=== PATIENT | female | born 1980 | race Caucasian/White ===

== ENCOUNTER 2020-10-28 10:37 | Outpatient (REF) | payer OTHER, SELFPAY ==
[2020-10-28 13:52] LABS: MANUAL DIFF FLAG NO
[2020-10-28 13:56] LABS: Basophils Percent Auto 0.3 % (0-2); Eosinophils Absolute Auto 0.3 X10*3/uL (0.0-0.4); Eosinophils Percent Auto 3.9 % (0-4); Hematocrit 39.6 % (37-47); Hemoglobin 13.2 g/dl (12.0-16.0); Imm Gran Abs Auto 0.02 X10*3/uL (0.00-0.03); Imm Gran Pct Auto 0.3 % (0.0-0.4); Lymphocytes Absolute Auto 1.8 X10*3/uL (1.2-4.9); Lymphocytes Percent Auto 26.5 % (20-40); Mean Corpuscular HGB Conc 33.3 g/dl (31.0-35.0); Mean Corpuscular Hemoglobin 28.6 pg (27.0-33.0); Mean Corpuscular Volume 85.9 fL (80-98); Mean Platelet Volume 9.9 fL (9.4-12.3); Monocytes Absolute Auto 0.6 X10*3/uL (0.1-1.2); Monocytes Percent Auto 8.5 % (2-11); Neutrophils Percent Auto 60.5 % (45-73); Platelet Count 370 X10*3/uL (160-400); Red Blood Count 4.61 X10*6/uL (4.20-5.50); Red Cell Distribution Width 12.8 % (11.0-16.0); White Blood Count 6.7 X10*3/uL (4.8-10.8)
[2020-10-28 14:09] LABS: Alanine Aminotransferase 28 U/L (0-31); Anion Gap 12 (12-20); Aspartate Amino Transferase 24 U/L (5-31); Blood Urea Nitrogen 11 mg/dL (9-16); Calcium 9.3 mg/dL (8.4-10.2); Carbon Dioxide 25 mmol/L (22-29); Chloride 107 mmol/L (96-108); Cholesterol 219 mg/dL; Estimated Glomerular Filt Rate > 60; Glucose Fasting 98 mg/dL (60-99); HDL Cholesterol 42 mg/dL; LDL Cholesterol Calculated 145 mg/dl; Potassium 4.2 mmol/L (3.3-5.1); Sodium 140 mmol/L (135-145); Triglycerides 162 mg/dL
[2020-10-28 14:47] LABS: Folate 13.3 ng/mL (> or = 4.0); Vitamin B12 339 pg/mL (200-900)
== END 2020-10-28 10:38 | disposition home or self-care (01) ==
LOC: HO.HMGCLDS 10:37
PROVIDERS: PCP Internal Medicine; Visit Provider Internal Medicine
DX: Z00.00 Encounter for general adult medical examination without abnormal findings (principal); E66.9 Obesity, unspecified; E55.9 Vitamin D deficiency, unspecified; E78.5 Hyperlipidemia, unspecified; I10 Essential (primary) hypertension
CPT/HCPCS: 36415; 80048; 80061; 82306; 82607; 82746; 84450; 84460; 85025

== ENCOUNTER 2020-12-14 10:00 | Outpatient (RCR) | payer OTHER, SELFPAY ==
--- NOTE | 2020-10-31 13:05 | MHC.PT.EP ---
[facility] [place] [facility] [place] [facility] [place] Office [address] Zara Bender [address] [phone] F: [phone] F: [phone] F: [phone] F: [phone] Physical Therapy Plan of Care Date of Evaluation: Date of Surgery: Diagnosis: LBP, B hip pain. Assessment: Pt is a 39/yo F referred to PT for eval/treat of LBP/ B hip bursitis; S/S are consistent with lumbopelvic dysfunction resulting in decreased tolerance and ability to perform ambulatory, standing and sitting tasks for duration as well as lifting objects of weight secondary to decreased hip abd/add/ext strength, abdominal strength, and hypermobility of lumbar spine as well as (+) lumbar instability test. Pt is deemed an appropriate candidate to receive skilled PT in order to address her physical limitations to improve her functional ability. Frequency and Duration: The patient will be seen 2 x / wk x 5 wks. Short Term Goals: initiate HEP w/ compliance angelique sitting for 30mins w/o pain angelique walking for at least 30 mins w/o pain Correction Goals: B hip strength to 4+/5 - abd/add/ext; initial 4-/5 angelique walking for more than an hour w/o pain pt will report I can lift heavey weight w/o increased pain; initial - mange if they are conveniently position (Abril) pt will report sitting does not cause me pain; initial pain prevents me from sitting for more than 1 hour - (Abril) Treatment Plan: Modalities to reduce pain, spasms and effusion. Manual therapy to restore motion and function. Therapeutic exercise to improve strength and flexibility. Neuromuscular re-education for posture and balance. Therapeutic activities to return to functional activities of daily living. Electronically signed by: Gallo Wlaker PT. Please sign and return to therapist. Thank you for your referral.
--- NOTE | 2020-12-14 16:49 | MHC.PT.DC ---
[facility] [place] Office [place] Office [place] Office [address] Zara Bender [address] [phone] F: [phone] F: [phone] F: [phone] F: [phone] Physical Therapy Discharge Report Diagnosis: LBP, B hip pain. Date of Surgery: Date of Evaluation: 10/31/20 Date of Discharge: 12/14/20 Treatments to Date: 8 Cancellations to Date: 0 No Shows to Date: 0 Discharge Status: Achieved Goals Improved Function Independent with HEP Discharge Summary: 12/14: pt spent the therapy session reviewing HEP made for her to follow at home. pt performed all ther/ex w/o pain and discomfort. pt required minimal cues. within 8 visits, pt was able to address all of her physical impairments and improve functional abilities. Pt was able to achieve all of her goals. at the day of DC, pt exhibits independence with her HEP. pt has been active participant in therapy and at home. PT feels confident discharging her today, pt is also in agreement. PT recommends to pt to continue performing her HEP at home and progressing accordingly. Electronically signed by: Gallo Walker PT Please sign and return to therapist. Thank you for your referral.
== END 2020-12-14 16:50 | disposition home or self-care (01) ==
LOC: HO.PTCHIC 10:00
PROVIDERS: PCP Internal Medicine; Visit Provider Internal Medicine
DX: M70.71 Other bursitis of hip, right hip (principal); M70.72 Other bursitis of hip, left hip; M54.5 Low back pain
CPT/HCPCS: 97110; 97112; 97140; 97161

== ENCOUNTER 2021-07-12 14:27 | Outpatient (REF) | payer OTHER, SELFPAY ==
--- NOTE | ~2021-07-12 | US_ITS ---
EXAMINATION: US VENOUS ULTRASOUND WITH DOPPLER LOWER EXTREMITY, RIGHT CLINICAL INFORMATION: Right lower extremity pain. Assess for occult DVT. COMPARISON: Radiographs right knee 09/21/2016 TECHNIQUE: Ultrasound of the deep veins is performed from the hip to the calf with compression sonography and color and pulse Doppler assessment. Spectral analysis with color-flow imaging is performed. FINDINGS: There is normal venous compression and respiratory variation and augmented flow. The visualized common femoral vein, superficial femoral vein, profunda femoral vein, popliteal vein, and the trifurcation region shows no evidence of deep venous thrombosis. No popliteal fossa cyst. No edema tracking in soft tissue planes. US/US venous duplex LE RT IMPRESSION: No DVT demonstrated in the right lower extremity.
== END 2021-07-12 14:28 | disposition home or self-care (01) ==
LOC: HO.US 14:27
PROVIDERS: Visit Provider Nurse Practitioner Family
DX: M79.604 Pain in right leg (principal)
CPT/HCPCS: 93971

== ENCOUNTER → 2021-07-31 13:51 | Outpatient (BNVA) | payer OTHER, SELFPAY | PROVIDERS: PCP Internal Medicine; Referring Provider Internal Medicine; Visit Provider Surgery | DX: L02.91 Cutaneous abscess, unspecified (principal) | CPT/HCPCS: 10061; 99202 ==

== ENCOUNTER 2021-08-09 13:00 | Outpatient (RCR) | payer OTHER, SELFPAY ==
--- NOTE | 2021-06-21 15:29 | MHC.PT.EP ---
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 Pt reports onset of pain began initially 3 years ago with worsening in February 2021 due to initially with insidious onset and most recently due to prolonged sitting. She presents today with impairments in pain, hip strength, core strength, muscle tightness, and posture. Pt's current occupation is working from home with a lot of sitting, with baseline physical activities including ADLs, gardening, bending, lifting, sitting. Pt expresses fpc goal of preventing this from continuing to happen, and is motivated to work towards this in PT. Clinical presentation today is most consistent with signs and sx associated with low back pain that is likely myofascial in nature and pt will benefit from skilled PT to address the following problems and impairments noted upon evaluation: pain, hip strength, core strength, muscle tightness, and posture. These problems limit the patient with the following functional activities: ADLs, gardening, bending, lifting, sitting. The prescribed treatment plan of care is medically necessary. Co-morbidities of none were identified and taken into considerations of plan of care. Pt was educated on HEP, role of PT, prognosis, POC. Frequency and Duration: The patient will be seen 2 x week x 4 weeks Short Term Goals: Pt will demonstrate negative prone quad test in 2 weeks for improved quad muscle length. Pt will demonstrate improved hip strength by 1/3 MMT for improved lumbopelvic stability in 2 weeks. Pt will demonstrate ability to perform PPT with good TA recruitment in 2 weeks for improved core strength. Fci Goals: Pt will demonstrate improved Abril score by 10% for improved overall functional mobility in 4 weeks. Pt will demonstrate ability to bend with min to no pain or stiffness in 4 weeks for improved ability to complete LE dressing. Pt will demonstrate ability to sit x 30 min with min to no stiffness or discomfort in 4 weeks for improved tolerance to work. Pt will demonstrate ability to transfer from floor with min to no difficulty in 4 weeks for improved ability to garden as this is her family's primary means of food in the summer. Treatment Plan: Modalities to reduce pain, spasms and effusion. Manual therapy to restore motion and function. Therapeutic exercise to improve strength and flexibility. Neuromuscular re-education for posture and balance. Therapeutic activities to return to functional activities of daily living. Electronically signed by: Armida Lucas, PT, DPT, ATC Please sign and return to therapist. Thank you for your referral.
--- NOTE | 2021-08-09 14:17 | MHC.PT.DC ---
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 She is unfortunately still experiencing numbness and tingling in her foot that has not changed since start of care. She has made progress towards her goals but does still have some limitations with this numbness and tingling. She is scheduled for an EMG in September and I encouraged her to attend this appointment. If this does not show any findings she may benefit from further imaging of her back and understands to attend follow ups if this is the case. Pt encouraged to continue with her HEP to maintain all benefits made thus far. At this time max benefits of PT have been provided and skilled PT is no longer indicated at this time. Pt is in agreement with d/c today. Electronically signed by: Armida Lucas, PT, DPT, ATC Please sign and return to therapist. Thank you for your referral.
== END 2021-08-09 14:18 | disposition home or self-care (01) ==
LOC: HO.PTCHIC 13:00
PROVIDERS: PCP Internal Medicine; Visit Provider Internal Medicine
DX: G57.03 Lesion of sciatic nerve, bilateral lower limbs (principal)
CPT/HCPCS: 97110; 97140; 97161

== ENCOUNTER 2021-10-03 13:02 | Outpatient (REF) | payer OTHER, SELFPAY ==
--- NOTE | ~2021-10-03 | MR_ITS ---
EXAMINATION: MR LUMBAR SPINE WITHOUT CONTRAST CLINICAL INFORMATION: Lumbar radiculopathy. Patient reports low back pain, bilateral hip and knee pain. COMPARISON: None. TECHNIQUE: MRI of the lumbar spine was obtained using routine sequences without contrast. FINDINGS: VERTEBRAL BODIES AND PARASPINAL STRUCTURES: There is mild retrolisthesis of L4 and L5. The vertebral body alignment is otherwise anatomic. There is mild disc height loss and disc desiccation at L5-S1. There is disc desiccation at L2-L3, L4-L5. Vertebral body heights are maintained. No evidence of acute fracture. No suspicious marrow signal changes are seen. The visualized retroperitoneal structures appear unremarkable. Psoas and paraspinal musculature appear unremarkable. CONUS MEDULLARIS AND CAUDA EQUINA: There is normal signal in the distal cord and conus. Conus terminates at L1. Cauda equina roots appear unremarkable. SPINAL LEVELS: T12-L1: No significant disc bulge, central or foraminal stenosis. L1-L2: No significant disc bulge, central or foraminal stenosis. L2-L3: Disc desiccation. Mild diffuse disc bulge, including mild broad-based posterior disc bulge. There is central annular fissure. No significant central or foraminal stenosis. L3-L4: No significant disc bulge, central or foraminal stenosis. Mild left greater than right facet arthropathy. L4-L5: There is a diffuse disc bulge, including a broad-based posterior disc bulge. There is a superimposed small central disc protrusion with a suspected annular tear. This appears to abut the traversing right L4 nerve. Bilateral facet arthropathy. No significant central canal or foramen stenosis. L5-S1: Mild disc degeneration, with disc height loss, disc desiccation. Bilateral facet arthropathy. Mild broadbase posterior disc bulge. Mild central canal narrowing. No significant foraminal stenosis. MR/MR lumbar spine wo con IMPRESSION: 1. Mild retrolisthesis of L4 and L5. There is a diffuse disc bulge, with a superimposed central disc protrusion with suspected annular tear. This appears to abut the traversing right L4 nerve. 2. Broad-based disc bulge at L5-S1. Mild central canal narrowing.
== END 2021-10-03 13:03 | disposition home or self-care (01) ==
LOC: HO.MRI 13:02
PROVIDERS: Visit Provider Psychiatry & Neurology Neurology
DX: M54.16 Radiculopathy, lumbar region (principal)
CPT/HCPCS: 72148

== ENCOUNTER 2022-01-30 12:34 | Outpatient (REF) | payer OTHER, SELFPAY ==
--- NOTE | ~2022-01-30 | MM_ITS ---
EXAMINATION: MM SCREENING DIGITAL BREAST TOMOSYNTHESIS, BILATERAL CLINICAL INFORMATION: Screening. Asymptomatic. COMPARISON: Mammography: July 19, 2014 TECHNIQUE: Digital breast tomosynthesis is performed in both the craniocaudal and mediolateral oblique views along with computer-aided detection (CAD). Synthesized 2D images are generated from the tomosynthesis. FINDINGS: There are scattered areas of fibroglandular density (ACR BI-RADS breast composition Category b). There are no significant masses, abnormal calcifications, or other abnormalities. MM/MM tomosynthesis screening BI IMPRESSION: No significant changes ASSESSMENT: BI-RADS 1: Negative RECOMMENDATION: Routine annual mammography screening. This patient's information was entered into a reminder system with a target due date for their next mammogram.
== END 2022-01-30 12:35 | disposition home or self-care (01) ==
LOC: HO.MAMMO 12:34
PROVIDERS: Visit Provider Internal Medicine
DX: Z12.31 Encounter for screening mammogram for malignant neoplasm of breast (principal)
CPT/HCPCS: 77063; 77067

== ENCOUNTER 2022-09-22 22:50 | Emergency (ER) | payer OTHER, SELFPAY ==
[2022-09-22 22:52] VITALS: BP 153/89; PULSE 119; RESP 18; TEMP 36.8; O2SAT 96; BMI 40.2
[2022-09-22 23:49] VITALS: BP 146/72; PULSE 97; RESP 14; TEMP 37.1; O2SAT 98
[2022-09-23 01:01] LABS: MANUAL DIFF FLAG NO
[2022-09-23 01:02] LABS: Basophils Percent Auto 0.3 % (0-2); Eosinophils Absolute Auto 0.1 X10*3/uL (0.0-0.4); Eosinophils Percent Auto 0.5 % (0-4); Hematocrit 38.9 % (37.0-47.0); Hemoglobin 13.3 g/dl (12.0-16.0); Imm Gran Abs Auto 0.06 X10*3/uL (0.00-0.03); Imm Gran Pct Auto 0.4 % (0.0-0.4); Lymphocytes Absolute Auto 1.9 X10*3/uL (1.2-4.9); Lymphocytes Percent Auto 12.1 % (20-40); Mean Corpuscular HGB Conc 34.2 g/dl (31.0-35.0); Mean Corpuscular Volume 84.7 fL (80.0-98.0); Mean Platelet Volume 9.8 fL (9.4-12.3); Monocytes Absolute Auto 1.2 X10*3/uL (0.1-1.2); Monocytes Percent Auto 7.3 % (2-11); Neutrophils Absolute Auto 12.6 x10*3/uL (2.0-8.3); Neutrophils Percent Auto 79.4 % (45-73); Platelet Count 333 X10*3/uL (160-400); Red Blood Count 4.59 X10*6/uL (4.20-5.50); Red Cell Distribution Width 13.2 % (11.0-16.0); White Blood Count 15.9 X10*3/uL (4.8-10.8)
--- NOTE | 2022-09-23 01:02 | ED.ABDPAIN ---
HPI - Abdominal Pain General Chief Complaint: Abdominal Pain Stated Complaint: Abd pain/Fever Time Seen by Provider: 09/23/22 00:08 Source: patient Mode of arrival: ambulatory Limitations: no limitations History of Present Illness HPI narrative: 41-year-old female with no major medical problems presents with lower abdominal pain. The pain localizes to left lower quadrant. The pain is a 3/10 at rest and a 7/10 with movement or palpation. The pain occasionally radiates to the suprapubic area. She describes the pain as sharp in nature. Patient initially thought she was having constipation, took stool softeners but no change. Patient denies any diarrhea. She has had some change in stool habit. There has been no blood in her stool. She denies any nausea vomiting. She had a temperature of 99.9? at home. She has never had pain like this before. Patient normally takes Celebrex for various aches and pains however she has not taken it since Saturday. Her symptoms started on approximately 2-3 days ago. MD elicited complaint: abdominal pain Pertinent past history: constipation Onset (ago): day(s) (3) Pain Consistency: constant Location: LLQ Severity: moderate Quality: stabbing and sharp Radiation: suprapubic Migration to: no migration Exacerbating factors: movement Relieving factors: rest Associated symptoms: constipation Related Data Home Medications Medication Instructions Recorded Confirmed levonorgestrel 21 mcg/24 hours (8 intrauterine 10/28/20 07/31/21 yrs) 52 mg intrauterine device (Mirena) acetaminophen 500 mg tablet 500 mg PO Q6H PRN 06/09/21 07/31/21 (Tylenol Extra Strength) cetirizine 10 mg tablet 10 mg PO DAILY PRN 12/05/21 12/05/21 Previous Rx's Medication Instructions Recorded naproxen 500 mg tablet 500 mg PO BID PRN pain #20 tabs 07/12/21 amoxicillin 875 mg-potassium 1 tab PO Q8H 10 days #30 tabs 09/23/22 clavulanate 125 mg tablet Allergies Allergy/AdvReac Type Severity Reaction Status Date / Time latex Allergy Unknown Rash, Verified 04/27/22 10:54 redness diphenhydramine AdvReac Unknown Hypertensio Verified 04/27/22 10:54 [From Benadryl] n eggs white AdvReac Unknown stomach Uncoded 02/26/22 04:00 upset Flu shot AdvReac Unknown GI upset Uncoded 02/26/22 04:00 quinoa AdvReac Unknown severe Uncoded 02/26/22 04:00 vomiting and diarrhea Review of Systems Review of Systems CONSTITUTIONAL: Denies weight loss, fever and chills. HEENT: Denies changes in vision and hearing. RESPIRATORY: Denies SOB and cough. CV: Denies palpitations no CP. GI: + abdominal pain, - nausea, vomiting and diarrhea. : Denies dysuria and urinary frequency. MSK: Denies myalgia and joint pain. SKIN: Denies rash and pruritus. NEUROLOGICAL: Denies headache and syncope. PSYCHIATRIC: Denies recent changes in mood. Denies anxiety and depression. All other ROS are negative unless in HPI PMFSH Past Medical History Medical History ADD (attention deficit disorder) Bursitis of both hips Dyslipidemia Hearing loss of both ears Inattention Lumbago Obesity Piriformis syndrome of both sides Vitamin D deficiency Family History Family History Mother Substance use disorder Mental health disorder Breast cancer, Onset Age: 45 Father HTN (hypertension) Dyslipidemia Substance use disorder Maternal Grandfather Lung cancer Social History Social History Housing: House Patient Tobacco Use Status: Never used Tobacco e-Cigarette/Vaping Use: Never Used Second Hand Smoke Exposure: No Advance Directives: No Advance Directives Information Provided: No Current occupational status: unemployed Current occupation: [employer] at home Cognitive needs: No Hearing needs: No Vision needs: Yes Physical Exam ED Vital Signs: Vital Signs - 24 hr 09/22/22 22:52 09/22/22 23:49 09/23/22 03:30 Temperature 98.2 F 98.8 F 99.2 F Pulse Rate 119 H 97 97 Respiratory Rate 18 14 16 Blood Pressure 153/89 H 146/72 H 139/71 Pulse Oximetry 96 98 95 Oxygen Delivery Method Room Air Room Air Room Air BMI result Body Mass Index 40.2 GEN: Well developed, no acute distress, alert, oriented HEENT: Normocephalic, atraumatic, normal external ears, nose appears normal, no oropharyngeal edema or exudates Eyes: Normal to appearance Neck: Supple, no lymphadenopathy Respiratory: Talks in complete sentences, no respiratory distress, clear to auscultation bilaterally Cardiovascular: Regular rate and rhythm, no murmurs rubs or gallops Abdomen: Soft, left lower quadrant tenderness, nondistended, positive guarding, no rebound, negative McBurney's point tenderness, negative Martin sign, no CVA tenderness Back: No CVA tenderness Extremities: No clubbing cyanosis or edema Neurologic: No focal neurologic deficits, cranial nerves 2-12 intact, strength is 5/5 bilaterally Skin: No rash Course Reevaluation(s) Reevaluation #1: It is 3:47 a.m.. The workup is complete. Patient's CT scan is consistent with acute diverticulitis. She was given Augmentin in the emergency department. She will continue taking this for 10 days 3 times daily. She is aware to return any worsening or concerning symptoms. 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 Time: 03:48 Medical Decision Making Medical Decision Making [facility] Narrative: 41-year-old female presents with lower abdominal pain. Examination revealed left lower quadrant tenderness with guarding no rebound. Differential diagnosis includes diverticulitis, colitis, epiploic appendagitis, mesenteric ischemia, appendicitis, UTI, pyelonephritis, ovarian cyst. Workup will include laboratory analysis, CT scan abdomen pelvis to assist in a definitive diagnosis and/or rule out other diagnoses. I have offered the patient analgesia but she does for his at this time. Differential Diagnosis Differential Diagnoses: The differential diagnosis associated with the presentation includes (See above) Admission/Observation Consideration of admission/observation: Escalation of care including admission/observation considered Lab Data [facility] Lab Attestation statement: I reviewed the patient's lab results. 09/23/22 00:57 09/23/22 00:57 Labs: Lab Results 09/23/22 09/23/22 09/23/22 Range/Units 00:57 00:57 00:57 WBC 15.9 H (4.8-10.8) X10*3/uL RBC 4.59 (4.20-5.50) X10*6/uL Hgb 13.3 (12.0-16.0) g/dl Hct 38.9 (37.0-47.0) % MCV 84.7 (80.0-98.0) fL MCH 29.0 (27.0-33.0) pg MCHC 34.2 (31.0-35.0) g/dl RDW 13.2 (11.0-16.0) % Plt Count 333 (160-400) X10*3/uL MPV 9.8 (9.4-12.3) fL Immature Gran % (Auto) 0.4 (0.0-0.4) % Neut % (Auto) 79.4 H (45-73) % Lymph % (Auto) 12.1 L (20-40) % [place] % (Auto) 7.3 (2-11) % Eos % (Auto) 0.5 (0-4) % Baso % (Auto) 0.3 (0-2) % Lymph # (Auto) 1.9 (1.2-4.9) X10*3/uL [place] # (Auto) 1.2 (0.1-1.2) X10*3/uL Eos # (Auto) 0.1 (0.0-0.4) X10*3/uL Baso # (Auto) 0.0 (0.0-0.2) X10*3/uL Abs Immat Gran (auto) 0.06 H (0.00-0.03) X10*3/uL Absolute Neuts (auto) 12.6 H (2.0-8.3) x10*3/uL Absolute Nucleated RBC 0.000 (0.0-0.012) X10*3/uL Nucleated RBC % (auto) 0.0 (0.0-0.2) /100WBC Sodium (135-145) mmol/L Potassium (3.3-5.1) mmol/L Chloride (96-108) mmol/L Carbon Dioxide (22-29) mmol/L Anion Gap (12-20) BUN (9-16) mg/dL Creatinine (0.5-1.4) mg/dL Estim Creat Clear Calc Estimated GFR Random Glucose (60-115) mg/dL Calcium (8.4-10.2) mg/dL Total Bilirubin (0.0-1.0) mg/dL Direct Bilirubin (0.0-0.5) mg/dL AST (5-31) U/L ALT (0-31) U/L Alkaline Phosphatase (39-117) U/L Total Protein (6.5-8.0) g/dL Albumin (3.5-5.0) g/dL Lipase (8-78) U/L Urine Color Yellow Urine Appearance Clear Urine pH 8.5 (5.0-9.0) Ur Specific [place] 1.010 (1.005-1.025) Urine Protein Negative (Neg-Trace) mg/dL Urine Glucose (UA) Negative (Negative) mg/dL Urine Ketones Negative (Negative) mg/dL Urine Blood Small (1+) H (Negative) Urine Nitrite Negative (Negative) Ur Leukocyte Esterase Negative (Negative) Urine RBC 6-10 H (0-2) /HPF Urine WBC 0-5 (0-5) /HPF Ur Squamous Epith Cells 0-2 (0-2) /HPF Urine Bacteria None Seen (None Seen) Hyaline Casts 0-2 (0-2) /LPF Urine Test NEGATIVE (NEGATIVE) 09/23/22 Range/Units 01:16 WBC (4.8-10.8) X10*3/uL RBC (4.20-5.50) X10*6/uL Hgb (12.0-16.0) g/dl Hct (37.0-47.0) % MCV (80.0-98.0) fL MCH (27.0-33.0) pg MCHC (31.0-35.0) g/dl RDW (11.0-16.0) % Plt Count (160-400) X10*3/uL MPV (9.4-12.3) fL Immature Gran % (Auto) (0.0-0.4) % Neut % (Auto) (45-73) % Lymph % (Auto) (20-40) % [place] % (Auto) (2-11) % Eos % (Auto) (0-4) % Baso % (Auto) (0-2) % Lymph # (Auto) (1.2-4.9) X10*3/uL [place] # (Auto) (0.1-1.2) X10*3/uL Eos # (Auto) (0.0-0.4) X10*3/uL Baso # (Auto) (0.0-0.2) X10*3/uL Abs Immat Gran (auto) (0.00-0.03) X10*3/uL Absolute Neuts (auto) (2.0-8.3) x10*3/uL Absolute Nucleated RBC (0.0-0.012) X10*3/uL Nucleated RBC % (auto) (0.0-0.2) /100WBC Sodium 140 (135-145) mmol/L Potassium 3.7 (3.3-5.1) mmol/L Chloride 106 (96-108) mmol/L Carbon Dioxide 24 (22-29) mmol/L Anion Gap 14 (12-20) BUN 10 (9-16) mg/dL Creatinine 0.87 (0.5-1.4) mg/dL Estim Creat Clear Calc 93.9 Estimated GFR > 60 Random Glucose 103 (60-115) mg/dL Calcium 9.6 (8.4-10.2) mg/dL Total Bilirubin 0.5 (0.0-1.0) mg/dL Direct Bilirubin 0.1 (0.0-0.5) mg/dL AST 22 (5-31) U/L ALT 25 (0-31) U/L Alkaline Phosphatase 95 (39-117) U/L Total Protein 6.9 (6.5-8.0) g/dL Albumin 4.2 (3.5-5.0) g/dL Lipase 12 (8-78) U/L Urine Color Urine Appearance Urine pH (5.0-9.0) Ur Specific [place] (1.005-1.025) Urine Protein (Neg-Trace) mg/dL Urine Glucose (UA) (Negative) mg/dL Urine Ketones (Negative) mg/dL Urine Blood (Negative) Urine Nitrite (Negative) Ur Leukocyte Esterase (Negative) Urine RBC (0-2) /HPF Urine WBC (0-5) /HPF Ur Squamous Epith Cells (0-2) /HPF Urine Bacteria (None Seen) Hyaline Casts (0-2) /LPF Urine Test (NEGATIVE) Independent Interpretation I performed an independent interpretation of an: CT Scan (S: Inflammatory change the sigmoid colon with the presence of diverticulosis, suggestive of acute diverticulitis of the sigmoid colon) Radiology Impression Discussion of test interpretation with radiology: I have reviewed the radiologist's reading. Independent Historian Clinical information obtained from an independent historian. History obtained from or confirmed by: Spouse Tests considered The following testing was considered but not selected: Will treat Zocor wound CT scan appears more appropriate to rule out gastrointestinal inflammation and infection Prescription Management I considered prescription management with: Pain Medication and Antibiotic Medications Administered Discontinued Medications Generic Name Dose Route Start Last Admin Trade Name Freq PRN Reason Stop Dose Admin Iohexol 85 ml 09/23/22 01:52 09/23/22 01:53 Iohexol 350 Mg/Ml 100 Ml Infus..Btl IV 09/23/22 01:53 85 ml ONCE ONE Administration Discharge Plan Discharge Clinical Impression: Abdominal pain, Diverticulitis of sigmoid colon Patient Disposition: Home, Self-Care Instructions: Diverticulitis (ED), Diverticulitis Diet (ED) Prescriptions: New amoxicillin-pot clavulanate 875-125 mg tablet 1 tab PO Q8H 10 Days Qty: 30 0RF No Action Mirena 20 mcg/24 hours (6 yrs) 52 mg intrauterine device intrauterine naproxen 500 mg tablet 500 mg PO BID PRN (Reason: pain) Qty: 20 0RF acetaminophen [Tylenol Extra Strength] 500 mg tablet 500 mg PO Q6H PRN cetirizine 10 mg tablet 10 mg PO DAILY PRN Referrals: Alicja Tavares MD [Primary Care Provider] - 3 days
[2022-09-23 01:07] LABS: Appearance Urine Clear; Color Urine Yellow; Glucose Urine UA Negative (Negative); Leukocyte Esterase Urine Negative (Negative); Nitrite Urine Negative (Negative); PH 8.5 (5.0-9.0); UMIC TRIGGER UACC YES; Urine Blood Small (1+) (Negative); Urine Ketones Negative (Negative); Urine Protein Negative (Neg-Trace)
[2022-09-23 01:09] LABS: UPreg QC Valid YES; Urine Pregnancy NEGATIVE (NEGATIVE)
[2022-09-23 01:12] LABS: Bacteria Urine None Seen (None Seen); Hyaline Casts Urine 0-2 /LPF (0-2); Squamous Epithelial Cell Urine 0-2 /HPF (0-2); WBC Urine 0-5 /HPF (0-5)
[2022-09-23 01:35] LABS: Alanine Aminotransferase 25 U/L (0-31); Albumin Level 4.2 g/dL (3.5-5.0); Alkaline Phosphatase 95 U/L (39-117); Anion Gap 14 (12-20); Aspartate Amino Transferase 22 U/L (5-31); Bilirubin Direct 0.1 mg/dL (0.0-0.5); Bilirubin Total 0.5 mg/dL (0.0-1.0); Blood Urea Nitrogen 10 mg/dL (9-16); Calcium 9.6 mg/dL (8.4-10.2); Carbon Dioxide 24 mmol/L (22-29); Chloride 106 mmol/L (96-108); Creatinine Clr Calc Pharmacy 93.9; Estimated Glomerular Filt Rate > 60; Glucose Random 103 mg/dL (60-115); Lipase 12 U/L (8-78); Potassium 3.7 mmol/L (3.3-5.1); Sodium 140 mmol/L (135-145); Total Protein 6.9 g/dL (6.5-8.0)
[2022-09-23 03:30] VITALS: BP 139/71; PULSE 97; RESP 16; TEMP 37.3; O2SAT 95
--- NOTE | 2022-09-23 04:39 | PC.NURSE ---
iv line removed at discharge. pt medicated according to mar. pt at bedside. pt reports continued pain though does not want pain medication due to family history with addiction this rn educated pt there are different options for pain medication pt declined offer made by this rn for pain management. pt ambulatory at discharge . pt provided with discharge packet. pt verbalized understanding of discharge plan
== END 2022-09-23 04:00 | disposition home or self-care (01) ==
PROVIDERS: Emergency Provider Emergency Medicine; PCP Internal Medicine
DX: K57.32 Diverticulitis of large intestine without perforation or abscess without bleeding (principal); R10.32 Left lower quadrant pain; E78.5 Hyperlipidemia, unspecified; E66.9 Obesity, unspecified; Z68.41 Body mass index [BMI] 40.0-44.9, adult; Z79.899 Other long term (current) drug therapy
CPT/HCPCS: 36415; 74177; 80053; 81001; 81025; 82248; 83690; 85025; 99284; Q9967

== ENCOUNTER 2023-03-07 13:41 | Outpatient (AMB) | payer OTHER, SELFPAY ==
[2023-03-07 13:43] VITALS: BP 130/80; PULSE 82; TEMP 36.2; O2SAT 98; BMI 42.6
--- NOTE | 2023-03-07 13:43 | MHC.OFFWIV ---
Intake Vital Signs 03/07/23 13:43 Height 5 ft 2 in Weight 233 lb BMI 42.6 BP 130/80 Blood Pressure Location Lt brachial Position Sitting Pulse 82 Pulse Source Pulse Oximeter Temp 97.1 F Pulse Oximetry (%) 98 Oxygen Delivery Method Room Air Intake Visit Reasons: EP, low back pain Intake Note: pt is here for c.o low back pain Pain is minimal difficult to move started Saturday night Patient Tobacco Use Status: Never used Tobacco Allergies latex Allergy (Unknown, Verified 03/07/23 13:48) Rash, redness diphenhydramine [From Benadryl] Adverse Reaction (Unknown, Verified 03/07/23 13:48) Hypertension eggs white Adverse Reaction (Unknown, Uncoded 02/26/22 04:00) stomach upset Flu shot Adverse Reaction (Unknown, Uncoded 02/26/22 04:00) GI upset quinoa Adverse Reaction (Unknown, Uncoded 02/26/22 04:00) severe vomiting and diarrhea Do you need a note to return to daycare/school/sports/work: No HPI EP, low back pain HPI Details This is a 42-year-old female patient who presents today for lower back pain. She states that she has a several year history of lower back pain. She had a MRI done 09/23 2021, which revealed diffuse disc bulge at L4/5 with annular tear and abutment of right L4 nerve. Additionally there was a road-based disc bulge at L5-S1 and mild central canal narrowing. She has occasional right lateral leg radiation and tingling. Denies any saddle anesthesia or bowel/bladder dysfunction. m This past weekend she was bending forward to make her bed and had the sensation of her lower back locking up, and had spasms of lower back and legs. She has tried doing some gentle stretching and exercises learned in PT. She has also been taking some Advil. 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 Cognitive needs: No Hearing needs: No Vision needs: Yes Review of Systems Const All systems reviewed & are unremarkable except as noted in HPI and below Physical Exam Vital Signs: Last Vital Signs Temp 97.1 F 03/07/23 13:43 Pulse 82 03/07/23 13:43 Pulse Ox 98 03/07/23 13:43 Oxygen Delivery Method Room Air 03/07/23 13:43 BMI result Body Mass Index 42.6 Const General: cooperative Nutritional Appearance: obese Resp Effort & Inspection: normal respiratory effort Back/Spine/Pelvis Thoracic/Lumbar Spine: thoracic and lumbar spine normal to inspection, thoraco-lumbar spasm on the right greater than left and straight leg raise positive (positive at 90 degrees on right. Negative on left.) Skin General skin exam: no rashes or lesions noted Neuro Other: Reported intermittent paresthesias right lateral leg General: gait normal and deep tendon reflexes 2+ bilaterally Extrem General: Yes capillary refill normal and Yes no clubbing, cyanosis or edema Psych Appearance: grossly normal Mental Status: mental status grossly normal Speech and movement: Normal speech and movement present Assessment & Plan Assessment & Plan (1) Right lumbar radiculopathy: Code(s): M54.16 - Radiculopathy, lumbar region Plan: Acute on chronic lower back injury with lumbar spasms and recurrence of right L4/5 radiculopathy. MRI has some concerning findings. Patient has never seen any instructional technology specialist however would like to. She has done PT with some minor benefit. I would like to refer her to Dr. Jacobs at the spine center for evaluation. I will conult with PCP Dr. Tavares regarding referral. In the interim, I will start patient on a short course of muscle relaxers and meloxicam. We reviewed indications, use, possible side effects of these medications. We discussed importance of ongoing gentle stretching, healthy lifestyle. (2) Lumbar paraspinal muscle spasm: Code(s): M62.830 - Muscle spasm of back Plan: Plan as above. Medications: New meloxicam Take once a day with food. Do not take Naproxen while taking this medication. m 15 mg PO DAILY 7 tabs 0RF 7 days M54.16 - Radiculopathy, lumbar region, M62.830 - Muscle spasm of back cyclobenzaprine 10 mg PO BID PRN 14 tabs 0RF muscle spasm 7 days M54.16 - Radiculopathy, lumbar region, M62.830 - Muscle spasm of back Coding Level of Care Code Est Pt Level 3 (97352) Diagnoses Right lumbar radiculopathy M54.16 Lumbar paraspinal muscle spasm M62.830
== END 2023-03-07 14:38 | disposition home or self-care (01) ==
PROVIDERS: PCP Internal Medicine; Visit Provider Nurse Practitioner Family
DX: M54.16 Radiculopathy, lumbar region (principal); M62.830 Muscle spasm of back
CPT/HCPCS: 99213

== ENCOUNTER 2023-04-05 13:41 | Outpatient (AMB) | payer OTHER, SELFPAY ==
--- NOTE | 2023-04-05 14:20 | A.SPINEOV_ITS ---
Intake Intake Visit Reasons: low back pain Intake Note: Mrs. Dawson is here today c/o low back pain. MRI done @ [facility] [place]. 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: No Allergies latex Allergy (Unknown, Verified 03/07/23 13:48) Rash, redness diphenhydramine [From Benadryl] Adverse Reaction (Unknown, Verified 03/07/23 13:48) Hypertension eggs white Adverse Reaction (Unknown, Uncoded 02/26/22 04:00) stomach upset Flu shot Adverse Reaction (Unknown, Uncoded 02/26/22 04:00) GI upset quinoa Adverse Reaction (Unknown, Uncoded 02/26/22 04:00) severe vomiting and diarrhea Assessment & Plan Assessment & Plan (1) Lumbar disc disease with radiculopathy: Code(s): M51.16 - Intervertebral disc disorders with radiculopathy, lumbar region Plan Dear Dr Tavares, Thank you for referring Mrs Dawson to our office today. She is a very nice 42-year-old female presents to the office today for evaluation of an intermittent but persistently worsening low back pain going down her right leg into her lateral thigh, lateral calf and the outer part of her foot. She has had this issue going back as far as 2009. Typically it will happen when she is bending forward she will get an intense pain in her back and this pain will shoot down her leg. Often leaves her incapacitated for days on end. It can be unpredictable, but when it does happen it is horrific pain. Through the years she is gone through numerous rounds of conservative treatment including physical therapy, medication trials like Motrin, Tylenol etc.. The symptoms are becoming more frequent. She recently had a flare-up in February after bending forward just to fix a sheet on her bed and she was down for at least a week. She has no symptoms on the left side. She has not yet had any cortisone injections or chiropractic treatments. PMH: No significant past medical history outside of remote history of diverticulitis Social hx: She has not smoke, no drugs or alcohol Medications: She only takes ftrc-mcr-cwcupoc medications as needed Allergies: Flu VAX and latex Physical exam: Awake alert oriented no acute distress, strength in bilateral upper and lower extremities are normal. no Yanick sign, no clonus, slightly brisk reflexes in the patella Imaging review: Lumbar MRI done last year shows retrolisthesis of L4 and L5. There is some mild facet arthritis. At L5-S1 there is a small central disc herniation. 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 It almost appears as though it is a developmental anomaly with some features that seemed to resemble a facet joint. It does not appear to be fused to the sacrum. Impression: 42-year-old female presents with history of chronic low back pain with what sounds like an L5 or an S1 radiculopathy, typically happens when she is doing light activity or just bending forward doing something simple but it will incapacitating for days on end. The flare-ups are becoming more frequent. She is done numerous rounds of physical therapy and medication trials and they never seemed to really do much as the symptoms continued to come back month after month. She is neurologically intact. She is frustrated because she does not understand why these things keep happening. Her MRI shows abnormalities in the sense that she has a retrolisthesis at L4 and L5 suggestive there is some kind of defect in the disc at this level. There was also then disc herniation at L5-S1 on her MRI 2021. As well as there is a pseudoarticulation of the transverse process of L5 onto the sacrum, it does not appear to be fused to the sacrum. I am not sure what to make of this but I am wondering if that has not involved with lack of mobility on that side may be causing some stress reaction at the disc level or the L4-[address], this looks like something I need a new MRI to assess whether or not it would benefit from surgery. I will also get flexion-extension x-rays to evaluate the integrity of the L4-5 disc in dynamic motion. Once the MRI and the x-ray complete I will see her back and reassess. Thank you for allowing us to care for your patient. The total time spent with this visit with this patient was 45 minutes reviewing history, physical exam, lumbar imaging review, and implementation of treatment plan or further diagnostic testing Steve Jacobs MD,PhD [facility] Orders: Orders XR lumbar spine 4V min Today M51.16 - Intervertebral disc disorders with radiculopathy, lumbar region MR lumbar spine wo con Today M51.16 - Intervertebral disc disorders with radiculopathy, lumbar region Coding Level of Care Code New Pt Level 4 (13450) Diagnoses Lumbar disc disease with radiculopathy M51.16
== END 2023-04-05 15:20 | disposition home or self-care (01) ==
PROVIDERS: PCP Internal Medicine; Referring Provider Internal Medicine; Visit Provider Physician Assistant
DX: M51.16 Intervertebral disc disorders with radiculopathy, lumbar region (principal)
CPT/HCPCS: 99204; 99214

== ENCOUNTER 2023-04-05 13:41 | Outpatient (REF) | payer OTHER, SELFPAY | END 2023-04-05 13:42 | disposition home or self-care (01) | LOC: HO.HOSX 13:41 | PROVIDERS: PCP Internal Medicine; Referring Provider Internal Medicine; Visit Provider Physician Assistant | DX: M51.16 Intervertebral disc disorders with radiculopathy, lumbar region (principal) | CPT/HCPCS: 99202 ==

== ENCOUNTER 2023-04-23 17:33 | Outpatient (REF) | payer OTHER, SELFPAY ==
--- NOTE | ~2023-04-23 | MR_ITS ---
EXAMINATION: MR LUMBAR SPINE WITHOUT CONTRAST CLINICAL INFORMATION: Intervertebral disc abnormality. Radiculopathy of the lumbar region. COMPARISON: CT abdomen and pelvis from 09/23/2022. Lumbar spine MRI from 10/03/2021. TECHNIQUE: MRI of the lumbar spine was obtained using routine sequences without contrast. Limited evaluation. The patient was only able to tolerate sagittal T2-weighted imaging. Evaluation was aborted after this sequence secondary to patient claustrophobia. FINDINGS: Transitional vertebral anatomy. There is left hemisacralization of L5 with pseudoarticulation of the left transverse process of L5 with the sacral all. Minimal left convex curvature of the lower lumbar spine. Mild degenerative retrolisthesis of L4 on L5. Moderate degenerative disc disease at L4-L5. Mild degenerative disc disease at L2-L3 and L5-S1. Associated mild mixed Modic type discogenic and plate changes. On limited sagittal evaluation, a central/right subarticular disc extrusion with inferior migration is again demonstrated at L4-L5 (this appears slightly progressed compared to 2021). There appears to be mild diffuse disc bulge at L5-S1. Prominence of the epidural lipomatous tissue below the level of L5. Normal appearance of the caudal spinal cord. The conus medullaris terminates at the level of L1. Mild subcutaneous edema within the posterior soft tissues of the back. MR/MR lumbar spine wo con IMPRESSION: Limited evaluation. Only sagittal T2-weighted imaging was obtained secondary to patient claustrophobia. 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 On limited evaluation, a central/right subarticular disc extrusion with inferior migration is at L4-L5 appears similar to slightly progressed compared to 2021.
== END 2023-04-23 17:34 | disposition home or self-care (01) ==
LOC: HO.MRI 17:33
PROVIDERS: PCP Internal Medicine; Visit Provider Physician Assistant
DX: M51.16 Intervertebral disc disorders with radiculopathy, lumbar region (principal)
CPT/HCPCS: 72148

== ENCOUNTER 2023-04-24 10:03 | Outpatient (AMB) | payer OTHER, SELFPAY ==
[2023-04-24 10:04] VITALS: BP 130/80; PULSE 91; O2SAT 97; BMI 42.2
--- NOTE | 2023-04-24 10:04 | MHC.PC.OV ---
Vital Signs 04/24/23 10:04 Height 5 ft 2 in Weight 231 lb BMI 42.2 BP 130/80 Blood Pressure Location Lt brachial Position Sitting Pulse 91 Pulse Source Pulse Oximeter Pulse Oximetry (%) 97 Intake Visit Reasons: Est Care/Requesting Annual PE/Overdue/Per Haim Intake Note: pt is here for annual exam. patient states she has a concern about a cyst on her left shoulder that has been ongoing, she also states she is claustrophobic and needs an open MRI order placed, patient needs a mammogram referral and referral for OBGYN, and patient is also concerned about rapid weight gain for about 4 years 50 lbs Attendance Clerk Required: No Accompanied by: Self / Same As Patient Is last menstrual period known: Yes (20 years ) Post menopausal: No Patient : No Allergies latex Allergy (Unknown, Verified 04/24/23 10:28) Rash, redness diphenhydramine [From Benadryl] Adverse Reaction (Unknown, Verified 04/24/23 10:28) Hypertension eggs white Adverse Reaction (Unknown, Uncoded 04/24/23 10:28) stomach upset Flu shot Adverse Reaction (Unknown, Uncoded 04/24/23 10:28) GI upset quinoa Adverse Reaction (Unknown, Uncoded 04/24/23 10:28) severe vomiting and diarrhea Medication List - Last Reconciled 04/24/23 by BERNARD Dixon levonorgestrel (Mirena) intrauterine Tobacco use date assessed: 04/24/23 Dental Screening Dental Screen Date: 04/24/23 Did you have a dental visit in the last 12 months?: Yes Did you have a dental problem in the last 6 months where you did not have access to dental care?: No Was dental information given to patient?: Patient has dentist HPI HPI Comments History of Present Illness Details Patient is a 42-year-old female here to establish care and have her physical exam. She has a past medical history significant for lower back pain, and dyslipidemia. She is currently seeing the [facility] here at [facility]. She is due for Pap smear and mammogram, will refer. The patient declined influenza booster. Patient has a chief complaint of recurring cysts on her left shoulder. She last had a the incision and drainage of a cyst on her left shoulder 1 year ago, the patient states that there is a pinprick that never closed on her shoulder that has purulent discharge during the week. Denies pain, denies redness or edema. Patient does state that the site often has an unpleasant odor. Denies trauma to the area or recent fevers. [facility] Medical History Lumbar disc disease with radiculopathy ADD (attention deficit disorder) Piriformis syndrome of both sides Inattention Hearing loss of both ears Bursitis of both hips Lumbago Obesity Dyslipidemia Vitamin D deficiency Surgical History (Updated 04/24/23 @ 10:19 by Chino Persaud, [facility]) No pertinent past surgical history Family History (Updated 04/24/23 @ 10:36 by BERNARD Dixon) Mother Substance use disorder Mental health disorder Breast cancer, Onset Age: 45 Father HTN (hypertension) Dyslipidemia Substance use disorder Amyloidosis Maternal Grandfather Lung cancer Social History Housing: House Patient Tobacco Use Status: Never used Tobacco e-Cigarette/Vaping Use: Never Used Second Hand Smoke Exposure: No Current occupational status: unemployed Current occupation: [employer] at home Cognitive needs: No Hearing needs: No Vision needs: Yes Female Reproductive History Menstrual control method: progestin IUCD Date of Mammogram: 01/23/22 History of abnormal mammogram: No Questionnaire PHQ-9 Over the last 2 weeks, how often have you been bothered by any of the following problems? 1. Little interest or pleasure in doing things: several days 2. Feeling down, depressed, or hopeless: several days 3. Trouble falling or staying asleep, or sleeping too much: several days 4. Feeling tired or having little energy: more than half the days 5. Poor appetite or overeating: more than half the days 6. Feeling bad about yourself - or that you are a failure or have let yourself or your family down: several days 7. Trouble concentrating on things, such as reading the newspaper or watching television: several days 8. Moving or speaking so slowly that other people could have noticed. Or the opposite - being so fidgety or restless that you have been moving around a lot more than usual: not at all 9. Thoughts that you would be better off or of hurting yourself in some way: not at all Total score: 9 Depression Screening Interpretation: Negative Depression Screening Done: Yes 26675 - PHQ-9 Billing: Yes Source: Developed by Drs. Jann Camargo, Rachel Kumar, Varun Madrid and colleagues, with an educational aron from [employer]. Thrive Questionnaire Date Thrive assessed: 04/24/23 I am a: Patient What is your living situation today?: I have a steady place to live Within the past 12 months, did the food you bought not last and you didn't have the money to get more?: Never true Within the past 12 months, did you worry whether your food would run out before you got money to buy more?: Never true Do you have trouble paying for medicines?: No Do you have trouble getting transportation to medical appointments?: No Do you have trouble paying your heating and electricity bill?: No Do you have trouble taking care of your child, family member or friend?: No Do you have trouble with day-to-day activities such as bathing, preparing meals, shopping, managing finances, etc.?: No Are you currently unemployed and looking for a job?: No Are you interested in more education?: No Please select the resources that you would like help with: None Currently or been in a relationship where the following occur: no concerns reported THRIVE Score: 0 AUDIT C Alcohol Use Questionnaire (AUDIT-C) 1. How often do you have a drink containing alcohol?: Monthly or less 2. How many drinks containing alcohol do you have on a typical day when you are drinking?: 1 or 2 3. How often do you have six or more drinks on one occasion?: Never Total Score: 1 Score Reviewed/Action Taken: Yes CHRISTIAN-7 AMB Questionnaire CHRISTIAN-7 Date CHRISTIAN - 7 assessed: 04/24/23 Feeling nervous, anxious, or on edge: 1 = Several days Not being able to stop or control worryin = Several days Worrying too much about different things: 1 = Several days Trouble relaxin = More than half the days Being so restless that it is hard to sit still: 2 = More than half the days Becoming easily annoyed or irritable: 1 = Several days Feeling afraid as if something awful might happen: 1 = Several days Total CHRISTIAN-7 score (0-4 normal; 5-9 mild; 10-14 moderate; 15-21 severe): 9 Source: Developed by Drs. Jann Camargo, Rachel Kumar, Varun Madrid and colleagues, with an educational aron from [employer]. CHRISTIAN-7 Assessment Billing CHRISTIAN-7 Assessment Tool: CHRISTIAN-7 Assessment 24835 Review of Systems Const Details: Constitutional : No Weight loss, No Fever, No Chills, No Fatigue, No Malaise ENT/Mouth : No sore throat, No Rhinorrhea, No ear fullness. Eyes: No Eye Pain, No Swelling, No Redness Cardiovascular : No Chest Pain, No SOB, No Dyspnea on Exertion, No Orthopnea, No Edema, No Palpitations Respiratory : No Cough, No Sputum, No Wheezing Gastrointestinal : No Nausea, No Vomiting, No Diarrhea, No Constipation, No abdominal Pain, No Hematochezia, No Melena Genitourinary : No Dysuria, No Urinary Frequency, No Hematuria, Musculoskeletal : No joint pain, No Myalgias, No Joint Swelling Skin : Admits small pinprick at old I and D site that occasional still has pus. Neuro : No Weakness, No Numbness, No Dizziness, No Headache Psych : No Anxiety/Panic, No Depression Heme/Lymph: No Bruising, No Bleeding,No Lymphadenopathy Endocrine : No Polyuria, No Polydipsia All other systems reviewed and are negative Physical exam (Primary Care) Vital Signs: Last Vital Signs Pulse 91 04/24/23 10:04 BP 130/80 04/24/23 10:04 Pulse Ox 97 04/24/23 10:04 Care Plan Goal for BP management: Vital signs reviewed and stable. BMI result Body Mass Index 42.2 Tobacco/Smoking Status: Tobacco use Status Tobacco use date assessed 04/24/23 04/24/23 10:11 Patient Tobacco Use Status Never used Tobacco 04/24/23 10:06 e-Cigarette/Vaping Use Never Used 04/24/23 10:06 Depression Screening Interpretation: Negative Thrive Assessment: Date of Thrive Assessment Date Thrive assessed 10/28/20 04/24/23 10:06 Currently or been in a relationship where the following occur: no concerns reported Const General: cooperative and no acute distress Orientation/consciousness: patient oriented x3 Limitations: no limitations HENMT Head: Yes normal to inspection, Yes normocephalic and Yes atraumatic Ears: TM normal on the right and TM abnormal (Impacted cerumen of right ear pain) obstructed by cerumen General nose exam: Normal external nose present Face and sinus: Yes normal facial exam Mouth: Normal oral and palatal mucosa present Eyes General: appearance normal, both eyes and all related structures Pupils: Equal, round and reactive pupils present EOM: EOMs intact bilaterally Direct Ophthalmoscopy: normal light reflex, no photophobia and no papilledema Neck Neck: Yes normal visual inspection, Yes full ROM and Yes no lymphadenopathy Chest Chest palpation & inspection: normal inspection of the chest Resp Auscultation: clear to auscultation bilaterally Cardio Rate: regular rate Rhythm: regular rhythm Heart sounds: S1 normal heart sound present and S2 normal heart sound present Peripheral pulses: Peripheral pulses 2+ throughout GI Inspection: Yes normal to inspection Palpation (GI): Soft to palpation and nontender Auscultation: normal bowel sounds Rectal Exam - Female: deferred General: Yes no CVA tenderness Back/Spine/Pelvis Back: no CVA tenderness Thoracic/Lumbar Spine: lumbar spinal tenderness and straight leg raise positive right Skin Other: Small pinprick hole on left shoulder. No erythema or edema. No drainage. Scarring noted. General skin exam: other Neuro General: patient oriented x3 Cranial nerves: Yes CN's II-XII intact bilaterally, Yes Equal, round and reactive pupils present and Yes Bilaterally intact EOM present Cognition (Neuro): normal cognition Motor exam (neuro): 5/5 motor strength present throughout Deep tendon reflexes (DTR's): Right patellar reflex intensity grade: 2+ and Left patellar reflex intensity grade: 2+ Romberg Test: Negative Extrem General: Yes normal to inspection and Yes full ROM Psych Thought content: Normal thought content present Insight: Good insight present (Psych) Judgement: Good judgement present (Psych) Assessment and Plan Assessment & Plan (1) Encounter for routine adult physical exam with abnormal findings: Comment: Will draw fasting labs. Will refer to OBGYN for Pap smear, and for mammogram. Code(s): Z00.01 - Encounter for general adult medical examination with abnormal findings (2) Epidermoid cyst of skin of shoulder: Comment: Patient has small pinprick: Site of old incision and drainage of left shoulder cyst. The site has occasional purulent drainage, over the past year. Will refer to general surgery. Code(s): L72.0 - Epidermal cyst (3) Lumbar disc disease with radiculopathy: Comment: Patient is scheduled to have MRI. Seeing [facility] at [facility] [place] [facility]. Code(s): M51.16 - Intervertebral disc disorders with radiculopathy, lumbar region Plan: Take your medications as prescribed. If you were prescribed antibiotics today, it is important that you take your medication to their entirety, do not skip any doses, do not finish them early. Follow-up with your primary care provider this week. Return to the emergency department with new or worsening symptoms. Such as fevers, chills, chest pain, shortness of breath, nausea, vomiting, dizziness, headache, vision changes, lethargy In case of emergency call 911 ([phone]) Seasonal allergies: Comment: Patient occasionally takes [id number] Zyrtec during spring and summer seasons when she gardens. She states sometimes she gets wheezy, will prescribe albuterol inhaler. Code(s): J30.2 - Other seasonal allergic rhinitis Plan Will follow-up with lab results. Orders: Orders Complete Blood Count Auto Diff Today Z13.0 - Encounter for screening for diseases of the blood and blood-forming organs and certain disorders involving the immune mechanism Comprehensive [place]. Panel Fast Today I10 - Essential (primary) hypertension Vitamin B6 Today Z13.21 - Encounter for screening for nutritional disorder Vitamin B12 Today Z13.21 - Encounter for screening for nutritional disorder TSH reflex Free T4 Today Z13.29 - Encounter for screening for other suspected endocrine disorder Lipid Panel Today Z13.220 - Encounter for screening for lipoid disorders UA CC w/rflx Micro + Cult Today E86.0 - Dehydration Vitamin D 25-OH (D2 and D3) Today Z13.21 - Encounter for screening for nutritional disorder MM tomosynthesis screening BI Today Z12.31 - Encounter for screening mammogram for malignant neoplasm of breast Referrals SUPPLY CH[employer] PROJECT MANAGER Referral Z12.4 - Encounter for screening for malignant neoplasm of cervix General Surgery Referral L72.0 - Epidermal cyst Medications: New albuterol sulfate 90 mcg/actuation 2 puffs inhalation Q6H PRN 8.5 grams 0RF shortness of breath or wheezing Review Flu Vaccine not done: patient reason Coding Level of Care Code Est Pt Level 3 (28659) Diagnoses Encounter for routine adult physical exam with abnormal findings Z00.01 Epidermoid cyst of skin of shoulder L72.0 Lumbar disc disease with radiculopathy M51.16 Seasonal allergies J30.2 Additional Codes CHRISTIAN-7 Assessment Billing - CHRISTIAN-7 Assessment Tool: CHRISTIAN-7 Assessment 30521 ([id number]) Time Spent (min) 35
== END 2023-04-24 11:00 | disposition home or self-care (01) ==
PROVIDERS: PCP Internal Medicine; Visit Provider Nurse Practitioner Primary Care
DX: Z00.00 Encounter for general adult medical examination without abnormal findings (principal); L72.0 Epidermal cyst; M51.16 Intervertebral disc disorders with radiculopathy, lumbar region; J30.2 Other seasonal allergic rhinitis
CPT/HCPCS: 99396

== ENCOUNTER → 2023-05-06 11:00 | Outpatient (BNV) | payer OTHER, SELFPAY | PROVIDERS: PCP Internal Medicine; Visit Provider Radiology Diagnostic Radiology | DX: Z12.31 Encounter for screening mammogram for malignant neoplasm of breast (principal) | CPT/HCPCS: 77063; 77067 ==

== ENCOUNTER 2023-05-06 11:02 | Outpatient (REF) | payer OTHER, SELFPAY ==
--- NOTE | ~2023-05-06 | MM_ITS ---
EXAMINATION: MM SCREENING DIGITAL BREAST TOMOSYNTHESIS, BILATERAL CLINICAL INFORMATION: Screening. Asymptomatic. COMPARISON: Mammography: This study is compared with prior exams dating back to 2015. TECHNIQUE: Digital breast tomosynthesis is performed in both the craniocaudal and mediolateral oblique views along with computer-aided detection (CAD). Synthesized 2D images are generated from the tomosynthesis. FINDINGS: There are scattered areas of fibroglandular density (ACR BI-RADS breast composition Category b). There are no significant masses, abnormal calcifications, or other abnormalities. MM/MM tomosynthesis screening BI IMPRESSION: No mammographic evidence of malignancy. ASSESSMENT: BI-RADS BI-RADS 1 - Negative RECOMMENDATION: Routine annual mammography screening. 1 year F/U This examination should not preclude the clinical evaluation of a suspicious palpable abnormality. This patient's information was entered into a reminder system with a target due date for their next mammogram.
== END 2023-05-06 11:03 | disposition home or self-care (01) ==
LOC: HO.MAMMO 11:02
PROVIDERS: PCP Internal Medicine; Visit Provider Nurse Practitioner Primary Care
DX: Z12.31 Encounter for screening mammogram for malignant neoplasm of breast (principal)
CPT/HCPCS: 77063; 77067

== ENCOUNTER 2023-05-08 11:30 | Outpatient (AMB) | payer OTHER, SELFPAY ==
--- NOTE | 2023-05-08 11:31 | A.OFFVIS_ITS ---
Intake Vital Signs 05/08/23 11:33 Height 5 ft 2 in Weight 238 lb BMI 43.5 BP 130/80 Blood Pressure Location Lt brachial Position Sitting Pulse 88 Intake Visit Reasons: EIC~ Lt shoulder Intake Note: Patient referred by pcp Dr. Vang for cyst on Lt shoulder. Reports cyst was drained 1yr ago. Patient c/o: oozing unpleasant odor, prickly sensation at times. Denies pain. Athletic Coordinator Required: No Accompanied by: Spouse Allergies latex Allergy (Unknown, Verified 05/08/23 11:34) Rash, redness diphenhydramine [From Benadryl] Adverse Reaction (Unknown, Verified 05/08/23 11:34) Hypertension eggs white Adverse Reaction (Unknown, Uncoded 05/08/23 11:34) stomach upset Flu shot Adverse Reaction (Unknown, Uncoded 05/08/23 11:34) GI upset quinoa Adverse Reaction (Unknown, Uncoded 05/08/23 11:34) severe vomiting and diarrhea HPI HPI Comments History of Present Illness Details Patient presents with her significant other for evaluation of recurrent left shoulder sebaceous cyst. Approximately year and a half ago she had incision and drainage of this secondary to infection. She has had persistent symptoms and wishes to have the cyst excised. Chart was reviewed and patient evaluated. [facility] Medical History Lumbar disc disease with radiculopathy ADD (attention deficit disorder) Piriformis syndrome of both sides Inattention Hearing loss of both ears Bursitis of both hips Lumbago Obesity Dyslipidemia Vitamin D deficiency Surgical History No pertinent past surgical history Family History Mother Substance use disorder Mental health disorder Breast cancer, Onset Age: 45 Father HTN (hypertension) Dyslipidemia Substance use disorder Amyloidosis Maternal Grandfather Lung cancer Social History Housing: House Patient Tobacco Use Status: Never used Tobacco e-Cigarette/Vaping Use: Never Used Second Hand Smoke Exposure: No Current occupational status: unemployed 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 Assessment & Plan Assessment & Plan (1) Epidermoid cyst of skin of shoulder: Comment: Patient has small pinprick: Site of old incision and drainage of left shoulder cyst. The site has occasional purulent drainage, over the past year. Will refer to general surgery. Code(s): L72.0 - Epidermal cyst Plan Risks, benefits, alternatives of wide local excision of recurrent left shoulder sebaceous cyst were reviewed with the patient and included but not limited to bleeding, infection, recurrence, numbness, pain, scarring, seroma formation, wound dehiscence and the patient wishes to proceed. All questions answered. Arrangements made for this. Coding Level of Care Code New Pt Level 5 (14851) Diagnoses Epidermoid cyst of skin of shoulder L72.0
[2023-05-08 11:33] VITALS: BP 130/80; PULSE 88; BMI 43.5
== END 2023-05-08 11:56 | disposition home or self-care (01) ==
PROVIDERS: PCP Nurse Practitioner Primary Care; Referring Provider Nurse Practitioner Primary Care; Visit Provider Surgery
DX: L72.0 Epidermal cyst (principal)
CPT/HCPCS: 99204; 99214

== ENCOUNTER → 2023-05-08 11:30 | Outpatient (BNVA) | payer OTHER, SELFPAY | PROVIDERS: PCP Nurse Practitioner Primary Care; Referring Provider Nurse Practitioner Primary Care; Visit Provider Surgery | DX: L72.0 Epidermal cyst (principal) | CPT/HCPCS: 99202 ==

== ENCOUNTER 2023-05-17 13:05 | Outpatient (REF) | payer OTHER, SELFPAY ==
--- NOTE | ~2023-05-17 | XR_ITS ---
EXAMINATION: XR LUMBOSACRAL SPINE WITH OBLIQUES CLINICAL INFORMATION: Intervertebral disc disorders with a radiculopathy lumbar region. COMPARISON: MRI lumbar spine 04/23/2023. TECHNIQUE: 5 views of the lumbar spine including AP, lateral, flexion, extension and spot L5-S1 views. FINDINGS: Redemonstration of transitional anatomy. Visualization limited due to body habitus. 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 Degenerative changes in the imaged lower thoracic spine and bilateral sacroiliac joints. Radiodense device projecting over the pelvis partially imaged, possibly the IUD identified on CT abdomen and pelvis of 09/23/2022. Redemonstration of mild retrolisthesis of L4 on L5. Multilevel lumbar spondylosis with moderate loss of disc space height demonstrated at L4-L5. Facet arthritis in the lower lumbar spine. XR/XR lumbar spine 4V min IMPRESSION: 1. Redemonstration of transitional anatomy. 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 2. Multilevel lumbar spondylosis with moderate loss of disc space height demonstrated at L4-L5. 3. Facet arthritis in the lower lumbar spine.
== END 2023-05-17 13:06 | disposition home or self-care (01) ==
LOC: HO.XRAY 13:05
PROVIDERS: PCP Internal Medicine; Visit Provider Physician Assistant
DX: M51.16 Intervertebral disc disorders with radiculopathy, lumbar region (principal)
CPT/HCPCS: 72110

== ENCOUNTER 2023-06-13 08:31 | Day surgery (SDC) | payer OTHER, SELFPAY ==
[2023-06-11 09:08] VITALS: BMI 43.5
--- NOTE | 2023-06-12 10:18 | P.CONAN_ITS ---
Documented by User: Barbara Grier NP 06/12/23 10:18 HPI - Anesthesia Eval Consult details Narrative: 42yo F for Left Wide Local Excision Shoulder Recurrent Sebaceous Cyst PMFSH Active Problems Active Problems: All Active Problems (Updated 04/24/23 @ 11:25 by BERNARD Dixon) Seasonal allergies (Acute) Encounter for routine adult physical exam with abnormal findings (Acute) Epidermoid cyst of skin of shoulder (Acute) Hypertension (Acute) Lumbar disc disease with radiculopathy (Acute) ADD (attention deficit disorder) (Acute) Annual visit for general adult medical examination with abnormal findings (Acute) Hearing loss of both ears (Acute) Obesity (Acute) Dyslipidemia (Acute) Vitamin D deficiency (Acute) Past Medical History Medical History Lumbar disc disease with radiculopathy ADD (attention deficit disorder) Piriformis syndrome of both sides Inattention Hearing loss of both ears Bursitis of both hips Lumbago Obesity Dyslipidemia Vitamin D deficiency Family History Family History Mother Substance use disorder Mental health disorder Breast cancer, Onset Age: 45 Father HTN (hypertension) Dyslipidemia Substance use disorder Amyloidosis Maternal Grandfather Lung cancer Surgical History Surgical History History of surgery History of eye surgery [place] teeth removed No pertinent past surgical history Social History Social History Housing: House Patient Tobacco Use Status: Never used Tobacco e-Cigarette/Vaping Use: Never Used Second Hand Smoke Exposure: No Use of substances other than those prescribed or required for medical reasons: No Are you DNR?: No Advance Directives: No Advance Directives Information Provided: Yes Current occupational status: unemployed 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 Cognitive needs: No Hearing needs: No Vision needs: Yes Meds Allergies Allergy/AdvReac Type Severity Reaction Status Date / Time latex Allergy Unknown Rash, Verified 05/08/23 11:34 redness diphenhydramine AdvReac Unknown Hypertensio Verified 05/08/23 11:34 [From Benadryl] n eggs white AdvReac Unknown stomach Uncoded 05/08/23 11:34 upset Flu shot AdvReac Unknown GI upset Uncoded 05/08/23 11:34 quinoa AdvReac Unknown severe Uncoded 05/08/23 11:34 vomiting and diarrhea Home Medications Medication Instructions Recorded Confirmed Last Taken Type levonorgestrel 21 mcg/24 hours (8 intrauterine 10/28/20 04/24/23 Unknown History yrs) 52 mg intrauterine device (Mirena) Exam Height,Weight and Vital Signs: Height 5 ft 2 in Weight 107.955 kg Assessment and Plan Assessment Anesthesia Assessment: Chart Reviewed Documented by User: Magdalena Maya MD 06/13/23 09:55 PMFSH Past Medical History Medical History Lumbar disc disease with radiculopathy ADD (attention deficit disorder) Piriformis syndrome of both sides Inattention Hearing loss of both ears Bursitis of both hips Lumbago Obesity Dyslipidemia Vitamin D deficiency Family History Family History Mother Substance use disorder Mental health disorder Breast cancer, Onset Age: 45 Father HTN (hypertension) Dyslipidemia Substance use disorder Amyloidosis Maternal Grandfather Lung cancer Family history of problems with anesthesia: No Surgical History Surgical History History of surgery History of eye surgery [place] teeth removed No pertinent past surgical history History of Problems with Anesthesia: No Social History Social History Housing: House Patient Tobacco Use Status: Never used Tobacco e-Cigarette/Vaping Use: Never Used Second Hand Smoke Exposure: No Use of substances other than those prescribed or required for medical reasons: No Are you DNR?: No Advance Directives: No Advance Directives Information Provided: Yes Current occupational status: unemployed Current occupation: [employer] at home Cognitive needs: No Hearing needs: No Vision needs: Yes Meds Allergies Allergy/AdvReac Type Severity Reaction Status Date / Time latex Allergy Unknown Rash, Verified 05/08/23 11:34 redness diphenhydramine AdvReac Unknown Hypertensio Verified 05/08/23 11:34 [From Benadryl] n eggs white AdvReac Unknown stomach Uncoded 05/08/23 11:34 upset Flu shot AdvReac Unknown GI upset Uncoded 05/08/23 11:34 quinoa AdvReac Unknown severe Uncoded 05/08/23 11:34 vomiting and diarrhea Home Medications Medication Instructions Recorded Confirmed Last Taken Type levonorgestrel 21 mcg/24 hours (8 intrauterine 10/28/20 04/24/23 Unknown History yrs) 52 mg intrauterine device (Mirena) Exam Airway Mallampati Class: II TM Dist: >3cm Neck ROM: Full Heart: rrr Lungs: cta Assessment and Plan Assessment Anesthesia Assessment: Anesthesia Plan Discussed Final Anesthetic Review Family History of Problems with Anesthesia: No History of Problems with Anesthesia: No NPO: Yes ASA Class: III (htn, add, obesity) Final Preanesthetic Review: No Changes in Pt Med Stat, Meds/Allgs Chart Reviewed, Consent Obtained/Reviewed and Anes Risks/Benef Reviewed Patient Risk: Intermediate Procedure Risk: Low Anesthetic Plan Anesthetic Plan: MAC: Disposition: Standard PACU
--- NOTE | 2023-06-12 13:40 | MHC.SHP ---
Pre-Procedural Eval Section A - 24 Hr Update-Section A only Date of Service: 06/12/23 The patient is an INPATIENT: No Changes since office visit: No Cold of Flu in the past 2 weeks, No New Medical Problems, No Changes in Medication and No Patient answered all questions Section B - Complete if H&P > 30 days Chief Complaint: Epidermal cyst Allergies: Allergies Allergy/AdvReac Type Severity Reaction Status Date / Time latex Allergy Unknown Rash, Verified 05/08/23 11:34 redness diphenhydramine AdvReac Unknown Hypertensio Verified 05/08/23 11:34 [From Benadryl] n eggs white AdvReac Unknown stomach Uncoded 05/08/23 11:34 upset Flu shot AdvReac Unknown GI upset Uncoded 05/08/23 11:34 quinoa AdvReac Unknown severe Uncoded 05/08/23 11:34 vomiting and diarrhea Plan I have reviewed the history and physical and performed a pertinent physical examination on my patient. No changes have occurred unless specified. Time Spent With Patient Time: Total time managing care of this patient today ____ minutes.
[2023-06-13 08:57] VITALS: BMI 44.6
[2023-06-13 09:03] LABS: UPreg QC Valid YES; Urine Pregnancy NEGATIVE (NEGATIVE)
[2023-06-13 09:05] VITALS: BP 152/90; PULSE 90; RESP 16; TEMP 36.6; O2SAT 95
[2023-06-13] MEDS: Lactated Ringers 1,000 ML 100 ML IVCONT (09:21)
[2023-06-13 11:44] VITALS: BP 136/85; PULSE 90; RESP 14; TEMP 36.2; O2SAT 95
--- NOTE | 2023-06-13 11:46 | W.PM.OPN ---
Operative Note Operative Note Date of Service: 06/13/23 Narrative: Preoperative diagnosis: [] Recurrent left shoulder sebaceous cyst Postop diagnosis: [] The same Procedure [] wide local excision recurrent left shoulder sebaceous cyst Surgeon: [] [employer] Corporate Legal Intern: [] Bruna Type of Anesthesia: [] MAC Indication for surgery: [] Final specimen measured approximately 5 x 3 cm left shoulder recurrent sebaceous cyst Findings: [] Patient brought to the operating room, placed on operative table supine position, after adequate level of MAC anesthesia was induced, patient was placed in the right lateral decubitus position. Left shoulder was prepped and draped in usual sterile fashion. Using a transverse incision over the mass in question encompassing the prior scar from previous excision attempts, this carried down through skin, subcutaneous tissue, and undermined using Bovie. Specimen sent to pathology. Wounds was irrigated, secured hemostasis, and closed using interrupted inverted dermal 3-0 Vicryl sutures followed by Steri-Strips and sterile dressings. Sponge, needle, and instrument counts were reported correct. Patient tolerated procedure well and emerged from anesthesia stable condition. EBL minimal
[2023-06-13 12:08] VITALS: BP 141/78; PULSE 69; RESP 17; TEMP 36.1; O2SAT 95
== END 2023-06-13 12:44 | disposition home or self-care (01) ==
PROVIDERS: Nurse Practitioner; PCP Internal Medicine; Visit Provider Surgery
PROC: (CPT 11406; principal; 2023-06-13 09:50)
DX: L72.0 Epidermal cyst (principal); G57.03 Lesion of sciatic nerve, bilateral lower limbs; H91.93 Unspecified hearing loss, bilateral; F98.8 Other specified behavioral and emotional disorders with onset usually occurring in childhood and adolescence; E78.5 Hyperlipidemia, unspecified; E55.9 Vitamin D deficiency, unspecified; E66.9 Obesity, unspecified; Z68.41 Body mass index [BMI] 40.0-44.9, adult; Z88.8 Allergy status to other drugs, medicaments and biological substances; Z88.7 Allergy status to serum and vaccine; Z91.012 Allergy to eggs; Z91.040 Latex allergy status
CPT/HCPCS: 11406; 81025; 88304; J0131; J0690; J2250; J2704; J2795; J3010

== ENCOUNTER → 2023-06-13 08:31 | Outpatient (BNV) | payer OTHER, SELFPAY | PROVIDERS: PCP Internal Medicine; Visit Provider Surgery | DX: L72.0 Epidermal cyst (principal) | CPT/HCPCS: 11406 ==

== ENCOUNTER 2023-06-25 11:20 | Outpatient (AMB) | payer OTHER, SELFPAY ==
--- NOTE | 2023-06-25 11:24 | A.OFFVIS_ITS ---
Intake Vital Signs 06/25/23 11:25 Weight 239 lb BP 141/71 H Blood Pressure Location Rt brachial Position Sitting Pulse 97 Intake Visit Reasons: S/P WLE Lt shoulder sebaceous cyst Intake Note: Patient here s/p WLE Lt shoulder. Reports incision healing well. Patient c/o: dressing felt uncomfortable. Did not take rx pain meds. SX: 06-13-23. Manufacturing Baker Required: No Accompanied by: Self / Same As Patient Allergies latex Allergy (Unknown, Verified 06/25/23 11:) Rash, redness diphenhydramine [From Benadryl] Adverse Reaction (Unknown, Verified 06/25/23 11:26) Hypertension eggs white Adverse Reaction (Unknown, Uncoded 06/25/23 11:26) stomach upset Flu shot Adverse Reaction (Unknown, Uncoded 06/25/23 11:) GI upset quinoa Adverse Reaction (Unknown, Uncoded 06/25/23 11:) severe vomiting and diarrhea HPI HPI Comments History of Present Illness Details Patient presents for follow-up. She has no wound issues or complaints. Pathology is benign [facility] Medical History Lumbar disc disease with radiculopathy ADD (attention deficit disorder) Piriformis syndrome of both sides Inattention Hearing loss of both ears Bursitis of both hips Lumbago Obesity Dyslipidemia Vitamin D deficiency Surgical History Hx of surgical procedure (06/13/23) History of surgery History of eye surgery [place] teeth removed Family History Mother Substance use disorder Mental health disorder Breast cancer, Onset Age: 45 Father HTN (hypertension) Dyslipidemia Substance use disorder Amyloidosis Maternal Grandfather Lung cancer Social History Housing: House Comment: COUNTS CORRECT Patient Tobacco Use Status: Never used Tobacco e-Cigarette/Vaping Use: Never Used Second Hand Smoke Exposure: No Current occupational status: unemployed Current occupation: [employer] at home Cognitive needs: No Hearing needs: No Vision needs: Yes Physical Exam Vital Signs: Last Vital Signs Pulse 97 06/25/23 11:25 BP 141/71 H 06/25/23 11:25 Chest Other: Left shoulder wound is clean dry and intact healing very well Assessment & Plan Assessment & Plan (1) Postop check: Code(s): Z09 - Encounter for follow-up examination after completed treatment for conditions other than malignant neoplasm Plan Patient has been given local instructions including avoiding strenuous activities for next 2 weeks time, and will otherwise follow-up p.r.n.. All questions answered Coding Level of Care Code Global (78284) Diagnoses Postop check Z09
[2023-06-25 11:25] VITALS: BP 141/71; PULSE 97
== END 2023-06-25 11:27 | disposition home or self-care (01) ==
PROVIDERS: PCP Internal Medicine; Visit Provider Surgery
DX: Z09 Encounter for follow-up examination after completed treatment for conditions other than malignant neoplasm (principal)
CPT/HCPCS: 99024

== ENCOUNTER → 2023-06-25 11:20 | Outpatient (BNVA) | payer OTHER, SELFPAY | PROVIDERS: PCP Internal Medicine; Visit Provider Surgery | DX: Z09 Encounter for follow-up examination after completed treatment for conditions other than malignant neoplasm (principal); Z98.890 Other specified postprocedural states | CPT/HCPCS: 99212 ==

== ENCOUNTER 2023-07-10 09:27 | Outpatient (REF) | payer OTHER, SELFPAY ==
[2023-07-11 14:57] LABS: CT PCR NOT DETECTED (Not Detect.); NG PCR NOT DETECTED (Not Detect.)
[2023-07-12 12:17] LABS: BV Int Neg Control Negative (Negative); BV Int Pos Control Positive (Positive)
[2023-07-18 09:03] LABS: HPV mRNA E6/E7 rflx Not Detected (Not Detected)
== END 2023-07-10 09:28 | disposition home or self-care (01) ==
LOC: HO.LNP 09:27
PROVIDERS: PCP Internal Medicine; Visit Provider Advanced Practice Midwife
DX: Z01.419 Encounter for gynecological examination (general) (routine) without abnormal findings (principal); Z11.51 Encounter for screening for human papillomavirus (HPV); Z20.2 Contact with and (suspected) exposure to infections with a predominantly sexual mode of transmission
CPT/HCPCS: 0353U; 87480; 87510; 87624; 87660; 88142

== ENCOUNTER 2023-07-10 09:27 | Outpatient (AMB) | payer OTHER, SELFPAY ==
--- NOTE | 2023-07-10 09:29 | A.OFFVIS_ITS ---
Intake Vital Signs 07/10/23 09:30 Height 5 ft 2 in Weight 239 lb BMI 43.7 BP 126/82 Intake Visit Reasons: New patient Annual Intake Note: Needs to exchange her Mirena. Food Service Substitute Required: No Information Interpreted: non-clinical & clinical Beauty Culturist Apprentice: Beauty Culturist Apprentice Present (Aidyn) Allergies latex Allergy (Unknown, Verified 07/10/23 09:32) Rash, redness diphenhydramine [From Benadryl] Adverse Reaction (Unknown, Verified 07/10/23 09:32) Hypertension eggs white Adverse Reaction (Unknown, Uncoded 07/10/23 09:32) stomach upset Flu shot Adverse Reaction (Unknown, Uncoded 07/10/23 09:32) GI upset quinoa Adverse Reaction (Unknown, Uncoded 07/10/23 09:32) severe vomiting and diarrhea Medication List - Last Reconciled 07/10/23 by Eula De Paz CNM albuterol sulfate 90 mcg/actuation 2 puffs inhalation Q6H PRN ibuprofen 800 mg PO Q8H PRN levonorgestrel (Mirena) intrauterine Is last menstrual period known: No (no menses Mirena) Post menopausal: No HPI New patient Annual 2 HPI Details Here case worker visit. She came to the midwifery group in previous years she delivered her child at [facility] via a [place] practice with the product manager financial services and then she saw the midwives to the [facility] she had Mirena is since the of her child around 20 years ago and really likes it because of lack of menses and also for control her last 1 was replaced in 2017 and she would like this to be replaced when she can. She has a nurse practitioner through the [facility] in [place] and she is working on weight loss by adding salads to dinner and avoiding sweets and increasing her activity and she will be doing gardening because they grow their own vegetables and she is working on weight loss on her own she is not quite up to the point of seeking an intervention to help her with weight loss she still wants to try to do it on her she does notice that sometimes she does well for a while likes for bit so it is challenging she was diagnosed with ADHD a few years ago and says the diagnosis helps her in that she does not try to do things the way other people do them she tries to figure out how what she needs to do the help herself remember things etc.. She has back and hip and knee problems so she wants to lose weight for those reasons as well. She believes she is up-to-date on all of her annual visits and fasting blood work and she has had 3 mammograms in theyve all been normal. She does not get menses and also does not get regular symptoms that go along with menses and never has she had a history of irregular periods before the Mirena was placed. [facility] Medical History Lumbar disc disease with radiculopathy ADD (attention deficit disorder) Piriformis syndrome of both sides Inattention Hearing loss of both ears Bursitis of both hips Lumbago Obesity Dyslipidemia Vitamin D deficiency Surgical History Hx of surgical procedure (06/13/23) History of surgery History of eye surgery [place] teeth removed Family History Mother Substance use disorder Mental health disorder Breast cancer, Onset Age: 45 Father HTN (hypertension) Dyslipidemia Substance use disorder Amyloidosis Maternal Grandfather Lung cancer Social History Housing: House Comment: COUNTS CORRECT Patient Tobacco Use Status: Never used Tobacco e-Cigarette/Vaping Use: Never Used Second Hand Smoke Exposure: No Current occupational status: unemployed Current occupation: [employer] at home Cognitive needs: No Hearing needs: No Vision needs: Yes Female Reproductive History Menstrual Age of Menarche: 16 Duration of menses: other control method: progestin IUCD Total pregnancies: 1 Full term: 1 Number of Living Children: 1 Date of last pap smear: 09/17/16 (negative) History of abnormal pap smear: Yes (2012 2011 ASCUS) Date of Mammogram: 05/06/23 Physical Exam Vital Signs: Last Vital Signs BP 126/82 07/10/23 09:30 BMI result Body Mass Index 43.7 Const General: healthy appearing, comfortable, no acute distress, well developed and alert Nutritional Appearance: average body habitus Orientation/consciousness: patient oriented x3 Limitations: no limitations HEENT Head: Yes normocephalic Neck Neck: Yes normal visual inspection Chest Chest palpation & inspection: normal inspection of the chest Breast/axilla inspection: normal inspection of the breasts and normal inspection of the axillae Breast/axilla palpation: normal palpation of the breasts and normal palpation of the axillae Resp Effort & Inspection: normal respiratory effort GI Inspection: Yes normal to inspection, No Abdominal wall edema and No distended Palpation (GI): Soft to palpation and nontender Other: Normal case worker exam vagina pink normal scant mucus cervix multiparous Mirena string not visible it was able to be teased out of the os with Cytobrush after the Pap and cultures were done just to an eyelash length it does re-treat again. For replacement Ailyn forceps would be needed as well. Uterus small anteverted mobile nontender good tone with Kegel. General: Yes bladder normal to palpation External Female Exam: normal external appearance and normal appearance of the urethra Speculum Exam - Vagina: normal appearance of the vagina, normal palpation and normal vaginal discharge Speculum Exam - Cervix: normal appearance of the cervix, normal palpation and nontender Bimanual exam- vagina & uterus: normal bimanual exam, normal palpation, uterine size normal, bladder normal to palpation, consistency normal, normal palpation, uterine mobility normal, uterine shape normal, No Cervical tenderness present, non-tender and no cervical motion tenderness Bimanual Exam- Adnexa, other: normal adnexae, no masses, normal and No adnexal tenderness Neuro General: patient oriented x3 Assessment & Plan Assessment & Plan (1) Obesity: Code(s): E66.9 - Obesity, unspecified (2) Well woman exam with routine gynecological exam: Code(s): Z01.419 - Encounter for gynecological examination (general) (routine) without abnormal findings (3) Presence of 52 mg levonorgestrel-releasing intrauterine device (IUD): Code(s): Z97.5 - Presence of (intrauterine) contraceptive device (4) Cervical cancer screening: Code(s): Z12.4 - Encounter for screening for malignant neoplasm of cervix Plan -----Discussed in this visit the following: healthy balanced diet, regular and consistent exercise, getting recommended health screens, doing the best she can for her particular health concerns, kegel exercises, pap smear screening and followup recommendations, mammography screening and SBE, normal changes in cycles in her life stage--- .----I reviewed available options for Control Methods and their associated side effect profiles. In particular, we discussed the method most of interest to her. ---Discussed normal changes that happen premenapausally, perimenapausally, and postmenopausally, and ways to handle them. Discussed the normal variation, and the range of experiences that women experience. Discussed nutrition, health, n eed for exercise, both weight-bearing and aerobic. Also discussed the normal changes that happen with vaginal mucosal thinning and sensitivity, and simple more natural ways of handling these challenges. Discussed all of these issues in great detail would plan for Mirena replacement it may be challenging if this string is difficult to reach as it is today but we will do our best Ailyn forceps will probably be needed. Discussed backup control until it is were placed she is very clear she wants it replaced discussed her efforts at weight loss and the challenges involved in that and wished her all the best with that. Coding Level of Care Code New Pt Prev Care 40-64y(55119) Diagnoses Obesity E66.9 Well woman exam with routine gynecological exam Z01.419 Presence of 52 mg levonorgestrel-releasing intrauterine device (IUD) Z97.5 Cervical cancer screening Z12.4
[2023-07-10 09:30] VITALS: BP 126/82; BMI 43.7
== END 2023-07-10 10:45 | disposition home or self-care (01) ==
PROVIDERS: PCP Internal Medicine; Visit Provider Advanced Practice Midwife
DX: Z01.419 Encounter for gynecological examination (general) (routine) without abnormal findings (principal); E66.9 Obesity, unspecified; Z97.5 Presence of (intrauterine) contraceptive device; Z12.4 Encounter for screening for malignant neoplasm of cervix
CPT/HCPCS: 99386

== ENCOUNTER 2023-07-12 11:01 | Outpatient (AMB) | payer OTHER, SELFPAY ==
--- NOTE | 2023-07-12 11:23 | MHC.OFFVIS ---
Vital Signs 07/12/23 11:31 Height 5 ft 2 in Weight 239 lb BMI 43.7 BP 120/80 Intake Visit Reasons: Mirena Replacement Other Sales Support Worker Required: No Information Interpreted: non-clinical & clinical Quality Control Systems Manager: Quality Control Systems Manager Present (Philipp) Allergies latex Allergy (Unknown, Verified 07/12/23 11:31) Rash, redness diphenhydramine [From Benadryl] Adverse Reaction (Unknown, Verified 07/12/23 11:31) Hypertension eggs white Adverse Reaction (Unknown, Uncoded 07/12/23 11:31) stomach upset Flu shot Adverse Reaction (Unknown, Uncoded 07/12/23 11:31) GI upset quinoa Adverse Reaction (Unknown, Uncoded 07/12/23 11:31) severe vomiting and diarrhea Medication List - Last Reconciled 07/12/23 by Eula De Paz CNM albuterol sulfate 90 mcg/actuation 2 puffs inhalation Q6H PRN ibuprofen 800 mg PO Q8H PRN levonorgestrel (Mirena) intrauterine Is last menstrual period known: No Post menopausal: No Patient : No HPI HPI Mirena Replacement: Details: Is here for Mirena replacement was seen this week for an annual exam believes she has had this Mirena since 2017 remembers that it was switched out after previous 1 had been uncomfortable for her but she is used the Mirena 4 years since the of her youngest child. She is monogamous has no concerns about infections. She has no questions about the Mirena she likes it very much likes not having periods she does not get regular periods so we can not schedule it with her menses. At the previous visit this week the Mirena string was not easily visible but it was gently teased out to the length of an eyelash with the Cytobrush but it does retreat. [facility] Medical History Lumbar disc disease with radiculopathy ADD (attention deficit disorder) Piriformis syndrome of both sides Inattention Hearing loss of both ears Bursitis of both hips Lumbago Obesity Dyslipidemia Vitamin D deficiency Surgical History Hx of surgical procedure (06/13/23) History of surgery History of eye surgery [place] teeth removed Family History Mother Substance use disorder Mental health disorder Breast cancer, Onset Age: 45 Father HTN (hypertension) Dyslipidemia Substance use disorder Amyloidosis Maternal Grandfather Lung cancer Social History Housing: House Comment: COUNTS CORRECT Patient Tobacco Use Status: Never used Tobacco e-Cigarette/Vaping Use: Never Used Second Hand Smoke Exposure: No Current occupational status: unemployed Current occupation: [employer] at home Cognitive needs: No Hearing needs: No Vision needs: Yes Female Reproductive History Menstrual Age of Menarche: 16 control method: progestin IUCD Physical Exam Vital Signs: Last Vital Signs BP 120/80 07/12/23 11:31 BMI result Body Mass Index 43.7 Other: Normal multiparous cervix. Bimanual deferred as it was done earlier this week by this provider uterus was anteverted at the visit. The Mirena string was not visible but it was teased out of the cervix with use of a Cytobrush and then grasped with a long Ailyn forceps and removed please see the procedure section. External Female Exam: normal external appearance and normal appearance of the urethra Speculum Exam - Vagina: normal appearance of the vagina and normal vaginal discharge Speculum Exam - Cervix: normal appearance of the cervix and Cervical os closed Office Procedures IUD Insert/Removal Details Details: ---Patient is here for her IUD removal and insertion. Bimanual exam was done earlier this weeka at her annual exam by this provider. Her uterus is firm, nontender, and appropriate sized, and is anteverted . The strings are not immediately visible as was noted earlier in the week but were teased gently out of the os with a Cytobrush and then the edge of the strings were grasped in gradually length and with a Ailyn forceps. When 1 1.5 cm was visible a good grasp of strings with Kellys was obtained and and as patient coughed the IUD was removed easily with 1 tug. ---The cervix was cleaned with Betadine. Tenaculum was placed on the cervix slowly to minimize cramping. The uterus was sounded slowly and gently she show a measurement of 8 cm. The IUD was removed from its package, after checking identifying information and lot dates and expiration dates and and gently inserted into the os, as per the IUD insertion procedure. The strings were then trimmed to 3-4 centimetres. The tenaculum was removed and gentle pressure applied with a swab, until any bleeding subsided from the tenaculum sites. The speculum was gently removed. The patient sat up. I Reviewed what to expect, and what indications would necessitate a call. Pt to call for fever, untoward pain or cramping. I reviewed any appropriate backup method. Pt to return for recheck as scheduled. [id number] Insertion [id number] Removal Procedure code (CPT) selection complete Office Meds Mirena 21 mcg/24 hours (8 yrs) 52 mg intrauterine device Performing Provider: Eula De Paz CNM [facility] Administered by: YANETH Nation on 07/12/23 11:54 Dose Route Admin Location Dispensed Lot Number Expiration Date [facility] Promotions Specialist 1 device intrauterine [facility] device [id number] 07/12/23 50121-096-56 LYDIA,PHARM DIV Results AMB Test Urine AMB Test Urine Negative Last Edit by YANETH Nation on 07/12/23 11:57 Assessment & Plan Assessment & Plan (1) Presence of 52 mg levonorgestrel-releasing intrauterine device (IUD): Comment: old Mirena, reportedly inserted 2016, removed 07/12/23 and new 1 replaced, into 8 cm uterus and strings trimmed to 3 to 3.5 cm. Code(s): Z97.5 - Presence of (intrauterine) contraceptive device Category: Social Hx (2) Encounter for removal and reinsertion of intrauterine contraceptive device (IUD): Code(s): Z30.433 - Encounter for removal and reinsertion of intrauterine contraceptive device Category: Medical Plan See the procedure section reviewed all of the issues with the Mirena the patient is well-versed as this is her 3rd or 4th 1. Patient to call if she is having any difficulty whatsoever I gave her the strings so she can share with her partner with they feel like I trimmed them to 3 [address] I reviewed way do not trim them too short because they will shorten over time anyway, usually they curl around the cervix. The removal and insertion went very smoothly as noted. RTC 6 weeks. Orders: Orders AMB HCG Urine Test Today Z32.02 - Encounter for test, result negative AMB IUD Insertion/Removal - Practice Supplied Today Z30.430 - Encounter for insertion of intrauterine contraceptive device
[2023-07-12 11:31] VITALS: BP 120/80; BMI 43.7
== END 2023-07-12 11:57 | disposition home or self-care (01) ==
LOC: HO.HWSM 11:01
PROVIDERS: PCP Internal Medicine; Visit Provider Advanced Practice Midwife
DX: Z30.433 Encounter for removal and reinsertion of intrauterine contraceptive device (principal)
CPT/HCPCS: 58300; 58301

== ENCOUNTER → 2023-07-12 11:01 | Outpatient (BNVA) | payer OTHER, SELFPAY | PROVIDERS: PCP Internal Medicine; Visit Provider Advanced Practice Midwife | DX: Z30.433 Encounter for removal and reinsertion of intrauterine contraceptive device (principal); Z32.02 Encounter for pregnancy test, result negative | CPT/HCPCS: 58300; 58301; J7298 ==

== ENCOUNTER 2023-08-21 12:56 | Outpatient (AMB) | payer OTHER, SELFPAY ==
--- NOTE | 2023-08-21 12:59 | MHC.PC.OV ---
Vital Signs 08/21/23 13:01 Height 5 ft 2 in Weight 239 lb BMI 43.7 BP 144/100 H Blood Pressure Location Lt brachial Position Sitting Pulse 93 Pulse Source Pulse Oximeter Pulse Oximetry (%) 96 Oxygen Delivery Method Room Air Intake Visit Reasons: Swelling in knees, calves, and ankles Intake Note: Pt is here today c/o bilateral knees, calves and ankles swollen Allergies latex Allergy (Unknown, Verified 08/21/23 13:23) Rash, redness diphenhydramine [From Benadryl] Adverse Reaction (Unknown, Verified 08/21/23 13:23) Hypertension eggs white Adverse Reaction (Unknown, Uncoded 08/21/23 13:23) stomach upset Flu shot Adverse Reaction (Unknown, Uncoded 08/21/23 13:23) GI upset quinoa Adverse Reaction (Unknown, Uncoded 08/21/23 13:23) severe vomiting and diarrhea Medication List - Last Reconciled 08/21/23 by BERNARD Dixon albuterol sulfate 90 mcg/actuation 2 puffs inhalation Q6H PRN ibuprofen 800 mg PO Q8H PRN levonorgestrel (Mirena) intrauterine Tobacco use date assessed: 08/21/23 Dental Screening Dental Screen Date: 08/21/23 Did you have a dental visit in the last 12 months?: Yes Did you have a dental problem in the last 6 months where you did not have access to dental care?: No Was dental information given to patient?: Patient has dentist HPI HPI Comments History of Present Illness Details Patient is a 42-year-old female in today for sick visit. Patient reports swelling in the bilateral knees ankles and legs x 2 months. Patient does not have swelling at the appointment today however she did take a picture that revealed scant bilateral ankle edema. Patient reports this happens after an active day either gardening or walking. Patient denies pain. Denies starting any recent new medications. Denies erythema or discharge. Patient reports gaining about 50lbs over the past 5 years and thinks that her weight is a significant contributor to this. She would like referral to dietitian/learning center coordinator. She reports she was also recently diagnosed to [facility] [place] [facility] with ADHD. Patient would like to see therapy for this and believes that ADHD is getting the weight of her being able to set a routine for healthy eating. Will refer for therapist. [facility] Medical History Lumbar disc disease with radiculopathy ADD (attention deficit disorder) Piriformis syndrome of both sides Inattention Hearing loss of both ears Bursitis of both hips Lumbago Obesity Dyslipidemia Vitamin D deficiency Surgical History Hx of surgical procedure (06/13/23) History of surgery History of eye surgery [place] teeth removed Family History Mother Substance use disorder Mental health disorder Breast cancer, Onset Age: 45 Father HTN (hypertension) Dyslipidemia Substance use disorder Amyloidosis Maternal Grandfather Lung cancer Social History Housing: House Comment: COUNTS CORRECT Patient Tobacco Use Status: Never used Tobacco e-Cigarette/Vaping Use: Never Used Second Hand Smoke Exposure: No Current occupational status: unemployed Current occupation: [employer] at home Cognitive needs: No Hearing needs: No Vision needs: Yes Female Reproductive History Menstrual Age of Menarche: 16 Questionnaire Thrive Questionnaire Date Thrive assessed: 04/24/23 CHRISTIAN-7 AMB Questionnaire CHRISTIAN-7 Date CHRISTIAN - 7 assessed: 04/24/23 Source: Developed by Drs. Jann Camargo, Rachel Kumar, Varun Madrid and colleagues, with an educational aron from [employer] Review of Systems Const All systems reviewed & are unremarkable except as noted in HPI and below Physical exam (Primary Care) Vital Signs: Last Vital Signs Pulse 93 08/21/23 13:01 BP 144/100 H 08/21/23 13:01 Pulse Ox 96 08/21/23 13:01 Oxygen Delivery Method Room Air 08/21/23 13:01 Care Plan Goal for BP management: Patient will take blood pressure measurements at home. Next steps: Patient will follow-up in 2 weeks for blood pressure check in office BMI result Body Mass Index 43.7 Tobacco/Smoking Status: Tobacco use Status Tobacco use date assessed 08/21/23 08/21/23 13:04 Patient Tobacco Use Status Never used Tobacco 08/21/23 13:01 e-Cigarette/Vaping Use Never Used 08/21/23 13:01 Thrive Assessment: Date of Thrive Assessment Date Thrive assessed 04/24/23 08/21/23 13:01 Const Other: Appearance: Alert.? Oriented X3.? No acute distress.? Head: Normocephalic. ?Neck: Normal inspection.? Neck supple.? CVS: Normal heart rate and rhythm.? Pulses normal.? Respiratory: No respiratory distress.? Breath sounds normal.? Abdomen: Soft and nontender.? Skin: Skin warm and dry.? Normal skin color.? Normal skin turgor.? Extremities: No lower extremity edema.? No calf ttp. 5/5 strength to bilateral upper and lower extremities Neuro: Oriented X 3.? No motor deficit.? No sensory deficit. CN 2-12 intact Assessment and Plan Assessment & Plan (1) Localized swelling of both lower legs: Comment: Patient does not have edema of the lower extremities in office today. Patient does have picture showing that after an active day she does have scan swelling in the bilateral ankles. There is no erythema or redness. No pain. Will draw labs. Patient does not want vascular referral at this time BMI is likely contributing factor to ankle swelling. Patient will get referral for dietary/nutrition. Code(s): R22.43 - Localized swelling, mass and lump, lower limb, bilateral (2) Hypertension: Comment: Patient will return to office in 2 weeks to have blood pressure remeasured. Patient will also take measurements at home. Denies headaches or dizziness. Code(s): I10 - Essential (primary) hypertension Qualifiers: Hypertension type: unspecified Qualified Code(s): I10 - Essential (primary) hypertension (3) ADD (attention deficit disorder): Comment: Meeting with community relations specialist to find therapist for ADD diagnosis Code(s): F98.8 - Other specified behavioral and emotional disorders with onset usually occurring in childhood and adolescence Qualifiers: Hyperactivity presence: unspecified Qualified Code(s): F98.8 - Other specified behavioral and emotional disorders with onset usually occurring in childhood and adolescence Plan: Draw labs Plan Follow up after BP check. Orders: Orders B Type Natriuretic Peptide Today M79.89 - Other specified soft tissue disorders Referrals Ballistics Teacher Nutrition Referral E66.9 - Obesity, unspecified Coding Level of Care Code Est Pt Level 4 (02726) Diagnoses Localized swelling of both lower legs R22.43 Hypertension, unspecified type I10 Hypertension type: unspecified Attention deficit disorder, unspecified hyperactivity presence F98.8 Hyperactivity presence: unspecified Time Spent (min) 30
[2023-08-21 13:01] VITALS: BP 144/100; PULSE 93; O2SAT 96; BMI 43.7
== END 2023-08-21 13:57 | disposition home or self-care (01) ==
PROVIDERS: PCP Internal Medicine; Visit Provider Nurse Practitioner Primary Care
DX: R22.43 Localized swelling, mass and lump, lower limb, bilateral (principal); I10 Essential (primary) hypertension; F98.8 Other specified behavioral and emotional disorders with onset usually occurring in childhood and adolescence
CPT/HCPCS: 99214

== ENCOUNTER 2023-08-21 13:58 | Outpatient (REF) | payer OTHER, SELFPAY ==
[2023-08-21 16:26] LABS: MANUAL DIFF FLAG NO
[2023-08-21 16:53] LABS: Basophils Percent Auto 0.3 % (0-2); Eosinophils Absolute Auto 0.2 X10*3/uL (0.0-0.4); Eosinophils Percent Auto 1.4 % (0-4); Hematocrit 42.1 % (37.0-47.0); Hemoglobin 14.2 g/dl (12.0-16.0); Imm Gran Abs Auto 0.04 X10*3/uL (0.00-0.03); Imm Gran Pct Auto 0.4 % (0.0-0.4); Lymphocytes Absolute Auto 2.4 X10*3/uL (1.2-4.9); Lymphocytes Percent Auto 22.5 % (20-40); Mean Corpuscular HGB Conc 33.7 g/dl (31.0-35.0); Mean Corpuscular Hemoglobin 29.2 pg (27.0-33.0); Mean Corpuscular Volume 86.4 fL (80.0-98.0); Mean Platelet Volume 9.7 fL (9.4-12.3); Monocytes Absolute Auto 0.7 X10*3/uL (0.1-1.2); Neutrophils Absolute Auto 7.2 x10*3/uL (2.0-8.3); Neutrophils Percent Auto 68.4 % (45-73); Platelet Count 407 X10*3/uL (160-400); Red Blood Count 4.87 X10*6/uL (4.20-5.50); Red Cell Distribution Width 13.4 % (11.0-16.0); White Blood Count 10.5 X10*3/uL (4.8-10.8)
[2023-08-21 17:05] LABS: Appearance Urine Cloudy; Color Urine Yellow; Glucose Urine UA Negative (Negative); Leukocyte Esterase Urine Small (1+) (Negative); Nitrite Urine Negative (Negative); UMIC TRIGGER UACC YES; Urine Blood Small (1+) (Negative); Urine Ketones Negative (Negative); Urine Protein Negative (Neg-Trace)
[2023-08-21 17:14] LABS: Alanine Aminotransferase 25 U/L (0-31); Albumin Level 4.4 g/dL (3.5-5.0); Alkaline Phosphatase 91 U/L (39-117); Anion Gap 12 (12-20); Aspartate Amino Transferase 22 U/L (5-31); Bilirubin Total 0.3 mg/dL (0.0-1.0); Blood Urea Nitrogen 14 mg/dL (9-16); Calcium 9.4 mg/dL (8.4-10.2); Carbon Dioxide 24 mmol/L (22-29); Chloride 108 mmol/L (96-108); Estimated Glomerular Filt Rate > 60; Glucose Fasting 87 mg/dL (60-99); Potassium 3.9 mmol/L (3.3-5.1); Sodium 140 mmol/L (135-145); Total Protein 7.2 g/dL (6.5-8.0)
[2023-08-21 17:20] LABS: Bacteria Urine Trace (None Seen); Hyaline Casts Urine 0-2 /LPF (0-2); RBC Urine 0-2 /HPF (0-2); UACC Culture Trigger YES; WBC Urine 0-5 /HPF (0-5)
[2023-08-21 17:29] LABS: B Type Natriuretic Peptide < 10 pg/mL (<100); Vitamin B12 357 pg/mL (200-900)
[2023-08-21 17:30] LABS: TSH reflex Free T4 1.33 uIU/mL (0.32-4.0)
[2023-08-26 14:53] LABS: Vitamin D 25-OH, D2 <4 ng/mL; Vitamin D 25-OH, D3 26 ng/mL; Vitamin D 25-OH, Total 26 ng/mL (30-100)
[2023-08-29 15:42] LABS: Vitamin B6 7.5 ng/mL (2.1-21.7)
== END 2023-08-21 13:59 | disposition home or self-care (01) ==
LOC: HO.HMGCLDS 13:58
PROVIDERS: PCP Nurse Practitioner Primary Care; Visit Provider Nurse Practitioner Primary Care
DX: Z13.0 Encounter for screening for diseases of the blood and blood-forming organs and certain disorders involving the immune mechanism (principal); Z13.29 Encounter for screening for other suspected endocrine disorder; M79.89 Other specified soft tissue disorders; Z13.21 Encounter for screening for nutritional disorder; I10 Essential (primary) hypertension; R82.90 Unspecified abnormal findings in urine
CPT/HCPCS: 36415; 80053; 81001; 81003; 82306; 82607; 83880; 84207; 84443; 85025; 87086

== ENCOUNTER 2023-08-23 15:02 | Outpatient (AMB) | payer OTHER, SELFPAY ==
[2023-08-23 15:11] VITALS: BP 150/90; BMI 43.7
--- NOTE | 2023-08-23 15:11 | A.OFFVIS_ITS ---
Vital Signs 08/23/23 15:11 Height 5 ft 2 in Weight 239 lb BMI 43.7 BP 150/90 H Intake Visit Reasons: 6 week follow up Blocker Automatic Required: No Information Interpreted: non-clinical & clinical Case Supervisor: Case Supervisor Present (Philipp) Allergies latex Allergy (Unknown, Verified 08/23/23 15:16) Rash, redness diphenhydramine [From Benadryl] Adverse Reaction (Unknown, Verified 08/23/23 15:16) Hypertension eggs white Adverse Reaction (Unknown, Uncoded 08/23/23 15:16) stomach upset Flu shot Adverse Reaction (Unknown, Uncoded 08/23/23 15:16) GI upset quinoa Adverse Reaction (Unknown, Uncoded 08/23/23 15:16) severe vomiting and diarrhea Medication List - Last Reconciled 08/23/23 by Eula De Paz CNM albuterol sulfate 90 mcg/actuation 2 puffs inhalation Q6H PRN ibuprofen 800 mg PO Q8H PRN levonorgestrel (Mirena) intrauterine Is last menstrual period known: No Post menopausal: No HPI HPI 6 week follow up: Details: Patient is here to check on her new IUD she loves it she has not having any problems with it whatsoever. This is her 4th Mirena she does not get periods with them. [facility] Medical History Lumbar disc disease with radiculopathy ADD (attention deficit disorder) Piriformis syndrome of both sides Inattention Hearing loss of both ears Bursitis of both hips Lumbago Obesity Dyslipidemia Vitamin D deficiency Surgical History Hx of surgical procedure (06/13/23) History of surgery History of eye surgery [place] teeth removed Family History Mother Substance use disorder Mental health disorder Breast cancer, Onset Age: 45 Father HTN (hypertension) Dyslipidemia Substance use disorder Amyloidosis Maternal Grandfather Lung cancer Social History Housing: House Comment: COUNTS CORRECT Patient Tobacco Use Status: Never used Tobacco e-Cigarette/Vaping Use: Never Used Second Hand Smoke Exposure: No Current occupational status: unemployed Current occupation: [employer] at home Cognitive needs: No Hearing needs: No Vision needs: Yes Female Reproductive History Menstrual Age of Menarche: 16 control method: progestin IUCD Date of last pap smear: 07/12/23 (negative) Physical Exam Vital Signs: Last Vital Signs BP 150/90 H 08/23/23 15:11 BMI result Body Mass Index 43.7 Other: Normal vagina cervix multiparous with Mirena strings visible clear healthy appearing mucus. External Female Exam: normal external appearance and normal appearance of the urethra Speculum Exam - Vagina: normal appearance of the vagina and normal vaginal discharge Speculum Exam - Cervix: normal appearance of the cervix and Cervical os closed Assessment & Plan Assessment & Plan (1) Presence of 52 mg levonorgestrel-releasing intrauterine device (IUD): Comment: old Mirena, reportedly inserted 2016, removed 07/12/23 and new 1 replaced, into 8 cm uterus and strings trimmed to 3 to 3.5 cm. Code(s): Z97.5 - Presence of (intrauterine) contraceptive device Category: Social Hx Plan Reviewed patient's happiness with the new Mirena IUD.. She also questioned about yeast often showing up for her testing but she has no vaginal itching or abnormal discharge was other symptoms. Reviewed that yeast can be part of normal vaginal ryne and she does not to treated unless it is causing symptoms which it is not it is part of her normal biome. Coding Level of Care Code Est Pt Level 3 (69867) Diagnoses Presence of 52 mg levonorgestrel-releasing intrauterine device (IUD) Z97.5
== END 2023-08-23 15:40 | disposition home or self-care (01) ==
LOC: HO.HWSM 15:02
PROVIDERS: PCP Nurse Practitioner Primary Care; Visit Provider Advanced Practice Midwife
DX: Z97.5 Presence of (intrauterine) contraceptive device (principal)
CPT/HCPCS: 99213

== ENCOUNTER → 2023-08-23 15:02 | Outpatient (BNVA) | payer OTHER, SELFPAY | PROVIDERS: PCP Nurse Practitioner Primary Care; Visit Provider Advanced Practice Midwife | DX: Z97.5 Presence of (intrauterine) contraceptive device (principal) | CPT/HCPCS: 99212 ==

== ENCOUNTER 2023-09-05 10:57 | Outpatient (AMB) | payer OTHER, SELFPAY ==
--- NOTE | 2023-09-05 10:59 | A.OFFVIS_ITS ---
VS Expanded 09/05/23 11:02 09/05/23 11:15 Height 5 ft 2 in 5 ft 2 in Weight 238 lb 8.642 oz 238 lb BMI 43.6 43.5 Intake Visit Reasons: Obesity/CONFIRMED Allergies latex Allergy (Unknown, Verified 08/23/23 15:16) Rash, redness diphenhydramine [From Benadryl] Adverse Reaction (Unknown, Verified 08/23/23 15:16) Hypertension eggs white Adverse Reaction (Unknown, Uncoded 08/23/23 15:16) stomach upset Flu shot Adverse Reaction (Unknown, Uncoded 08/23/23 15:16) GI upset quinoa Adverse Reaction (Unknown, Uncoded 08/23/23 15:16) severe vomiting and diarrhea Nutrition Presentation Details: Pt presents for MNT for obesity. The Pt was referred by PCP, Haim Vang Pt reports gradual wt gain of > 50 lbs over 5 yr period, contributes it to lack of meal planning + eating out typical : coffee with 12 oz , cream/sugar 3pm: veg/grain/meat water , diet soda food frequency fruits: 1 /day vegetables: 2+daily dairy: 3 x/wk fish: not including (likes scallops) eating : 2 x/wk (varies: , Danish, Span ETOH: holiday smoking: none physical activity: started walking 30 min 3 times/wk BS Monitoring Most Recent Diabetes Results: Creatinine 0.93 mg/dL (0.5-1.4) 08/21/23 Blood Urea Nitrogen 14 mg/dL (9-16) 08/21/23 Sodium 140 mmol/L (135-145) 08/21/23 Potassium 3.9 mmol/L (3.3-5.1) 08/21/23 Chloride 108 mmol/L (96-108) 08/21/23 Carbon Dioxide 24 mmol/L (22-29) 08/21/23 Calcium 9.4 mg/dL (8.4-10.2) 08/21/23 AST 22 U/L (5-31) 08/21/23 ALT 25 U/L (0-31) 08/21/23 Total Protein 7.2 g/dL (6.5-8.0) 08/21/23 Albumin 4.4 g/dL (3.5-5.0) 08/21/23 SZO-Ikvsyfl-MqEmilia Equation Height: 5 ft 2 in Weight: 238 lb Resting Metabolic Rate: 1695.08 Calculated Activity Level: Sedentary Calories Needed to Maintain Weight: 2033. Diagnosis Nutrition problem #1: food nutri know defi As related to (etiology) #1: diagnosis As evidenced by (sign/symptom) #1: high BMI (43.6 (08/2023)) Monitoring/Goals Nutrition problem monitoring: level of knowledge/skill, total PRO intake, total CHO intake, weight and oral fluids Nutrition goal/outcome: wt loss 5lbs in 2 months Outcome progress: verbalized understanding Learning/Education Readiness to learn: good PFSH Medical History Lumbar disc disease with radiculopathy ADD (attention deficit disorder) Piriformis syndrome of both sides Inattention Hearing loss of both ears Bursitis of both hips Lumbago Obesity Dyslipidemia Vitamin D deficiency Surgical History Hx of surgical procedure (06/13/23) History of surgery History of eye surgery [place] teeth removed Family History Mother Substance use disorder Mental health disorder Breast cancer, Onset Age: 45 Father HTN (hypertension) Dyslipidemia Substance use disorder Amyloidosis Maternal Grandfather Lung cancer Social History Housing: House Comment: COUNTS CORRECT Patient Tobacco Use Status: Never used Tobacco e-Cigarette/Vaping Use: Never Used Second Hand Smoke Exposure: No Current occupational status: unemployed Current occupation: [employer] at home Cognitive needs: No Hearing needs: No Vision needs: Yes Female Reproductive History Menstrual Age of Menarche: 16 Assessment & Plan Assessment & Plan (1) Obesity: Code(s): E66.9 - Obesity, unspecified Category: Medical Plan: Wt: 108 Kg ( 09/15 ) Est kcal needs as per MSJ: 2000 (40% carb, 30% protein/fat) Est fluid needs as per 25-30 ml/d: 3200 Est prot per day as per 1 g/kg bw: 108 G Recommend fiber intake : 8-10 g per day and gradually increase to 25-28 g per day for women and 35-38 g for men or as tolerated Recommend sodium intake per day : less than 2000 mg Educated patient on: ( R = reviewed V = verbalizes understanding N/R = needs review N/A = not applicable * Food sources of carbohydrate, adequate serving sizes and its role in various health conditions: R * Differences between complex carbohydrates a simple carbohydrates, role of fiber in diet: R V N/R * Lean protein sources of foods: R * Differences between types of fats and role in diet (mono on saturated fat fatty acids, saturated fatty acids, trans fats): R V N/R * Food sources of sodium in salt and healthy modifications for heart health in kidney health: R V R/V * Vitamins and minerals: R V N/R * Healthy plate method concept: R * Physical activity: Benefits a precaution: R V N/R * Eating out: R * Patient Instructions: Reduce on total carbs to less than 60 g at meal following healthy plate method , work n having 3 meals/day keep reducing on sugar from beverages/pastries, added sugars keep a food log Coding Level of Care Code Nutr Indiv Intake (02656) Diagnoses Obesity E66.9 Time Spent (min) 30
[2023-09-05 11:02] VITALS: BMI 43.6
[2023-09-05 11:15] VITALS: BMI 43.5
== END 2023-09-05 11:42 | disposition home or self-care (01) ==
PROVIDERS: PCP Nurse Practitioner Primary Care; Visit Provider Dietitian, Registered
DX: E66.9 Obesity, unspecified (principal)

== ENCOUNTER → 2023-09-05 10:57 | Outpatient (BNVA) | payer OTHER, SELFPAY | PROVIDERS: PCP Nurse Practitioner Primary Care; Visit Provider Dietitian, Registered | DX: E66.9 Obesity, unspecified (principal); Z68.41 Body mass index [BMI] 40.0-44.9, adult | CPT/HCPCS: 97802 ==

== ENCOUNTER 2023-10-01 14:00 | Outpatient (RCR) | payer OTHER, SELFPAY ==
--- NOTE | 2023-08-09 11:11 | MHC.PT.EP ---
[facility] [place] Office [place] Office [place] Office [address] Zara Bender [address] [phone] F: [phone] F: [phone] F: [phone] F: [phone] Physical Therapy Plan of Care Date of Evaluation: 08/09/23 Date of Surgery: Diagnosis: This is a 42 yo female presenting to skilled PT with a script for episodic chronic low back pain. Assessment: This is a 42 yo female presenting to skilled PT with a script for episodic chronic low back pain. This patient is being referred from [facility]. Per Dr. Weldon's note from 04/05/23: intermittent but persistently worsening low back pain going down her right leg into her lateral thigh, lateral calf and the outer part of her foot. She has had this issue going back as far as 2009. Typically it will happen when she is bending forward she will get an intense pain in her back and this pain will shoot down her leg. Often leaves her incapacitated for days on end. It can be unpredictable, but when it does happen it is horrific pain. Through the years she is gone through numerous rounds of conservative treatment including physical therapy, medication trials like Motrin, Tylenol etc.. The symptoms are becoming more frequent. She recently had a flare-up in February after bending forward just to fix a sheet on her bed and she was down for at least a week. She has no symptoms on the left side. She has not yet had any cortisone injections or chiropractic treatments...I need a new MRI to assess whether or not it would benefit from surgery. I will also get flexion-extension x-rays to evaluate the integrity of the L4-5 disc in dynamic motion. Once the MRI and the x-ray complete I will see her back and reassess. Patient has had multiple sessions of PT for this in the past. She was last here for PT for low back pain in July 2021. DC note states: Pt demonstrates improved pain since beginning skilled PT. She is unfortunately still experiencing numbness and tingling in her foot that has not changed since start of care. She has made progress towards her goals but does still have some limitations with this numbness and tingling. She is scheduled for an EMG in September and I encouraged her to attend this appointment. If this does not show any findings she may benefit from further imaging of her back and understands to attend follow ups if this is the case. Pt encouraged to continue with her HEP to maintain all benefits made thus far. At this time max benefits of PT have been provided and skilled PT is no longer indicated at this time. Pt is in agreement with d/c today. Today at [facility] patient reporting this is her 5th time in PT now. Patient reports that she could be doing something very light (for instance bending over to reach her pillow) and gets excruciating pain (is laid up for weeks). Patient reports she has mild symptoms (R side low back, achy). She also reports some tightness throughout the buttocks and low back. She wants to be able to do her household activities and work out without pain or improve posture with these tasks. She has only followed up with the collection specialist on the phone and she is not a candidate for surgery. She states that she has minimal to no carryover with HEP after as she tends to hurt herself once again. She also reports that she has been trying to walk 30 mins a day. She has not tried any other conservative or medication tx's. She now only gets leg symptoms when her back is bad (numbness and tingling down the R LE). Assessment reveals pain that ranges from up to a 10/10 at the worst. Patient demos decreased lumbar, thoracic and BLE ROM, strength of back, core and gluts, TTP throughout lumbar and sacral soft tissues, some + pain patterns with SIJ involvement noted above and impaired posture with forward head, elevated R hip and rounded shoulders. Based on functional limitations, impaired QOL and pain tolerance patient is a good candidate for skilled PT 2x/wk for 4wks. Frequency and Duration: The patient will be seen 2x/wk for 4wks Short Term Goals: Pt will demonstrate centralization of sx in 2 weeks. Pt will continue to reinforce precautions, sitting, standing and ADL modifications with proper body mechanics in 2 wks. Pt will demonstrate ability to perform supine PPT with good TA recruitment in 2 weeks for improved core strength. Pt will demonstrate improved postural awareness and understanding of core engagement with progression into standing tasks without cues throughout session to improve overall back safety in 2 weeks. Custodial Goals: Pt will demonstrate improved outcome measure by 5 points in 4 weeks for improved functional mobility. Pt will demonstrate ability to bend and lift WNL min to no pain for household tasks in 4 wks. Pt will be I in HEP and compliant in 4wks Pt will improve hip and core strength by at least 1 MMT in 4 wks Treatment Plan: Modalities to reduce pain, spasms and effusion. Manual therapy to restore motion and function. Therapeutic exercise to improve strength and flexibility. Neuromuscular re-education for posture and balance. Therapeutic activities to return to functional activities of daily living. Electronically signed by: Idalmis Gongora, PT Please sign and return to therapist. Thank you for your referral.
--- NOTE | 2023-10-01 15:17 | MHC.PT.DC ---
[facility] [place] Office [place] Office [place] Office [address] Zara Bender [address] [phone] F: [phone] F: [phone] F: [phone] F: [phone] Physical Therapy Discharge Report Diagnosis: This is a 42 yo female presenting to skilled PT with a script for episodic chronic low back pain. Date of Surgery: Date of Evaluation: 08/09/23 Date of Discharge: 10/01/23 Treatments to Date: 12 Cancellations to Date: 0 No Shows to Date: 0 Discharge Status: Achieved Goals Improved Function Independent with HEP Insurance Declined Tx Discharge Summary: 09/30: Patient has come to 12 visits of PT through which the insurance approved. She has a sufficient HEP to continue on her own moving forward and understands the importance of core stab, safe and functional movement and how to manage her pain. She demos WFL lumbar strength and hip MMT. DC to HEP at this time due to insurance limitations. Electronically signed by: Idalmis Gongora, PT Please sign and return to therapist. Thank you for your referral.
== END 2023-10-01 15:17 | disposition home or self-care (01) ==
LOC: HO.PTCHIC 14:00
PROVIDERS: PCP Nurse Practitioner Primary Care; Visit Provider Physician Assistant
DX: M51.16 Intervertebral disc disorders with radiculopathy, lumbar region (principal)
CPT/HCPCS: 97110; 97162

== ENCOUNTER 2023-10-17 11:06 | Outpatient (AMB) | payer OTHER, SELFPAY ==
[2023-10-17 11:10] VITALS: BMI 43.1
--- NOTE | 2023-10-17 11:10 | A.OFFVIS_ITS ---
VS Expanded 10/17/23 11:10 Height 5 ft 2 in Weight 235 lb 7.259 oz BMI 43.1 Intake Visit Reasons: OBESITY/CONFIRMED Allergies latex Allergy (Unknown, Verified 08/23/23 15:16) Rash, redness diphenhydramine [From Benadryl] Adverse Reaction (Unknown, Verified 08/23/23 15:16) Hypertension eggs white Adverse Reaction (Unknown, Uncoded 08/23/23 15:16) stomach upset Flu shot Adverse Reaction (Unknown, Uncoded 08/23/23 15:16) GI upset quinoa Adverse Reaction (Unknown, Uncoded 08/23/23 15:16) severe vomiting and diarrhea Nutrition Presentation Details: Pt presents for MNT f/u for obesity Pt reports gradually making dietary modifications. Working on having 3 meals/day following healthy plate method water: 24- 40 oz/d fruits: 2-3 /d veg as snack BS Monitoring Most Recent Diabetes Results: Creatinine 0.93 mg/dL (0.5-1.4) 08/21/23 Blood Urea Nitrogen 14 mg/dL (9-16) 08/21/23 Sodium 140 mmol/L (135-145) 08/21/23 Potassium 3.9 mmol/L (3.3-5.1) 08/21/23 Chloride 108 mmol/L (96-108) 08/21/23 Carbon Dioxide 24 mmol/L (22-29) 08/21/23 Calcium 9.4 mg/dL (8.4-10.2) 08/21/23 AST 22 U/L (5-31) 08/21/23 ALT 25 U/L (0-31) 08/21/23 Total Protein 7.2 g/dL (6.5-8.0) 08/21/23 Albumin 4.4 g/dL (3.5-5.0) 08/21/23 [facility] Medical History (Updated 10/11/23 @ 14:41 by Alicja Tavares MD) Anxiety and depression PTSD (post-traumatic stress disorder) Lumbar disc disease with radiculopathy ADD (attention deficit disorder) Piriformis syndrome of both sides Inattention Hearing loss of both ears Bursitis of both hips Lumbago Obesity Dyslipidemia Vitamin D deficiency Surgical History Hx of surgical procedure (06/13/23) History of surgery History of eye surgery [place] teeth removed Family History Mother Substance use disorder Mental health disorder Breast cancer, Onset Age: 45 Father HTN (hypertension) Dyslipidemia Substance use disorder Amyloidosis Maternal Grandfather Lung cancer Social History Housing: House Comment: COUNTS CORRECT Patient Tobacco Use Status: Never used Tobacco e-Cigarette/Vaping Use: Never Used Second Hand Smoke Exposure: No Current occupational status: unemployed 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 Cognitive needs: No Hearing needs: No Vision needs: Yes Female Reproductive History Menstrual Age of Menarche: 16 Assessment & Plan Assessment & Plan (1) Obesity: Code(s): E66.9 - Obesity, unspecified Category: Medical Plan: Wt: 108 Kg ( 09/15 ), 107 kg (10/15) Est kcal needs as per MSJ: 2000 (40% carb, 30% protein/fat) Est fluid needs as per 25-30 ml/d: 3200 Est prot per day as per 1 g/kg bw: 108 G Recommend fiber intake : 8-10 g per day and gradually increase to 25-28 g per day for women and 35-38 g for men or as tolerated Recommend sodium intake per day : less than 2000 mg Educated patient on: ( R = reviewed V = verbalizes understanding N/R = needs review N/A = not applicable * Food sources of carbohydrate, adequate serving sizes and its role in various health conditions: R * Differences between complex carbohydrates a simple carbohydrates, role of fiber in diet: R V N/R * Lean protein sources of foods: R * Differences between types of fats and role in diet (mono on saturated fat fatty acids, saturated fatty acids, trans fats): R basic * Food sources of sodium in salt and healthy modifications for heart health in kidney health: R * Vitamins and minerals: R V N/R * Healthy plate method concept: R * Physical activity: Benefits a precaution: R V N/R * Eating out: R * Patient Instructions: Continue working on having 3 meals per day , have a meal replacement vs skipping a meal Include food sources of calcium in your diet (seeds, greens, dairy ) Coding Level of Care Code Nutr Indiv Subseq (65243) Diagnoses Obesity E66.9 Time Spent (min) 20
== END 2023-10-17 11:45 | disposition home or self-care (01) ==
PROVIDERS: PCP Nurse Practitioner Primary Care; Visit Provider Dietitian, Registered
DX: E66.9 Obesity, unspecified (principal)

== ENCOUNTER → 2023-10-17 11:06 | Outpatient (BNVA) | payer OTHER, SELFPAY | PROVIDERS: PCP Nurse Practitioner Primary Care; Visit Provider Dietitian, Registered | DX: E66.9 Obesity, unspecified (principal); E55.9 Vitamin D deficiency, unspecified; Z68.41 Body mass index [BMI] 40.0-44.9, adult; Z71.3 Dietary counseling and surveillance | CPT/HCPCS: 97803 ==

== ENCOUNTER 2023-11-28 11:30 | Outpatient (AMB) | payer OTHER, SELFPAY ==
[2023-11-28 11:33] VITALS: BMI 43.2
--- NOTE | 2023-11-28 11:33 | A.OFFVIS_ITS ---
VS Expanded 11/28/23 11:33 Height 5 ft 2 in Weight 236 lb 5.369 oz BMI 43.2 Intake Visit Reasons: Obesity/CONFIRMED Allergies latex Allergy (Unknown, Verified 08/23/23 15:16) Rash, redness diphenhydramine [From Benadryl] Adverse Reaction (Unknown, Verified 08/23/23 15:16) Hypertension eggs white Adverse Reaction (Unknown, Uncoded 08/23/23 15:16) stomach upset Flu shot Adverse Reaction (Unknown, Uncoded 08/23/23 15:16) GI upset quinoa Adverse Reaction (Unknown, Uncoded 08/23/23 15:16) severe vomiting and diarrhea Nutrition Presentation Details: Pt presents for MNT f/u for obesity Pt reports working on choosing nutrient dense foods challenges: working on scheduled meals and challenges with choosing foods when eating out BS Monitoring Most Recent Diabetes Results: Creatinine 0.93 mg/dL (0.5-1.4) 08/21/23 Blood Urea Nitrogen 14 mg/dL (9-16) 08/21/23 Sodium 140 mmol/L (135-145) 08/21/23 Potassium 3.9 mmol/L (3.3-5.1) 08/21/23 Chloride 108 mmol/L (96-108) 08/21/23 Carbon Dioxide 24 mmol/L (22-29) 08/21/23 Calcium 9.4 mg/dL (8.4-10.2) 08/21/23 AST 22 U/L (5-31) 08/21/23 ALT 25 U/L (0-31) 08/21/23 Total Protein 7.2 g/dL (6.5-8.0) 08/21/23 Albumin 4.4 g/dL (3.5-5.0) 08/21/23 [facility] Medical History (Updated 10/11/23 @ 14:41 by Alicja Tavares MD) Anxiety and depression PTSD (post-traumatic stress disorder) Lumbar disc disease with radiculopathy ADD (attention deficit disorder) Piriformis syndrome of both sides Inattention Hearing loss of both ears Bursitis of both hips Lumbago Obesity Dyslipidemia Vitamin D deficiency Surgical History Hx of surgical procedure (06/13/23) History of surgery History of eye surgery [place] teeth removed Family History Mother Substance use disorder Mental health disorder Breast cancer, Onset Age: 45 Father HTN (hypertension) Dyslipidemia Substance use disorder Amyloidosis Maternal Grandfather Lung cancer Social History Housing: House Comment: COUNTS CORRECT Patient Tobacco Use Status: Never used Tobacco e-Cigarette/Vaping Use: Never Used Second Hand Smoke Exposure: No Current occupational status: unemployed 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 Cognitive needs: No Hearing needs: No Vision needs: Yes Female Reproductive History Menstrual Age of Menarche: 16 Assessment & Plan Assessment & Plan (1) Obesity: Code(s): E66.9 - Obesity, unspecified Category: Medical Plan: Wt: 108 Kg ( 09/15 ), 107 kg (10/15), 12/16 Est kcal needs as per MSJ: 2000 (40% carb, 30% protein/fat) Est fluid needs as per 25-30 ml/d: 3200 Est prot per day as per 1 g/kg bw: 108 G Recommend fiber intake : 8-10 g per day and gradually increase to 25-28 g per day for women and 35-38 g for men or as tolerated Recommend sodium intake per day : less than 2000 mg Educated patient on: ( R = reviewed V = verbalizes understanding N/R = needs review N/A = not applicable * Food sources of carbohydrate, adequate serving sizes and its role in various health conditions: R * Differences between complex carbohydrates a simple carbohydrates, role of fiber in diet: R V N/R * Lean protein sources of foods: R * Differences between types of fats and role in diet (mono on saturated fat fatty acids, saturated fatty acids, trans fats): R basic * Food sources of sodium in salt and healthy modifications for heart health in kidney health: R * Vitamins and minerals: R V N/R * Healthy plate method concept: R * Physical activity: Benefits a precaution: R V N/R * Eating out: R * Patient Instructions: Work on meal prepa/ packing meals /snacks following healthy plate method Caution with high salt foods , sauces Coding Level of Care Code Nutr Indiv Subseq (25394) Diagnoses Obesity E66.9 Time Spent (min) 22
== END 2023-11-28 12:01 | disposition home or self-care (01) ==
PROVIDERS: PCP Nurse Practitioner Primary Care; Visit Provider Dietitian, Registered
DX: E66.9 Obesity, unspecified (principal)

== ENCOUNTER → 2023-11-28 11:30 | Outpatient (BNVA) | payer OTHER, SELFPAY | PROVIDERS: PCP Nurse Practitioner Primary Care; Visit Provider Dietitian, Registered | DX: E66.9 Obesity, unspecified (principal); Z71.3 Dietary counseling and surveillance; Z68.41 Body mass index [BMI] 40.0-44.9, adult | CPT/HCPCS: 97803 ==

== ENCOUNTER 2023-12-13 14:32 | Outpatient (AMB) | payer OTHER, SELFPAY ==
[2023-12-13 14:41] VITALS: BP 130/76; PULSE 80; O2SAT 98; BMI 43.5
--- NOTE | 2023-12-13 14:41 | MHC.PC.OV ---
Vital Signs 12/13/23 14:41 Height 5 ft 2 in Weight 238 lb BMI 43.5 BP 130/76 Blood Pressure Location Rt brachial Position Sitting Pulse 80 Pulse Source Pulse Oximeter Pulse Oximetry (%) 98 Oxygen Delivery Method Room Air Intake Visit Reasons: Dark spots~ Allergies latex Allergy (Unknown, Verified 12/13/23 14:42) Rash, redness diphenhydramine [From Benadryl] Adverse Reaction (Unknown, Verified 12/13/23 14:42) Hypertension eggs white Adverse Reaction (Unknown, Uncoded 08/23/23 15:16) stomach upset Flu shot Adverse Reaction (Unknown, Uncoded 08/23/23 15:16) GI upset quinoa Adverse Reaction (Unknown, Uncoded 08/23/23 15:16) severe vomiting and diarrhea Medication List - Last Reconciled 12/13/23 by Darrion Kendall MD albuterol sulfate 90 mcg/actuation 2 puffs inhalation Q6H PRN ibuprofen 800 mg PO Q8H PRN levonorgestrel (Mirena) intrauterine losartan 25 mg PO DAILY Tobacco use date assessed: 08/21/23 Dental Screening Dental Screen Date: 08/21/23 HPI Dark spots~ HPI Details Patient is a 43-year-old female came in today for establish care visit Patient has developed mole on her left cheek just under the eye 1 year ago And has noticed that it is getting bigger in changing in color and shape She is requesting a referral to Dermatology She also have history of hypertension, blood pressure is stable Patient is taking losartan 25 mg once a day, tolerating medications no side effects Labs were done July of this year, reviewed and new set of lab order placed to be done fasting BMI is elevated at 43.5 patient is morbidly obese need to lose weight we will talk about that at her upcoming visit in April [facility] Medical History Anxiety and depression PTSD (post-traumatic stress disorder) Lumbar disc disease with radiculopathy ADD (attention deficit disorder) Piriformis syndrome of both sides Inattention Hearing loss of both ears Bursitis of both hips Lumbago Obesity Dyslipidemia Vitamin D deficiency Surgical History Hx of surgical procedure (06/13/23) History of surgery History of eye surgery [place] teeth removed Family History Mother Substance use disorder Mental health disorder Breast cancer, Onset Age: 45 Father HTN (hypertension) Dyslipidemia Substance use disorder Amyloidosis Maternal Grandfather Lung cancer Social History Housing: House Comment: COUNTS CORRECT Patient Tobacco Use Status: Never used Tobacco e-Cigarette/Vaping Use: Never Used Second Hand Smoke Exposure: No Current occupational status: unemployed Current occupation: [employer] at home Cognitive needs: No Hearing needs: No Vision needs: Yes Female Reproductive History Menstrual Age of Menarche: 16 Questionnaire PHQ-9 Over the last 2 weeks, how often have you been bothered by any of the following problems? 1. Little interest or pleasure in doing things: more than half the days 2. Feeling down, depressed, or hopeless: several days 3. Trouble falling or staying asleep, or sleeping too much: nearly every day 4. Feeling tired or having little energy: nearly every day 5. Poor appetite or overeating: nearly every day 6. Feeling bad about yourself - or that you are a failure or have let yourself or your family down: not at all 7. Trouble concentrating on things, such as reading the newspaper or watching television: nearly every day 8. Moving or speaking so slowly that other people could have noticed. Or the opposite - being so fidgety or restless that you have been moving around a lot more than usual: not at all 9. Thoughts that you would be better off or of hurting yourself in some way: not at all Total score: 15 Depression Screening Interpretation: Positive Depression Screening Follow-up: Existing condition and Follow-up Visit Requested Depression Screening Done: Yes 53604 - PHQ-9 Billing: Yes Source: Developed by Drs. Jann Camargo, Rachel Kumar, Varun Madrid and colleagues, with an educational aron from [employer]. Thrive Questionnaire Date Thrive assessed: 12/13/23 I am a: Patient What is your living situation today?: I have a steady place to live Within the past 12 months, did the food you bought not last and you didn't have the money to get more?: Never true Within the past 12 months, did you worry whether your food would run out before you got money to buy more?: Never true Do you have trouble paying for medicines?: No Do you have trouble getting transportation to medical appointments?: No Do you have trouble paying your heating and electricity bill?: No Do you have trouble taking care of your child, family member or friend?: No Do you have trouble with day-to-day activities such as bathing, preparing meals, shopping, managing finances, etc.?: Yes Are you interested in more education?: No Please select the resources that you would like help with: None Currently or been in a relationship where the following occur: No concerns reported THRIVE Score: 0 AUDIT C Alcohol Use Questionnaire (AUDIT-C) 1. How often do you have a drink containing alcohol?: Monthly or less 2. How many drinks containing alcohol do you have on a typical day when you are drinking?: 1 or 2 3. How often do you have six or more drinks on one occasion?: Never Total Score: 1 Score Reviewed/Action Taken: Yes CHRISTIAN-7 AMB Questionnaire CHRISTIAN-7 Date CHRISTIAN - 7 assessed: 12/13/23 Feeling nervous, anxious, or on edge: 1 = Several days Not being able to stop or control worryin = More than half the days Worrying too much about different things: 1 = Several days Trouble relaxin = Nearly every day Being so restless that it is hard to sit still: 1 = Several days Becoming easily annoyed or irritable: 0 = Not at all Feeling afraid as if something awful might happen: 0 = Not at all Total CHRISTIAN-7 score (0-4 normal; 5-9 mild; 10-14 moderate; 15-21 severe): 8 Source: Developed by Drs. Jann Camargo, Rachel Kumar, Varun Madrid and colleagues, with an educational aron from [employer]. CHRISTIAN-7 Assessment Billing CHRISTIAN-7 Assessment Tool: CHRISTIAN-7 Assessment 56661 Review of Systems Const Denies chills and Denies fever(s) ENT Denies epistaxis and Denies nasal discharge Card Denies chest pain Resp Denies chest congestion, Denies cough and Denies hemoptysis GI Denies diarrhea and Denies nausea Skin/Breast Denies rash Neuro Reports no additional complaints Psych Reports no additional complaints Endo Reports no additional complaints Physical exam (Primary Care) Vital Signs: Last Vital Signs Pulse 80 12/13/23 14:41 BP 130/76 12/13/23 14:41 Pulse Ox 98 12/13/23 14:41 Oxygen Delivery Method Room Air 12/13/23 14:41 BMI result Body Mass Index 43.5 Tobacco/Smoking Status: Tobacco use Status Tobacco use date assessed 08/21/23 12/13/23 14:43 Patient Tobacco Use Status Never used Tobacco 12/13/23 14:43 e-Cigarette/Vaping Use Never Used 12/13/23 14:43 PHQ-9: PHQ-9 Score PHQ-9: Total score 15 12/13/23 14:43 Depression Screening Interpretation: Positive Depression Screening Follow-up: Existing condition and Follow-up Visit Requested Thrive Assessment: Date of Thrive Assessment Date Thrive assessed 12/13/23 12/13/23 14:43 Currently or been in a relationship where the following occur: No concerns reported Const General: cooperative, comfortable and no acute distress Orientation/consciousness: patient oriented x3 HENMT Head: Yes normocephalic Eyes General: appearance normal, both eyes and all related structures Neck Neck: Yes supple Resp Effort & Inspection: normal respiratory effort, no cough and no stridor Cardio Rhythm: regular rhythm Heart sounds: S1 normal heart sound present and S2 normal heart sound present Skin General skin exam: turgor normal Neuro General: patient oriented x3, tone normal and moves all extremities Extrem Right lower extremity: no edema Left lower extremity: no edema Assessment and Plan Assessment & Plan (1) Establishing care with new doctor, encounter for: Code(s): Z76.89 - Persons encountering health services in other specified circumstances (2) Change in facial mole: Code(s): D22.30 - Melanocytic nevi of unspecified part of face (3) Hypertension: Comment: Patient will return to office in 2 weeks to have blood pressure remeasured. Patient will also take measurements at home. Denies headaches or dizziness. Code(s): I10 - Essential (primary) hypertension Qualifiers: Hypertension type: unspecified Qualified Code(s): I10 - Essential (primary) hypertension (4) Dyslipidemia: Code(s): E78.5 - Hyperlipidemia, unspecified (5) Morbid obesity due to excess calories: Code(s): E66.01 - Morbid (severe) obesity due to excess calories Plan Patient is a 43-year-old female came in today for establish care visit Patient has developed mole on her left cheek just under the eye 1 year ago And has noticed that it is getting bigger in changing in color and shape She is requesting a referral to Dermatology She also have history of hypertension, blood pressure is stable Patient is taking losartan 25 mg once a day, tolerating medications no side effects Labs were done July of this year, reviewed and new set of lab order placed to be done fasting BMI is elevated at 43.5 patient is morbidly obese need to lose weight we will talk about that at her upcoming visit in April Orders: Orders Complete Blood Count Auto Diff Today D22.30 - Melanocytic nevi of unspecified part of face, E66.9 - Obesity, unspecified, E78.5 - Hyperlipidemia, unspecified, I10 - Essential (primary) hypertension, Z76.89 - Persons encountering health services in other specified circumstances Comprehensive [place]. Panel Fast Today D22.30 - Melanocytic nevi of unspecified part of face, E66.9 - Obesity, unspecified, E78.5 - Hyperlipidemia, unspecified, I10 - Essential (primary) hypertension, Z76.89 - Persons encountering health services in other specified circumstances TSH reflex Free T4 Today D22.30 - Melanocytic nevi of unspecified part of face, E66.9 - Obesity, unspecified, E78.5 - Hyperlipidemia, unspecified, I10 - Essential (primary) hypertension, Z76.89 - Persons encountering health services in other specified circumstances Lipid Panel Today D22.30 - Melanocytic nevi of unspecified part of face, E66.9 - Obesity, unspecified, E78.5 - Hyperlipidemia, unspecified, I10 - Essential (primary) hypertension, Z76.89 - Persons encountering health services in other specified circumstances Referrals Dermatology Referral D22.30 - Melanocytic nevi of unspecified part of face Coding Level of Care Code New Pt Level 3 (93144) Diagnoses Establishing care with new doctor, encounter for Z76.89 Change in facial mole D22.30 Hypertension, unspecified type I10 Hypertension type: unspecified Dyslipidemia E78.5 Morbid obesity due to excess calories E66.01 Additional Codes CHRISTIAN-7 Assessment Billing - CHRISTIAN-7 Assessment Tool: CHRISTIAN-7 Assessment [id number] ([id number])
== END 2023-12-13 15:30 | disposition home or self-care (01) ==
PROVIDERS: PCP Nurse Practitioner Primary Care; Visit Provider Internal Medicine
DX: I10 Essential (primary) hypertension (principal); E66.01 Morbid (severe) obesity due to excess calories; Z68.41 Body mass index [BMI] 40.0-44.9, adult; Z76.89 Persons encountering health services in other specified circumstances; D22.30 Melanocytic nevi of unspecified part of face; E78.5 Hyperlipidemia, unspecified

== ENCOUNTER → 2023-12-13 14:32 | Outpatient (BNVA) | payer OTHER, SELFPAY | PROVIDERS: PCP Nurse Practitioner Primary Care; Visit Provider Internal Medicine | DX: D22.30 Melanocytic nevi of unspecified part of face (principal); E78.5 Hyperlipidemia, unspecified; I10 Essential (primary) hypertension; E66.01 Morbid (severe) obesity due to excess calories; Z76.89 Persons encountering health services in other specified circumstances | CPT/HCPCS: 96127; 99202 ==

== ENCOUNTER 2024-01-01 09:13 | Outpatient (AMB) | payer OTHER, SELFPAY ==
--- NOTE | 2024-01-01 09:21 | A.OFFPC_ITS ---
Vital Signs 3 01/01/24 09:22 Height 5 ft 2 in Weight 240 lb 4 oz BMI 43.9 BP 132/80 Blood Pressure Location Rt brachial Position Sitting Pulse 101 H Pulse Source Pulse Oximeter Pulse Oximetry (%) 97 Oxygen Delivery Method Room Air Intake Visit Reasons: Back/Hip Flare Up Allergies latex Allergy (Unknown, Verified 01/01/24 09:24) Rash, redness diphenhydramine [From Benadryl] Adverse Reaction (Unknown, Verified 01/01/24 09:24) Hypertension eggs white Adverse Reaction (Unknown, Uncoded 08/23/23 15:16) stomach upset Flu shot Adverse Reaction (Unknown, Uncoded 08/23/23 15:16) GI upset quinoa Adverse Reaction (Unknown, Uncoded 08/23/23 15:16) severe vomiting and diarrhea Medication List - Last Reconciled 01/01/24 by Darrion Kendall MD albuterol sulfate 90 mcg/actuation 2 puffs inhalation Q6H PRN ibuprofen 800 mg PO Q8H PRN levonorgestrel (Mirena) intrauterine losartan 25 mg PO DAILY Tobacco use date assessed: 01/01/24 Dental Screening Dental Screen Date: 01/01/24 Did you have a dental visit in the last 12 months?: Yes Did you have a dental problem in the last 6 months where you did not have access to dental care?: No Was dental information given to patient?: Patient has dentist HPI Back/Hip Flare Up 2 HPI0 Details Patient is a 43-year-old female who travel to [place] this past weekend in car When she returned back she started having soreness in her lower back Patient says that pain is located lower back and both hip area She had leftover cyclobenzaprine and Celebrex she took that for a day And in the morning she felt slightly better She repeated the cyclobenzaprine again next day and then she stopped taking it She continued to have the stiffness and the soreness when she stands up from sitting position I see that she has had back x-ray 04/27/2023 which showed 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 Multilevel lumbar spondylosis with moderate loss of disc space height demonstrated at L4-L5. Facet arthritis in the lower lumbar spine. 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 [facility] Medical History Anxiety and depression PTSD (post-traumatic stress disorder) Lumbar disc disease with radiculopathy ADD (attention deficit disorder) Piriformis syndrome of both sides Inattention Hearing loss of both ears Bursitis of both hips Lumbago Obesity Dyslipidemia Vitamin D deficiency Surgical History Hx of surgical procedure (06/13/23) History of surgery History of eye surgery [place] teeth removed Family History Mother Substance use disorder Mental health disorder Breast cancer, Onset Age: 45 Father HTN (hypertension) Dyslipidemia Substance use disorder Amyloidosis Maternal Grandfather Lung cancer Social History Housing: House Comment: COUNTS CORRECT Patient Tobacco Use Status: Never used Tobacco e-Cigarette/Vaping Use: Never Used Second Hand Smoke Exposure: No Current occupational status: unemployed 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 Cognitive needs: No Hearing needs: No Vision needs: Yes Female Reproductive History Menstrual Age of Menarche: 16 Questionnaire Thrive Questionnaire Date Thrive assessed: 01/01/24 I am a: Patient What is your living situation today?: I have a steady place to live Within the past 12 months, did the food you bought not last and you didn't have the money to get more?: Never true Within the past 12 months, did you worry whether your food would run out before you got money to buy more?: Never true Do you have trouble paying for medicines?: No Do you have trouble getting transportation to medical appointments?: No Do you have trouble paying your heating and electricity bill?: No Do you have trouble taking care of your child, family member or friend?: No Do you have trouble with day-to-day activities such as bathing, preparing meals, shopping, managing finances, etc.?: Yes Are you currently unemployed and looking for a job?: No Are you interested in more education?: No Please select the resources that you would like help with: None Currently or been in a relationship where the following occur: No concerns reported THRIVE Score: 0 AUDIT C Alcohol Use Questionnaire (AUDIT-C) 1. How often do you have a drink containing alcohol?: Monthly or less 2. How many drinks containing alcohol do you have on a typical day when you are drinking?: 1 or 2 3. How often do you have six or more drinks on one occasion?: Never Total Score: 1 Score Reviewed/Action Taken: Yes CHRISTIAN-7 AMB Questionnaire CHRISTIAN-7 Date CHRISTIAN - 7 assessed: 12/13/23 Source: Developed by Drs. Jann Camargo, Rachel Kumar, Varun Madrid and colleagues, with an educational aron from [employer]. Review of Systems Const Denies chills and Denies fever(s) ENT Denies epistaxis and Denies nasal discharge Card Denies chest pain Resp Denies chest congestion, Denies cough and Denies hemoptysis GI Denies diarrhea and Denies nausea Skin/Breast Denies rash Neuro Reports no additional complaints Psych Reports no additional complaints Endo Reports no additional complaints Physical exam (Primary Care) Vital Signs: Last Vital Signs Pulse 101 H 01/01/24 09:22 BP 132/80 01/01/24 09:22 Pulse Ox 97 01/01/24 09:22 Oxygen Delivery Method Room Air 01/01/24 09:22 BMI result Body Mass Index 43.9 Tobacco/Smoking Status: Tobacco use Status Tobacco use date assessed 01/01/24 01/01/24 09:26 Patient Tobacco Use Status Never used Tobacco 01/01/24 09:26 e-Cigarette/Vaping Use Never Used 01/01/24 09:26 Thrive Assessment: Date of Thrive Assessment Date Thrive assessed 01/01/24 01/01/24 09:26 Currently or been in a relationship where the following occur: No concerns reported Const General: cooperative, comfortable and no acute distress Orientation/consciousness: patient oriented x3 HENMT Head: Yes normocephalic Eyes General: appearance normal, both eyes and all related structures Neck Neck: Yes supple Resp Effort & Inspection: normal respiratory effort, no cough and no stridor Cardio Rhythm: regular rhythm Heart sounds: S1 normal heart sound present and S2 normal heart sound present Back/Spine/Pelvis Back/spine/pelvis image: 2 1. Site of soreness but no pain with percussion, range of motion limited secondary to pain, straight leg negative bilateral Skin General skin exam: turgor normal Neuro General: patient oriented x3, tone normal and moves all extremities Extrem Right lower extremity: no edema Left lower extremity: no edema Coding Level of Care Code Est Pt Level 4 (33536) Diagnoses Exposure to COVID-19 virus Z20.822 Lumbar facet arthropathy M47.816 Spondylosis of lumbar region without myelopathy or radiculopathy M47.816 Spinal osteoarthritis complication: without myelopathy or radiculopathy Chronic bilateral low back pain without sciatica M54.50; G89.29 Back pain laterality: bilateral Sciatica presence: without sciatica Muscle soreness M79.10 Lumbar spondylosis M47.816 Assessment & Plan Assessment & Plan (1) Exposure to COVID-19 virus: Code(s): Z20.822 - Contact with and (suspected) exposure to COVID-19 Category: Medical (2) Lumbar facet arthropathy: Code(s): M47.816 - Spondylosis without myelopathy or radiculopathy, lumbar region Category: Medical (3) Degenerative joint disease (DJD) of lumbar spine: Code(s): M47.816 - Spondylosis without myelopathy or radiculopathy, lumbar region Category: Medical Qualifiers: Spinal osteoarthritis complication: without myelopathy or radiculopathy Qualified Code(s): M47.816 - Spondylosis without myelopathy or radiculopathy, lumbar region (4) Chronic lumbar pain: Code(s): M54.50 - Low back pain, unspecified; G89.29 - Other chronic pain Category: Medical Qualifiers: Back pain laterality: bilateral Sciatica presence: without sciatica Q ualified Code(s): M54.50 - Low back pain, unspecified; G89.29 - Other chronic pain (5) Muscle soreness: Code(s): M79.10 - Myalgia, unspecified site Category: Medical (6) Lumbar spondylosis: Code(s): M47.816 - Spondylosis without myelopathy or radiculopathy, lumbar region Category: Medical Plan Patient is a 43-year-old female who travel to [place] this past weekend in car When she returned back she started having soreness in her lower back Patient says that pain is located lower back and both hip area She had leftover cyclobenzaprine and Celebrex she took that for a day And in the morning she felt slightly better She repeated the cyclobenzaprine again next day and then she stopped taking it She continued to have the stiffness and the soreness when she stands up from sitting position I see that she has had back x-ray 04/27/2023 which showed 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 Multilevel lumbar spondylosis with moderate loss of disc space height demonstrated at L4-L5. Facet arthritis in the lower lumbar spine. 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 Orders: Orders 2 SARS COV2 IgG Today Z20.822 - Contact with and (suspected) exposure to COVID-19 Medications: New 2 celecoxib (Celebrex) 200 mg PO DAILY 30 caps 0RF Changed 2 From cyclobenzaprine 10 mg PO BID 7 days PRN 14 tabs 0RF muscle spasm M54.16 - Radiculopathy, lumbar region, M62.830 - Muscle spasm of back To cyclobenzaprine 10 mg PO BID 30 days PRN 60 tabs 0RF muscle spasm M54.16 - Radiculopathy, lumbar region, M62.830 - Muscle spasm of back Discontinued 2 ibuprofen Discontinued Reason: Doctor's Order 800 mg PO Q8H PRN 30 tabs 0RF pain
[2024-01-01 09:22] VITALS: BP 132/80; PULSE 101; O2SAT 97; BMI 43.9
== END 2024-01-01 10:02 | disposition home or self-care (01) ==
PROVIDERS: PCP Nurse Practitioner Primary Care; Visit Provider Internal Medicine
DX: Z20.822 Contact with and (suspected) exposure to COVID-19 (principal); M47.816 Spondylosis without myelopathy or radiculopathy, lumbar region; M54.50 Low back pain, unspecified; G89.29 Other chronic pain; M79.10 Myalgia, unspecified site

== ENCOUNTER 2024-01-01 09:13 | Outpatient (REF) | payer OTHER, SELFPAY ==
[2024-01-01 14:36] LABS: Influenza A PCR NEGATIVE (Negative); Influenza B PCR NEGATIVE (Negative); Resp Syncy Virus RNA Qual PCR NEGATIVE (Negative); SARS COV2 PCR INHOUSE NEGATIVE (Negative)
== END 2024-01-01 09:14 | disposition home or self-care (01) ==
LOC: HO.HMGCLNP 09:13
PROVIDERS: PCP Nurse Practitioner Primary Care; Visit Provider Internal Medicine
DX: M47.816 Spondylosis without myelopathy or radiculopathy, lumbar region (principal); R09.89 Other specified symptoms and signs involving the circulatory and respiratory systems; G89.29 Other chronic pain; M54.50 Low back pain, unspecified; M79.10 Myalgia, unspecified site; Z20.822 Contact with and (suspected) exposure to COVID-19
CPT/HCPCS: 0241U; 99212

== ENCOUNTER 2024-01-01 13:36 | Outpatient (REF) | payer OTHER, SELFPAY | END 2024-01-01 13:37 | disposition home or self-care (01) | LOC: HO.LNP 13:36 | PROVIDERS: Visit Provider Internal Medicine | DX: Z13.89 Encounter for screening for other disorder (principal) ==

== ENCOUNTER 2024-02-25 11:03 | Outpatient (AMB) | payer OTHER, SELFPAY ==
[2024-02-25 11:15] VITALS: BMI 44.0
--- NOTE | 2024-02-25 11:15 | A.OFFVIS_ITS ---
VS Expanded 02/25/24 11:15 Height 5 ft 2 in Weight 240 lb 11.916 oz BMI 44.0 Intake Visit Reasons: obesity Allergies latex Allergy (Unknown, Verified 01/01/24 09:) Rash, redness diphenhydramine [From Benadryl] Adverse Reaction (Unknown, Verified 01/01/24 09:) Hypertension eggs white Adverse Reaction (Unknown, Uncoded 08/23/23 15:16) stomach upset Flu shot Adverse Reaction (Unknown, Uncoded 08/23/23 15:16) GI upset quinoa Adverse Reaction (Unknown, Uncoded 08/23/23 15:16) severe vomiting and diarrhea Nutrition Presentation Details: Pt presents for MNT f/u for obesity Pt reports challenges with stress eating. Pt reports feeling well today, working with mental health care provider and wants to resume working on portion control. looking forward to joining the gym BS Monitoring Most Recent Diabetes Results: No Data to Display [facility] Medical History Anxiety and depression PTSD (post-traumatic stress disorder) Lumbar disc disease with radiculopathy ADD (attention deficit disorder) Piriformis syndrome of both sides Inattention Hearing loss of both ears Bursitis of both hips Lumbago Obesity Dyslipidemia Vitamin D deficiency Surgical History Hx of surgical procedure (06/13/23) History of surgery History of eye surgery [place] teeth removed Family History Mother Substance use disorder Mental health disorder Breast cancer, Onset Age: 45 Father HTN (hypertension) Dyslipidemia Substance use disorder Amyloidosis Maternal Grandfather Lung cancer Social History Housing: House Comment: COUNTS CORRECT Patient Tobacco Use Status: Never used Tobacco e-Cigarette/Vaping Use: Never Used Second Hand Smoke Exposure: No Current occupational status: unemployed 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 Cognitive needs: No Hearing needs: No Vision needs: Yes Female Reproductive History Menstrual Age of Menarche: 16 Assessment & Plan Assessment & Plan (1) Obesity: Code(s): E66.9 - Obesity, unspecified Category: Medical Plan: Wt: 108 Kg ( 09/15 ), 107 kg (10/15), 12/16, 109 kg (03/17) Est kcal needs as per MSJ: 2000 (40% carb, 30% protein/fat) Est fluid needs as per 25-30 ml/d: 3200 Est prot per day as per 1 g/kg bw: 108 G Recommend fiber intake : 8-10 g per day and gradually increase to 25-28 g per day for women and 35-38 g for men or as tolerated Recommend sodium intake per day : less than 2000 mg Educated patient on: ( R = reviewed V = verbalizes understanding N/R = needs review N/A = not applicable * Food sources of carbohydrate, adequate serving sizes and its role in various health conditions: R * Differences between complex carbohydrates a simple carbohydrates, role of fiber in diet: R * Lean protein sources of foods: R * Differences between types of fats and role in diet (mono on saturated fat fatty acids, saturated fatty acids, trans fats): R basic * Food sources of sodium in salt and healthy modifications for heart health in kidney health: R * Vitamins and minerals: R V N/R * Healthy plate method concept: R * Physical activity: Benefits a precaution: R * Eating out: R * Patient Instructions: Resume working on reduction and mindful eating Follow 2 vegetable and 1 protein meal pattern at least once a day Choose high fiber foods and increase water intake Coding Level of Care Code Nutr Indiv Subseq (79137) Diagnoses Obesity E66.9 Time Spent (min) 30
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
== END 2024-02-25 11:44 | disposition home or self-care (01) ==
PROVIDERS: PCP Internal Medicine; Visit Provider Dietitian, Registered
DX: E66.9 Obesity, unspecified (principal)

== ENCOUNTER → 2024-02-25 11:03 | Outpatient (BNVA) | payer OTHER, SELFPAY | PROVIDERS: PCP Internal Medicine; Visit Provider Dietitian, Registered | DX: E66.9 Obesity, unspecified (principal); Z71.3 Dietary counseling and surveillance; Z68.42 Body mass index [BMI] 45.0-49.9, adult | CPT/HCPCS: 97803 ==

== ENCOUNTER 2024-05-05 13:57 | Outpatient (AMB) | payer OTHER, SELFPAY ==
[2024-05-05 13:59] VITALS: BP 120/80; PULSE 101; TEMP 36.6; O2SAT 98; BMI 44.4
--- NOTE | 2024-05-05 13:59 | A.OFFPC_ITS ---
Vital Signs 05/05/24 13:59 Height 5 ft 2 in Weight 243 lb BMI 44.4 BP 120/80 Blood Pressure Location Rt brachial Position Sitting Pulse 101 H Pulse Source Pulse Oximeter Temp 97.9 F Temp Source Oral Pulse Oximetry (%) 98 Intake Visit Reasons: Transfer from [facility]/ Allergies latex Allergy (Unknown, Verified 05/05/24 13:59) Rash, redness diphenhydramine [From Benadryl] Adverse Reaction (Unknown, Verified 05/05/24 13:59) Hypertension eggs white Adverse Reaction (Unknown, Uncoded 08/23/23 15:16) stomach upset Flu shot Adverse Reaction (Unknown, Uncoded 08/23/23 15:16) GI upset quinoa Adverse Reaction (Unknown, Uncoded 08/23/23 15:16) severe vomiting and diarrhea Medication List - Last Reconciled 05/05/24 by Darrion Kendall MD albuterol sulfate 90 mcg/actuation 2 puffs inhalation Q6H PRN celecoxib (Celebrex) 200 mg PO DAILY cyclobenzaprine 10 mg PO BID PRN 30 days levonorgestrel (Mirena) intrauterine losartan 25 mg PO DAILY Tobacco use date assessed: 05/05/24 Dental Screening Dental Screen Date: 05/05/24 Did you have a dental visit in the last 12 months?: Yes Did you have a dental problem in the last 6 months where you did not have access to dental care?: No Was dental information given to patient?: Patient has dentist HPI Transfer from [facility] HPI Details Physical exam The patient is a 43-year-old female presenting with: - Chronic low back pain, managed with Celecoxib and Cyclobenzaprine as needed during flare-ups. - Hypertension controlled with Losartan 25 mg - Suspected plantar fasciitis, with pain predominantly in the right foot affecting physical activity levels. - Resolved sinusitis following a cold, w ith temporary urinary incontinence due to coughing. - Non-changing, benign-appearing skin le sions and past benign sebaceous cyst removal. Health Maintenance - Annual mammogram scheduled for next we ek; this will be her third since age 40. - Last OBGYN visit was in July of the pre vious year; next appointment scheduled for June. - Blood tests due to monitor impacts of Losartan on kidney function and electrolytes; advised every six months. - Patient was instructed to perform pelv ic floor exercises to strengthen pelvic muscles. - Tetanus vaccine was administered durin g the visit. - Flu vaccine not administered due to eg g allergy. Medications - Celecoxib for management of chronic lo w back pain. - Cyclobenzaprine taken as needed for mu scle spasms. - Losartan 25 mg daily for hypertension management. Patient Instructions - Continue taking Losartan daily and ens ure timely refill to prevent gaps in medication. - Schedule an appointment with podiatry for evaluation of foot pain and possible orthotic solutions. - Perform Kegel exercises regularly to s trengthen pelvic floor muscles. - Undergo fasting blood tests as ordered , prior to the next scheduled physical exam. - Return for physical exams every six mo nths with fasting labs as part of the visit. Review of Systems - General: No fever no chills - Neurological: No headaches no dizzin ess - Ear nose throat: No sore throat no hearing difficulty no ear pain - Cardiovascular: No syncope, no chest pain, no palpitations - Gastrointestinal: No nausea vomiting or diarrhea - Endocrine: No polyuria polydipsia no heat intolerance - Genitourinary: No dysuria - Skin: No new complaints Physical Exam General: Cooperative, healthy appearing, comfortable, no acute distress Orientation: Patient oriented x3 Head: Normal to inspection Ears: Within normal limit visually Nose: Normal external nose present Face and sinus: Normal facial exam Eyes: Appearance normal, extraocular movement intact pupils reactive Neck: Normal visual inspection and supple Respiratory: Normal respiratory effort and able to speak in complete sentences. Clear to auscultation, no stridor Breast exam through OBGYN Cardiovascular: S1 and S2 GI: Normal to inspection. Soft to palpation and nontender Skin: Turgor normal, no acute findings. Patient reports presence of benign- appearing lesions, no changes noted. Neuro: Patient oriented x3, motor sensory intact, balance intact, tandem pass Extremities: Normal to inspection. Patient reports foot pain, particularly in the right foot, exacerbated by physical activity. [facility] Medical History Anxiety and depression PTSD (post-traumatic stress disorder) Lumbar disc disease with radiculopathy ADD (attention deficit disorder) Piriformis syndrome of both sides Inattention Hearing loss of both ears Bursitis of both hips Lumbago Obesity Dyslipidemia Vitamin D deficiency Surgical History Hx of surgical procedure (06/13/23) History of surgery History of eye surgery [place] teeth removed Family History Mother Substance use disorder Mental health disorder Breast cancer, Onset Age: 45 Father HTN (hypertension) Dyslipidemia Substance use disorder Amyloidosis Maternal Grandfather Lung cancer Social History Housing: House Comment: COUNTS CORRECT Patient Tobacco Use Status: Never used Tobacco e-Cigarette/Vaping Use: Never Used Second Hand Smoke Exposure: No service: No Current occupational status: unemployed 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 1. Little interest or pleasure in doing things: several days 2. Feeling down, depressed, or hopeless: not at all 3. Trouble falling or staying asleep, or sleeping too much: nearly every day 4. Feeling tired or having little energy: nearly every day 5. Poor appetite or overeating: more than half the days 6. Feeling bad about yourself - or that you are a failure or have let yourself or your family down: not at all 7. Trouble concentrating on things, such as reading the newspaper or watching television: nearly every day 8. Moving or speaking so slowly that other people could have noticed. Or the opposite - being so fidgety or restless that you have been moving around a lot more than usual: nearly every day 9. Thoughts that you would be better off or of hurting yourself in some way: not at all Total score: 15 Depression Screening Interpretation: Positive Depression Screening Follow-up: Existing condition and Community Mental Health Worker F/U Depression Screening Done: Yes 24400 - PHQ-9 Billing: Yes Source: Developed by Drs. Jann Camargo, Rachel Kumar, Varun Madrid and colleagues, with an educational aron from [employer]. Thrive Questionnaire Date Thrive assessed: 05/05/24 I am a: Patient What is your living situation today?: I have a steady place to live Within the past 12 months, did the food you bought not last and you didn't have the money to get more?: Never true Within the past 12 months, did you worry whether your food would run out before you got money to buy more?: Never true Do you have trouble paying for medicines?: No Do you have trouble getting transportation to medical appointments?: No Do you have trouble paying your heating and electricity bill?: No Do you have trouble taking care of your child, family member or friend?: No Do you have trouble with day-to-day activities such as bathing, preparing meals, shopping, managing finances, etc.?: Yes Are you currently unemployed and looking for a job?: No Are you interested in more education?: No Please select the resources that you would like help with: None Currently or been in a relationship where the following occur: No concerns reported THRIVE Score: 0 AUDIT C Alcohol Use Questionnaire (AUDIT-C) 1. How often do you have a drink containing alcohol?: Monthly or less 2. How many drinks containing alcohol do you have on a typical day when you are drinking?: 1 or 2 3. How often do you have six or more drinks on one occasion?: Never Total Score: 1 Score Reviewed/Action Taken: Yes CHRISTIAN-7 AMB Questionnaire CHRISTIAN-7 Date CHRISTIAN - 7 assessed: 05/05/24 Feeling nervous, anxious, or on edge: 3 = Nearly every day Not being able to stop or control worryin = Nearly every day Worrying too much about different things: 3 = Nearly every day Trouble relaxin = Nearly every day Being so restless that it is hard to sit still: 3 = Nearly every day Becoming easily annoyed or irritable: 0 = Not at all Feeling afraid as if something awful might happen: 2 = More than half the days Total CHRISTIAN-7 score (0-4 normal; 5-9 mild; 10-14 moderate; 15-21 severe): 17 Source: Developed by Drs. Jann Camargo, Rachel Kumar, Varun Madrid and colleagues, with an educational aron from [employer] CHRISTIAN-7 Assessment Billing CHRISTIAN-7 Assessment Tool: CHRISTIAN-7 Assessment 51947 Physical exam (Primary Care) Vital Signs: Last Vital Signs Temp 97.9 F 05/05/24 13:59 Pulse 101 H 05/05/24 13:59 BP 120/80 05/05/24 13:59 Pulse Ox 98 05/05/24 13:59 BMI result Body Mass Index 44.4 Tobacco/Smoking Status: Tobacco use Status Tobacco use date assessed 05/05/24 05/05/24 14:00 Patient Tobacco Use Status Never used Tobacco 05/05/24 14:00 e-Cigarette/Vaping Use Never Used 05/05/24 14:00 PHQ-9: PHQ-9 Score PHQ-9: Total score 15 05/05/24 14:23 Depression Screening Interpretation: Positive Depression Screening Follow-up: Existing condition and Community Mental Health Worker F/U Thrive Assessment: Date of Thrive Assessment Date Thrive assessed 05/05/24 05/05/24 14:00 Currently or been in a relationship where the following occur: No concerns reported Immunizations Boostrix Tdap 2.5 Lf unit-8 mcg-5 Lf/0.5 mL intramuscular syringe Performing Provider: Darrion Kendall MD Performing Location: [facility] Administered by: Chino Persaud CMA on 05/05/24 14:23 Dose Route Admin Location Dispensed Lot Number Expiration Date NDC Sewer Separation [employer]er 0.5 mL IM Right Deltoid 0.5 mL [id number] 06/10/26 01036-076-72 [employer] VIS Given Date VIS Provided VIS Publication Date 05/05/24 Single Vaccine 20 Eligibility Eligibility Date Funding Source Not [facility] Eligible 05/05/24 Private Coding Level of Care Code Est Pt Level 4 (66080) Est Pt Prev Care 40-64y(53265) Diagnoses Encounter for general adult medical examination with abnormal findings Z00.01 Hypertension, essential I10 Bilateral foot pain M79.671; M79.672 Vitamin D deficiency E55.9 Lumbar disc disease with radiculopathy M51.16 Class 3 severe obesity due to excess calories with serious comorbidity and body mass index (BMI) of 40.0 to 44.9 in adult E66.813; E66.01; Z68.41 Body mass index: BMI 40.0-44.9 Obesity classification: adult class 3 (BMI >= 40) Serious obesity comorbidity presence: with serious comorbidity Lumbar paraspinal muscle spasm M62.830 Additional Codes CHRISTIAN-7 Assessment Billing - CHRISTIAN-7 Assessment Tool: CHRISTIAN-7 Assessment 05140 ([id number]) PHQ-9 - 70795 - PHQ-9 Billing: Yes ([id number]) Assessment & Plan Assessment & Plan (1) Encounter for general adult medical examination with abnormal findings: Code(s): Z00.01 - Encounter for general adult medical examination with abnormal findings Category: Medical (2) Hypertension, essential: Code(s): I10 - Essential (primary) hypertension Category: Medical (3) Bilateral foot pain: Code(s): M79.671 - Pain in right foot; M79.672 - Pain in left foot Category: Medical (4) Vitamin D deficiency: Code(s): E55.9 - Vitamin D deficiency, unspecified Category: Medical (5) Lumbar disc disease with radiculopathy: Comment: Patient is scheduled to have MRI. Seeing neuro [facility] at [facility]. Code(s): M51.16 - Intervertebral disc disorders with radiculopathy, lumbar region Category: Medical (6) Obesity due to excess calories: Code(s): E66.09 - Other obesity due to excess calories Category: Medical Qualifiers: Body mass index: BMI 40.0-44.9 Obesity classification: adult class 3 (BMI >= 40) Serious obesity comorbidity presence: with serious comorbidity Qualified Code(s): E66.813 - Obesity, class 3; E66.01 - Morbid (severe) obesity due to excess calories; Z68.41 - Body mass index [BMI] 40.0-44.9, adult (7) Lumbar paraspinal muscle spasm: Code(s): M62.830 - Muscle spasm of back Category: Medical Plan Physical exam The patient is a 43-year-old female presenting with: - Chronic low back pain, managed with Celecoxib and Cyclobenzaprine as needed during flare-ups. - Hypertension controlled with Losartan 25 mg - Suspected plantar fasciitis, with pain predominantly in the right foot affecting physical activity levels. - Resolved sinusitis following a cold, with temporary urinary incontinence due to coughing. - Non-changing, benign-appearing skin lesions and past benign sebaceous cyst removal. - depression screening positive with high score, message sent to behavior health coordinator to reach out to patient for assistance Health Maintenance - Annual mammogram scheduled for next week; this will be her third since age 40. - Last OBGYN visit was in July of the previous year; next appointment scheduled for June. - Blood tests due to monitor impacts of Losartan on kidney function and electrolytes; advised every six months. - Patient was instructed to perform pelvic floor exercises to strengthen pelvic muscles. - Tetanus vaccine was administered during the visit. - Flu vaccine not administered due to egg allergy. Medications - Celecoxib for management of chronic low back pain. - Cyclobenzaprine taken as needed for muscle spasms. - Losartan 25 mg daily for hypertension management. Patient Instructions - Continue taking Losartan daily and ensure timely refill to prevent gaps in medication. - Schedule an appointment with podiatry for evaluation of foot pain and possible orthotic solutions. - Perform Kegel exercises regularly to strengthen pelvic floor muscles. - Undergo fasting blood tests as ordered, prior to the next scheduled physical exam. - Return for physical exams every six months with fasting labs as part of the visit. Orders: Orders Lipid Panel Today E55.9 - Vitamin D deficiency, unspecified, E66.09 - Other obesity due to excess calories, I10 - Essential (primary) hypertension, M51.16 - Intervertebral disc disorders with radiculopathy, lumbar region, M62.830 - Muscle spasm of back, Z00.01 - Encounter for general adult medical examination with abnormal findings Vitamin D 25-OH (D2 and D3) Today E55.9 - Vitamin D deficiency, unspecified, E66.09 - Other obesity due to excess calories, I10 - Essential (primary) hypertension, M51.16 - Intervertebral disc disorders with radiculopathy, lumbar region, M62.830 - Muscle spasm of back, Z00.01 - Encounter for general adult medical examination with abnormal findings Comprehensive Met. Panel 6 Months E66.09 - Other obesity due to excess calories, I10 - Essential (primary) hypertension, M62.830 - Muscle spasm of back TDaP Immunization Today Z23 - Encounter for immunization Complete Blood Count Auto Diff Today E55.9 - Vitamin D deficiency, unspecified, E66.09 - Other obesity due to excess calories, I10 - Essential (primary) hypertension, M51.16 - Intervertebral disc disorders with radiculopathy, lumbar region, M62.830 - Muscle spasm of back, Z00.01 - Encounter for general adult medical examination with abnormal findings Comprehensive [place]. Panel Fast Today E55.9 - Vitamin D deficiency, unspecified, E66.09 - Other obesity due to excess calories, I10 - Essential (primary) hypertension, M51.16 - Intervertebral disc disorders with radiculopathy, lumbar region, M62.830 - Muscle spasm of back, Z00.01 - Encounter for general adult medical examination with abnormal findings TSH reflex Free T4 Today E55.9 - Vitamin D deficiency, unspecified, E66.09 - Other obesity due to excess calories, I10 - Essential (primary) hypertension, M51.16 - Intervertebral disc disorders with radiculopathy, lumbar region, M62.830 - Muscle spasm of back, Z00.01 - Encounter for general adult medical examination with abnormal findings Referrals Podiatry Referral M79.671 - Pain in right foot, M79.672 - Pain in left foot Medications: New Boostrix Tdap (diphth,pertus(acell),tetanus) 0.5 mL IM ONCE 0.5 mL 0RF NS Z23 - Encounter for immunization
--- OUTSIDE RECORDS SUMMARY | 2024-05-05 14:58 | XMS_ITS | Continuity of Care Document ---
Author Name [facility] Organization [facility] Care Team Providers Care Shredder Picker Name Role Phone [facility] Unavailable Unavailable Problems Combined list of problems from Department of Defense and Veterans Affairs facilities. It does not include entries that were removed or entered in error. Problem Status Onset Date Problem Type Date of Resolution Comments Source Diagnosis: ICD-10-CM F43.9 Reaction to severe stress, unspecified Active Diagnosis [place] Diagnosis: ICD-10-CM Z02.89 Encounter for other administrative examinations Active Diagnosis [facility] [place] [facility] Encounters Combined list of: 1) Encounters from Department of Veterans Affairs facilities going backup to the last 18 months, not all [place] inpatient encounters are included; 2) Encounters from the Department of [facility] facilities going backup to 280 months. Location Location Details Encounter Type Encounter Number Reason For Visit Attending Provider ADM Date DC Date Status Disposition Source [place] [facility] [facility] Outpatient Encounter [id number] Diagnos is: ICD-10- CM Z02.89 Encount er for other adminis trative examina tions FRANCESCA ISLAS 02/28 [place] [facility] [facility] [place] [facility] Outpatient Encounter [id number] FRANCESCA ISLAS 02/28 [place] [facility] [place] PSYTX W PT 45 MINUTES [id number] Diagnos is: ICD-10- CM F43.9 Reactio n to severe stress, unspeci DAV Uriostegui I 03/11 [facility] Social History Combined list of available smoking, tobacco, and other social history from Department of Defense and Veterans Affairs facilities. Social History Type Response Date Comment Sour e This section is an empty social history section. DoD
== END 2024-05-05 14:32 | disposition home or self-care (01) ==
PROVIDERS: PCP Nurse Practitioner Primary Care; Visit Provider Internal Medicine
DX: Z00.00 Encounter for general adult medical examination without abnormal findings (principal); M79.671 Pain in right foot; M79.672 Pain in left foot; E66.01 Morbid (severe) obesity due to excess calories; Z68.41 Body mass index [BMI] 40.0-44.9, adult; I10 Essential (primary) hypertension; E55.9 Vitamin D deficiency, unspecified; M51.16 Intervertebral disc disorders with radiculopathy, lumbar region; M62.830 Muscle spasm of back; Z23 Encounter for immunization

== ENCOUNTER → 2024-05-05 13:57 | Outpatient (BNVA) | payer OTHER, SELFPAY | PROVIDERS: PCP Nurse Practitioner Primary Care; Visit Provider Internal Medicine | DX: Z00.01 Encounter for general adult medical examination with abnormal findings (principal); Z23 Encounter for immunization; I10 Essential (primary) hypertension; M79.671 Pain in right foot; M79.672 Pain in left foot; E55.9 Vitamin D deficiency, unspecified; M51.16 Intervertebral disc disorders with radiculopathy, lumbar region; E66.813 Obesity, class 3; Z68.41 Body mass index [BMI] 40.0-44.9, adult; M62.830 Muscle spasm of back; Z71.3 Dietary counseling and surveillance | CPT/HCPCS: 90471; 90715; 96127; 99212 ==

== ENCOUNTER 2024-06-18 15:17 | Outpatient (REF) | payer OTHER, SELFPAY ==
--- OUTSIDE RECORDS SUMMARY | 2024-06-18 18:55 | XMS_ITS | Clinical Summary ---
Author Organization [address] [place] [address] Address [address] [place] [address] Phone Care Team Providers Care Screening Nurse Name Role Phone Darrion Kendall MD Primary Care Provider [phone] Social History Tobacco Use Types Packs/Day Years Used Date Smoking Tobacco: Never Assessed Comments Unknown Sex and Gender Information Value Date Recorded Sex Assigned at Not on file Legal Sex Female 2:59 PM EST Gender Identity Not on file Sexual Orientation Not on file Plan of Treatment Upcoming Encounters Date Type Department Care Team ([facility] Contact Info) Description 07/21/2024 10:15 AM EDT Consult Orthopedic Surgery - [place] [id number] [phone] Reece Lopez DPM [address] [address] Health Maintenance Due Date Last Done Comments Breast Cancer Screening 1980 DTaP,Tdap,and Td Vaccines (1 - Tdap) 11/05/1999 Hepatitis B Vaccines (1 of 3 - 19+ 3-dose series) 11/05/1999 Cervical Cancer Screening: P ap Smear 2001 COVID-19 Vaccine ( - 2023-2 5 season) 2023 Influenza Vaccine (#1) 2023 Depression Screening 05/19/2024 HIV Screening 05/19/2024 Hepatitis C Screening 05/19/2024 Social Influencers of Health Screening 05/19/2024 HIB Vaccines Aged Out No longer eligi ble based on patient's age to complete this topic HPV Vaccines Aged Out No longer eligi ble based on patient's age to complete this topic Hepatitis A Vaccines Aged Out No long er eligible based on patient's age to complete this topic IPV Vaccines Aged Out No longer eligi ble based on patient's age to complete this topic MMR Vaccines Aged Out No longer eligi ble based on patient's age to complete this topic Meningococcal ACWY Vaccine Aged Out N o longer eligible based on patient's age to complete this topic Meningococcal B Vacine Aged Out No lo nger eligible based on patient's age to complete this topic Pneumococcal Vaccine: Pediat rics (0 to 5 Years) and At-Risk Patients (6 to 64 Years) Aged Out No longer eligible b ased on patient's age to complete this topic RSV Immunization Patients Un prosper 20 months Aged Out No longer eligible b ased on patient's age to complete this topic Varicella Vaccines Aged Out No longer eligible based on patient's age to complete this topic Insurance [employer] Care Teams Screening Nurse Relationship Specialty Start Date End Date Darrion Kendall MD [address] [place] [address] PCP - General Internal Medicine 05/18/24
--- OUTSIDE RECORDS SUMMARY | 2024-06-18 18:55 | XMS_ITS | Continuity of Care Document ---
Author Name [facility] Organization [facility] Care Team Providers Care Income Tax Adjuster Name Role Phone [facility] Unavailable Unavailable Problems Combined list of problems from Department of Defense and Veterans Affairs facilities. It does not include entries that were removed or entered in error. Problem Status Onset Date Problem Type Date of Resolution Comments Source Diagnosis: ICD-10-CM F43.9 Reaction to severe stress, unspecified Active Diagnosis [place] Diagnosis: ICD-10-CM Z02.89 Encounter for other administrative examinations Active Diagnosis [place] [facility] [place] [place] [facility] Encounters Combined list of: 1) Encounters from Department of Veterans Affairs facilities going backup to the last 18 months, not all [place] inpatient encounters are included; 2) Encounters from the Department of [facility] facilities going backup to 280 months. Location Location Details Encounter Type Encounter Number Reason For Visit Attending Provider ADM Date DC Date Status Disposition Source [place] [facility] [place] [facility] Outpatient Encounter [id number] Diagnos is: ICD-10- CM Z02.89 Encount er for other adminis trative examina tions FRANCESCA ISLAS 02/28 [place] [facility] [place] [facility] Outpatient Encounter [id number] FRANCESCA ISLAS 02/28 [place] [facility] [place] [facility] [place] PSYTX W PT 45 MINUTES [id number] Diagnos is: ICD-10- CM F43.9 Reactio n to severe stress, unspeci DAV Uriostegui I 03/11 [facility]
== END 2024-06-18 15:18 | disposition home or self-care (01) ==
LOC: HO.MAMMO 15:17
PROVIDERS: PCP Internal Medicine; Visit Provider Internal Medicine
DX: Z12.31 Encounter for screening mammogram for malignant neoplasm of breast (principal)
CPT/HCPCS: 77063; 77067

== ENCOUNTER → 2024-06-18 15:30 | Outpatient (BNV) | payer OTHER, SELFPAY | PROVIDERS: PCP Internal Medicine; Visit Provider Internal Medicine | DX: Z12.31 Encounter for screening mammogram for malignant neoplasm of breast (principal) | CPT/HCPCS: 77063; 77067 ==

== ENCOUNTER 2024-07-14 13:12 | Outpatient (AMB) | payer OTHER, SELFPAY ==
[2024-07-14 13:29] VITALS: BP 118/70; BMI 45.0
--- NOTE | 2024-07-14 13:29 | A.OFFVIS_ITS ---
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 Banding Machine Operator Required: No Banding Machine Operator Services: Banding Machine Operator Present Information Interpreted: clinical only Fruit Or Nut Grower: Fruit Or Nut Grower Present Allergies latex Allergy (Unknown, Verified 07/14/24 13:30) Rash, redness diphenhydramine [From Benadryl] Adverse Reaction (Unknown, Verified 07/14/24 13:30) Hypertension eggs white Adverse Reaction (Unknown, Uncoded 07/14/24 13:30) stomach upset Flu shot Adverse Reaction (Unknown, Uncoded 07/14/24 13:30) GI upset quinoa Adverse Reaction (Unknown, Uncoded 07/14/24 13:30) severe vomiting and diarrhea Medication List - Last Reconciled 07/14/24 by Eula De Paz CNM albuterol sulfate 90 mcg/actuation 2 puffs inhalation Q6H PRN celecoxib (Celebrex) 200 mg PO DAILY cyclobenzaprine 10 mg PO BID PRN 30 days levonorgestrel (Mirena) intrauterine losartan 25 mg PO DAILY Is last menstrual period known: No (IUD) HPI HPI 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 She sees her primary care provider. she has been working very hard on losing weight, but it is very very frustrating and difficult and they have had a very stressful time this year because they have ended up with her 's 16-year-old nephew whom they now fostering. Their entire lives have changed in terms of the many issues to deal with. She recently saw her primary care provider. She has fasting blood work that she needs to do soon. She recently had her mammogram and everything was fine. She is challenged by orthopedic challenges as well she is working so hard on the weight loss, but it is very challenging and it is getting more difficult to move around and she gets short of breath. She has been seeing the president and cmo but she feels that is already stuff she already knows. Difficulty is implementing changes especially amidst the stressors that up ended family life. She had a very bad cold in February that lasted 4 weeks and she had some stress incontinence during that time but it seems to have resolved. She has a Mirena IU S. this is her 4th 1 and she loves it and she plans to use it as long as she can. she has not had a period in very many years. she has never had an abnormal Pap smear. she has no concerns whatsoever about any kind of infection.. [facility] Medical History Anxiety and depression PTSD (post-traumatic stress disorder) Lumbar disc disease with radiculopathy ADD (attention deficit disorder) Piriformis syndrome of both sides Inattention Hearing loss of both ears Bursitis of both hips Lumbago Obesity Dyslipidemia Vitamin D deficiency Surgical History Hx of surgical procedure (06/13/23) History of surgery History of eye surgery [place] teeth removed Family History Mother Substance use disorder Mental health disorder Breast cancer, Onset Age: 45 Father HTN (hypertension) Dyslipidemia Substance use disorder Amyloidosis Maternal Grandfather Lung cancer Social History Housing: House Comment: COUNTS CORRECT Patient Tobacco Use Status: Never used Tobacco e-Cigarette/Vaping Use: Never Used Second Hand Smoke Exposure: No service: No Current occupational status: unemployed Current occupation: [employer] at home Cognitive needs: No Hearing needs: No Vision needs: Yes Female Reproductive History Menstrual Age of Menarche: 16 control method: progestin IUCD Total pregnancies: 1 Full term: 1 Date of last pap smear: 07/12/23 (negative,[id number]) History of abnormal pap smear: Yes (20 yrs ago) Date of Mammogram: 06/18/24 (negative) Physical Exam Vital Signs: Last Vital Signs BP 118/70 07/14/24 13:29 BMI result Body Mass Index 45.0 Const General: healthy appearing, comfortable, no acute distress, well developed and alert Nutritional Appearance: average body habitus Orientation/consciousness: patient oriented x3 Limitations: no limitations HEENT Head: Yes normocephalic Neck Neck: Yes normal visual inspection Chest Chest palpation & inspection: normal inspection of the chest Breast/axilla inspection: normal inspection of the breasts and normal inspection of the axillae Breast/axilla palpation: normal palpation of the breasts and normal palpation of the axillae Resp Effort & Inspection: normal respiratory effort GI Inspection: Yes normal to inspection, No Abdominal wall edema and No distended Palpation (GI): Soft to palpation and nontender Other: External exam within normal limits vagina is pink and normal and healthy appearing with normal healthy appearing mucus. Cervix is multiparous pink smooth healthy mobile nontender Mirena string visible about 1-2 cm extending from os. Uterus small midposition mobile nontender adnexa nontender. fair tone with Kegel. General: Yes bladder normal to palpation External Female Exam: normal external appearance and normal appearance of the urethra Speculum Exam - Vagina: normal appearance of the vagina, normal palpation and normal vaginal discharge Speculum Exam - Cervix: normal appearance of the cervix, normal palpation and nontender Bimanual exam- vagina & uterus: normal bimanual exam, normal palpation, uterine size normal, bladder normal to palpation, consistency normal, normal palpation, uterine mobility normal, uterine shape normal, No Cervical tenderness present, non-tender and no cervical motion tenderness Bimanual Exam- Adnexa, other: normal adnexae, no masses, normal and No adnexal tenderness Neuro General: patient oriented x3 Assessment & Plan Assessment & Plan (1) Well woman exam with routine gynecological exam: Code(s): Z01.419 - Encounter for gynecological examination (general) (routine) without abnormal findings Category: Medical (2) Presence of 52 mg levonorgestrel-releasing intrauterine device (IUD): Comment: old Mirena, reportedly inserted 2016, removed 07/12/23 and new 1 replaced, into 8 cm uterus and strings trimmed to 3 to 3.5 cm. Code(s): Z97.5 - Presence of (intrauterine) contraceptive device Category: Social Hx (3) Cervical cancer screening: Comment: 07/10/23 pap= neg w neg HPV. Code(s): Z12.4 - Encounter for screening for malignant neoplasm of cervix Category: Medical (4) Obesity, morbid, BMI 40.0-49.9: Code(s): E66.01 - Morbid (severe) obesity due to excess calories Category: Medical (5) Hypertension: Comment: Patient will return to office in 2 weeks to have blood pressure remeasured. Patient will also take measurements at home. Denies headaches or dizziness. Code(s): I10 - Essential (primary) hypertension Category: Medical Qualifiers: Hypertension type: unspecified Qualified Code(s): I10 - Essential (primary) hypertension Plan -----Discussed in this visit the following: healthy balanced diet, regular and consistent exercise, getting recommended health screens, doing the best she can for her particular health concerns, kegel exercises, pap smear screening and followup recommendations, mammography screening and SBE, normal changes in cycles in her life stage--- .---Discussed with pt, her wt, and BMI, and her goals. Discussed ideal dietary guidelines to assist in weight loss, focusing on vegetables and fruits and lean proteins, and minimizing fats and carbohydrates and eliminating empty calories. Discussed exercise, including regular, sufficient, and consistent cardio based exercise, and weight bearing exercise. Discussed barriers to exercise and healthy eating, and possible ways of establishing newer healthier habits. Discussed supports to help in her efforts, and timing issues. Discussed adequate sleep, and ways to achieve this. Discussed adequate water intake.-- Discussed the challenges of weight loss with all of the dimensions involved including a patterns and activities during the day and ways to add in walking or biking in a very regular accessible pattern , and the very real challenges of making these changes. Discussed donald menopausal changes and what to expect. In terms of the Mirena there is no reason to think about removing it is long as it is working well for her it was inserted last year and can be for 5-8 years . I wished her all the best with her efforts. RTC 1 year Coding Level of Care Code Est Pt Prev Care 40-64y(45411) Diagnoses Well woman exam with routine gynecological exam Z01.419 Presence of 52 mg levonorgestrel-releasing intrauterine device (IUD) Z97.5 Cervical cancer screening Z12.4 Obesity, morbid, BMI 40.0-49.9 E66.01 Hypertension, unspecified type I10 Hypertension type: unspecified
--- OUTSIDE RECORDS SUMMARY | 2024-07-14 15:39 | XMS_ITS | Clinical Summary ---
Author Organization [address] [facility] Address [address] [place] [address] Phone Care Team Providers Care Online Advertising Manager Name Role Phone Darrion Kendall MD Primary Care Provider Social History Tobacco Use Types Packs/Day Years Used Date Smoking Tobacco: Never Assessed Comments Unknown Sex and Gender Information Value Date Recorded Sex Assigned at Not on file Legal Sex Female 2:59 PM EST Gender Identity Not on file Sexual Orientation Not on file Plan of Treatment Upcoming Encounters Date Type Department Care Team ([facility] Contact Info) Description 07/21/2024 10:15 AM EDT Consult Orthopedic Surgery - [place] [id number] [phone] Reece Lopez DPM [address] [address] Health Maintenance Due Date Last Done Comments Breast Cancer Screening 1980 DTaP,Tdap,and Td Vaccines (1 - Tdap) 11/05/1999 Hepatitis B Vaccines (1 of 3 - 19+ 3-dose series) 11/05/1999 Cervical Cancer Screening: P ap Smear 2001 COVID-19 Vaccine ( - 2023-2 5 season) 2023 Depression Screening 05/19/2024 HIV Screening 05/19/2024 Hepatitis C Screening 05/19/2024 Social Influencers of Health Screening 05/19/2024 Influenza Vaccine (Season Ended) 2024 HIB Vaccines Aged Out No longer eligi [...] age to complete this topic Meningococcal B Vaccine Aged Out No l onger eligible based on patient's age to complete [...] topic Insurance [employer] Care Teams Online Advertising Manager Relationship Specialty Start Date End Date Darrion Kendall MD [address] [place] [id number] PCP - General Internal Medicine 05/18/24
== END 2024-07-14 14:45 | disposition home or self-care (01) ==
LOC: HO.HWSM 13:12
PROVIDERS: PCP Internal Medicine; Visit Provider Advanced Practice Midwife
DX: Z01.419 Encounter for gynecological examination (general) (routine) without abnormal findings (principal); I10 Essential (primary) hypertension; E66.01 Morbid (severe) obesity due to excess calories; Z97.5 Presence of (intrauterine) contraceptive device
CPT/HCPCS: 99396; 99459

== ENCOUNTER → 2024-07-14 13:12 | Outpatient (BNVA) | payer OTHER, SELFPAY | PROVIDERS: PCP Internal Medicine; Visit Provider Advanced Practice Midwife | DX: Z01.419 Encounter for gynecological examination (general) (routine) without abnormal findings (principal); E66.01 Morbid (severe) obesity due to excess calories; I10 Essential (primary) hypertension; Z97.5 Presence of (intrauterine) contraceptive device; Z68.42 Body mass index [BMI] 45.0-49.9, adult | CPT/HCPCS: 99396; 99459 ==

== ENCOUNTER 2024-08-27 08:32 | Outpatient (AMB) | payer OTHER, SELFPAY ==
--- OUTSIDE RECORDS SUMMARY | 2024-08-27 08:51 | XMS_ITS | Continuity of Care Document ---
Author Name [facility] Organization [facility] Care Team Providers Care Rip/Mould Operator Name Role Phone [facility] Unavailable Unavailable Problems Combined list of problems from Department of Defense and [facility] facilities. It does not include entries that were removed or entered in error. Problem Status Onset Date Problem Type Date of Resolution Comments Source Diagnosis: ICD-10-CM F43.9 Reaction to severe stress, unspecified Active Diagnosis [facility] Diagnosis: ICD-10-CM Z02.89 Encounter for other administrative examinations Active Diagnosis [facility] [place] [facility] Encounters Combined list of: 1) Encounters from Department of [facility] facilities going backup to the last 18 months, not all [place] inpatient encounters are included; 2) Encounters from the Department of [facility] facilities going backup to 280 months. Location Location Details Encounter Type Encounter Number Reason For Visit Attending Provider ADM Date DC Date Status Disposition Source [facility] [facility] Outpatient Encounter [id number] Diagnos is: ICD-10- CM Z02.89 Encount er for other adminis trative examina tions FRANCESCA ISLAS 02/28 [place] [facility] [place] [facility] [facility] Outpatient Encounter [id number] FRANCESCA ISLAS 02/28 [place] [facility] PSYTX W PT 45 MINUTES [id number] Diagnos is: ICD-10- CM F43.9 Reactio n to severe stress, unspeci DAV Uriostegui I 03/11 [facility] Procedures Combined list of: 1) Procedures from Department of Veterans Affairs facilities going back up to thelast 18 months, not all [place] non-surgical procedures are included; 2) All procedures from the Department of [facility] facilities. Procedure Procedure Type Code Date Perfomer Comments Sourc e PHYS/OTH QUALIFIED HEALTH HULL SORTER QUALIFIED,EDUCATION,TRAIN,LIC ENSURE/REGULATION (WHEN APPLICABLE) EDUC SER RENDERED TO PATS IN A GRP SETTING (EG,,OBESITY,OR DIABETIC INSTRUCT) 06/04/2000 [facility] PURE TONE AUDIOMETRY (THRESHOLD); AIR ONLY 02/28/2000 [facility] Social History Combined list of available smoking, tobacco, and other social history from Department of Defense and Veterans Affairs facilities. Social History Type Response Date Comment [facility] e This section is an empty social history section. [facility]
--- NOTE | 2024-08-27 09:00 | MHC.PC.OV ---
Intake Visit Reasons: forms Allergies latex Allergy (Unknown, Verified 07/14/24 13:30) Rash, redness diphenhydramine [From Benadryl] Adverse Reaction (Unknown, Verified 07/14/24 13:30) Hypertension eggs white Adverse Reaction (Unknown, Uncoded 07/14/24 13:30) stomach upset Flu shot Adverse Reaction (Unknown, Uncoded 07/14/24 13:30) GI upset quinoa Adverse Reaction (Unknown, Uncoded 07/14/24 13:30) severe vomiting and diarrhea Medication List - Last Reconciled 08/27/24 by Darrion Kendall MD albuterol sulfate 90 mcg/actuation 2 puffs inhalation Q6H PRN celecoxib (Celebrex) 200 mg PO DAILY cyclobenzaprine 10 mg PO BID PRN 30 days levonorgestrel (Mirena) intrauterine losartan 25 mg PO DAILY Tobacco use date assessed: 05/05/24 Dental Screening Dental Screen Date: 05/05/24 HPI forms HPI Details History - The patient is a 43-year-old female presenting with a request to complete paperwork for fostering her 16-year-old nephew, who has been residing with her since March. This is the first time she is undergoing the application process for fostering. - The patient also sought a review of her current medications for Essential Hypertension and muscle spasms, with no new health issues reported during this visit. Medical History: - Essential Hypertension - Muscle Spasms, managed with cyclobenzaprine Medications: - Losartan 25 mg for Essential Hypertension - Celecoxib for unspecified pain - Cyclobenzaprine for muscle spasms Social History: - Foster care arrangement: Currently fostering her 16-year-old nephew since March - Resident in a stable home environment Patient Instructions - Ensure to orange picker machine operator the completed paperwork for child fostering between 8:00 AM and 3:00 PM tomorrow. Review of Systems - Psychiatric: Denies emotional problems, mental state stable. - General: No fever no chills - Neurological: No headaches no dizziness - Ear nose throat: No sore throat no hearing difficulty no ear pain - Cardiovascular: No syncope, no chest pain, no palpitations - Gastrointestinal: No nausea vomiting or diarrhea [facility] Medical History Anxiety and depression PTSD (post-traumatic stress disorder) Lumbar disc disease with radiculopathy ADD (attention deficit disorder) Piriformis syndrome of both sides Inattention Hearing loss of both ears Bursitis of both hips Lumbago Obesity Dyslipidemia Vitamin D deficiency Surgical History Hx of surgical procedure (06/13/23) History of surgery History of eye surgery [place] teeth removed Family History Mother Substance use disorder Mental health disorder Breast cancer, Onset Age: 45 Father HTN (hypertension) Dyslipidemia Substance use disorder Amyloidosis Maternal Grandfather Lung cancer Social History Housing: House Comment: COUNTS CORRECT Patient Tobacco Use Status: Never used Tobacco e-Cigarette/Vaping Use: Never Used Second Hand Smoke Exposure: No service: No Current occupational status: unemployed Current occupation: [employer] at home Cognitive needs: No Hearing needs: No Vision needs: Yes Female Reproductive History Menstrual Age of Menarche: 16 Questionnaire Thrive Questionnaire Date Thrive assessed: 05/05/24 CHRISTIAN-7 AMB Questionnaire CHRISTIAN-7 Date CHRISTIAN - 7 assessed: 05/05/24 Source: Developed by Drs. Jann Camargo, Rachel Kumar, Varun Madrid and colleagues, with an educational aron from [employer]. Physical exam (Primary Care) Tobacco/Smoking Status: Tobacco use Status Tobacco use date assessed 05/05/24 05/05/24 14:00 Patient Tobacco Use Status Never used Tobacco 05/05/24 14:00 e-Cigarette/Vaping Use Never Used 05/05/24 14:00 Thrive Assessment: Date of Thrive Assessment Date Thrive assessed 05/05/24 05/05/24 14:00 Telehealth Telehealth Telehealth Platform: [facility] Location of provider rendering services: practice address Location of patient: address on file Patient Identification confirmed using: Name, : Yes Telehealth method: video Patient verbally consented to treatment: Yes Patient verbally consented to billing insurance company: Yes Patient informed of any privacy concerns related to visit: Yes Minutes spent on Phone/Video with Pt.: 13 Coding Level of Care Code Tele Est Pt Level 3 (63771) Diagnoses Child in care of non-parental family member Z63.32; Z62.21 Hypertension, essential I10 Lumbar paraspinal muscle spasm M62.830 Assessment & Plan Assessment & Plan (1) Child in care of non-parental family member: Code(s): Z63.32 - Other absence of family member; Z62.21 - Child in welfare custody Category: Medical (2) Hypertension, essential: Code(s): I10 - Essential (primary) hypertension Category: Medical (3) Lumbar paraspinal muscle spasm: Code(s): M62.830 - Muscle spasm of back Category: Medical Plan History - The patient is a 43-year-old female presenting with a request to complete paperwork for fostering her 16-year-old nephew, who has been residing with her since March. This is the first time she is undergoing the application process for fostering. - The patient also sought a review of her current medications for Essential Hypertension and muscle spasms, with no new health issues reported during this visit. Medical History: - Essential Hypertension - Muscle Spasms, managed with cyclobenzaprine Medications: - Losartan 25 mg for Essential Hypertension - Celecoxib for unspecified pain - Cyclobenzaprine for muscle spasms Social History: - Foster care arrangement: Currently fostering her 16-year-old nephew since March - Resident in a stable home environment Patient Instructions - Ensure to orange picker machine operator the completed paperwork for child fostering between 8:00 AM and 3:00 PM tomorrow.
== END 2024-08-27 09:42 | disposition home or self-care (01) ==
LOC: HO.HMCC 08:32
PROVIDERS: PCP Internal Medicine; Visit Provider Internal Medicine
DX: I10 Essential (primary) hypertension (principal); Z63.32 Other absence of family member; M62.830 Muscle spasm of back

== ENCOUNTER → 2024-08-27 08:32 | Outpatient (BNVA) | payer OTHER, SELFPAY | PROVIDERS: PCP Internal Medicine; Visit Provider Internal Medicine ==

== ENCOUNTER 2024-09-16 11:00 | Outpatient (RCR) | payer OTHER, SELFPAY | END 2024-09-16 12:02 | disposition home or self-care (01) | LOC: HO.PTCHIC 11:00 | PROVIDERS: PCP Internal Medicine; Visit Provider Podiatrist | DX: M72.2 Plantar fascial fibromatosis (principal) | CPT/HCPCS: 97110; 97112; 97140; 97162 ==

== ENCOUNTER → 2024-10-16 11:29 | Outpatient (BNVA) | payer OTHER, SELFPAY | PROVIDERS: PCP Internal Medicine | DX: Z01.30 Encounter for examination of blood pressure without abnormal findings (principal) | CPT/HCPCS: 99211 ==

== ENCOUNTER 2024-10-20 10:04 | Outpatient (REF) | payer OTHER, SELFPAY ==
--- OUTSIDE RECORDS SUMMARY | 2024-10-20 10:49 | XMS_ITS | Continuity of Care Document ---
Author Name [facility] Organization [facility] Care Team Providers Care Health Care Analyst Name Role Phone [facility] Unavailable Unavailable Procedures Combined list of: 1) Procedures from Department of Veterans Affairs facilities going back up to thelast 18 months, not all [place] non-surgical procedures are included; 2) All procedures from the Department of Defense facilities. Procedure Procedure Type Code Date Perfomer Comments Sourc e PHYS/OTH QUALIFIED HEALTH CLASSIFICATION ANALYST QUALIFIED,EDUCATION,TRAIN,LIC ENSURE/REGULATION (WHEN APPLICABLE) EDUC SER RENDERED TO PATS IN A GRP SETTING (EG,,OBESITY,OR DIABETIC INSTRUCT) 06/04/2000 [facility] PURE TONE AUDIOMETRY (THRESHOLD); AIR ONLY 02/28/2000 [facility] Social History Combined list of available smoking, tobacco, and other social history from Department of Defense and Veterans Affairs facilities. Social History Type Response Date Comment Sourc e This section is an empty social history section. [facility]
[2024-10-20 13:11] LABS: MANUAL DIFF FLAG NO
[2024-10-20 13:31] LABS: Hematocrit 39.0 % (37.0-47.0); Hemoglobin 13.2 g/dl (12.0-16.0); Imm Gran Abs Auto 0.02 X10*3/uL (0.00-0.03); Imm Gran Pct Auto 0.3 % (0.0-0.4); Lymphocytes Absolute Auto 1.1 X10*3/uL (1.2-4.9); Mean Corpuscular HGB Conc 33.8 g/dl (31.0-35.0); Mean Corpuscular Hemoglobin 29.3 pg (27.0-33.0); Mean Corpuscular Volume 86.7 fL (80.0-98.0); NRBC Abs Auto 0.000 X10*3/uL (0.0-0.012); NRBC Pct Auto 0.0 /100WBC (0.0-0.2); Platelet Count 351 X10*3/uL (160-400); Red Blood Count 4.50 X10*6/uL (4.20-5.50); White Blood Count 6.3 X10*3/uL (4.8-10.8)
[2024-10-20 13:44] LABS: Alanine Aminotransferase 26 U/L (0-31); Albumin Level 4.0 g/dL (3.5-5.0); Alkaline Phosphatase 82 U/L (39-117); Anion Gap 11 (12-20); Aspartate Amino Transferase 25 U/L (5-31); Blood Urea Nitrogen 13 mg/dL (9-16); Calcium 8.7 mg/dL (8.4-10.2); Carbon Dioxide 26 mmol/L (22-29); Chloride 106 mmol/L (96-108); Cholesterol 207 mg/dL (<200); Estimated Glomerular Filt Rate > 60; HDL Cholesterol 41 mg/dL (>40); Potassium 3.9 mmol/L (3.3-5.1); Sodium 139 mmol/L (135-145); Total Protein 6.3 g/dL (6.5-8.0); Triglycerides 88 mg/dL (<150)
[2024-10-24 16:47] LABS: Vitamin D 25-OH, D2 <4 ng/mL; Vitamin D 25-OH, D3 29 ng/mL; Vitamin D 25-OH, Total 29 ng/mL (30-100)
== END 2024-10-20 10:05 | disposition home or self-care (01) ==
LOC: HO.HMGCLDS 10:04
PROVIDERS: PCP Internal Medicine; Visit Provider Internal Medicine
DX: Z00.01 Encounter for general adult medical examination with abnormal findings (principal); E55.9 Vitamin D deficiency, unspecified; M51.16 Intervertebral disc disorders with radiculopathy, lumbar region; I10 Essential (primary) hypertension; E66.09 Other obesity due to excess calories; M62.830 Muscle spasm of back
CPT/HCPCS: 36415; 80053; 80061; 82306; 84443; 85025

== ENCOUNTER 2024-10-25 18:18 | Emergency (ER) | payer OTHER, SELFPAY ==
--- NOTE | ~2024-10-25 | XR_ITS ---
CLINICAL HISTORY: cough, shortness of breath 2 view chest x-ray Comparison: None provided Findings: The lungs are clear. Heart size is normal. No acute fracture. IMPRESSION: 1. No acute findings. This document has been electronically signed by: Kodi Bergeron MD on 10/25/2024 18:48:12
[2024-10-25 18:24] VITALS: BP 145/74; PULSE 91; RESP 17; TEMP 36.6; O2SAT 98; BMI 43.7
--- NOTE | 2024-10-25 18:24 | ED_ITS ---
HPI - General Adult General Chief complaint: General Medical Stated complaint: increased BP; light headness, fatigue, cp Time Seen by Provider: 10/25/24 19:39 Source: patient Limitations: no limitations History of Present Illness ED Provider: Ro Flaherty PA-C HPI narrative: 43-year-old female who is otherwise healthy presents with cough and cold symptoms x3 days. Associated dry repetitive bronchospasm type cough, generalized malaise. Denies fever or chills. The patient's is sick with similar symptoms. Denies history of asthma, COPD or tobacco use. Patient was also concerned because she is hypertensive at home, 165/93. Related Data Home Medications ?Medication ?Instructions ?Recorded ?Confirmed levonorgestrel (Mirena) intrauterine 10/28/20 Previous Rx's ?Medication ?Instructions ?Recorded albuterol sulfate 90 mcg/actuation 2 puff inhalation Q 6H PRN 04/24/23 aerosol inhaler shortness of breath or wheez ing #8.5 grams celecoxib 200 mg capsule (Celebrex) 200 mg PO DAILY #3 0 caps 10/13/24 cyclobenzaprine 10 mg tablet 10 mg PO BID PRN muscle s pasm 30 10/13/24 days #60 tabs losartan 25 mg tablet 25 mg PO DAILY #90 tabs 09/23 05/19 albuterol sulfate 90 mcg/actuation 2 puff inhalation Q 4-6H PRN 10/25/24 aerosol inhaler (Ventolin HFA) shortness of breath or wheezing #8.5 grams prednisone 20 mg tablet 40 mg (2 x 20 mg) PO DAILY # 8 tabs 10/25/24 Allergies Allergy/AdvReac Type Severity Reaction Status Date / Time latex Allergy Unknown Rash, Verified 10/25/24 18:27 redness diphenhydramine (From AdvReac Unknown Hypertensio Verified 10/25/24 18:27 Benadryl) n eggs white AdvReac Unknown stomach Uncoded 10/25/24 18:27 upset Flu shot AdvReac Unknown GI upset Uncoded 10/25/24 18:27 quinoa AdvReac Unknown severe Uncoded 10/25/24 18:27 vomiting and diarrhea Review of Systems 2 Review of Systems: Yes all other systems are reviewed and are negative Constitutional: Constitutional: Denies chills, Denies fatigue, Denies fever(s) and Reports malaise Cardiovascular: Cardiovascular: Denies chest pain and Denies dyspnea Respiratory: Respiratory: Denies chest congestion, Reports cough, Denies dyspnea and Denies wheezing Gastrointestinal: Gastrointestinal: Denies abdominal pain, Denies nausea and Denies vomiting Endocrine: Endocrine: Denies fatigue Allergic/Immunologic: Allergic/Immunologic: Denies wheezing PMFSH Past Medical History Attestation statement: The following information was validated with the patient. Medical History Anxiety and depression PTSD (post-traumatic stress disorder) Lumbar disc disease with radiculopathy ADD (attention deficit disorder) Piriformis syndrome of both sides Inattention Hearing loss of both ears Bursitis of both hips Lumbago Obesity Dyslipidemia Vitamin D deficiency Surgical History Hx of surgical procedure (06/13/23) History of surgery History of eye surgery [place] teeth removed Family History Family History Mother Substance use disorder Mental health disorder Breast cancer, Onset Age: 45 Father HTN (hypertension) Dyslipidemia Substance use disorder Amyloidosis Maternal Grandfather Lung cancer Social History Social History Housing: House Comment: COUNTS CORRECT Patient Tobacco Use Status: Never used Tobacco e-Cigarette/Vaping Use: Never Used Second Hand Smoke Exposure: No Advance Directives: No Advance Directives Information Provided: Yes Do you have a plan to hurt others: No Plan service: No Current occupational status: unemployed Current occupation: [employer] at home Cognitive needs: No Hearing needs: No Vision needs: Yes Physical Exam ED Vital Signs: Vital Signs - 24 hr 10/25/24 18:24 10/25/24 20:01 10/25/24 20:04 Temperature 98 F Pulse Rate 91 95 92 Respiratory Rate 17 18 Blood Pressure 145/74 H Pulse Oximetry 98 95 Oxygen Delivery Method Room Air Room Air 10/25/24 20:58 Temperature 98.7 F Pulse Rate 98 Respiratory Rate 18 Blood Pressure 130/68 Pulse Oximetry 98 Oxygen Delivery Method Room Air BMI result Body Mass Index 43.7 Const Other: Alert Orientation/consciousness: patient oriented x3 Resp Other: Lungs clear to auscultation, not tachypneic, active bronchospasm cough Cardio Other: Normal peripheral perfusion Skin Other: Warm dry no rash Neuro General: patient oriented x3, gait normal, no focal motor deficits and CN's II- XI intact bilaterally Psych Other: Cooperative Course Course Course Narrative: This is an RME performed by Abdirahman Kim FOOD TESTER: Additional HPI, ROS, PE not included below will be deferred to primary provider. Patient is a 43-year-old female who presents emergency department for evaluation. She has been feeling recently having cold-like symptoms, nonproductive cough, difficulty. chest palpitations, dizziness. Has only taken Mucinex DM. She also expressed concern for elevated blood pressure, has been following with her primary care doctor, 5 days ago her losartan was increased from 25 mg to 50 mg, she continues to have elevated readings as high as 165/93. Plan: Serum labs, ECG, viral serologies, CXR Medications Administered Discontinued Medications Generic Name Dose Route Start Last Admin Trade Name Freq PRN Reason Stop Dose Admin Albuterol Sulfate 7.5 mg 10/25/24 19:45 10/25/24 20:02 Albuterol Sulfate (0.083%) 2.5 Mg/3 Ml Vial.Neb INHALE 10/25/24 19:46 7.5 mg ONCE ONE Administration Prednisone 40 mg 10/25/24 19:45 10/25/24 19:59 Prednisone 20 Mg Tablet PO 10/25/24 19:46 40 mg ONCE ONE Administration Medical Decision Making Medical Decision Making [facility] Narrative: 43-year-old female who is otherwise healthy presents with cough and cold symptoms x3 days. Associated dry repetitive bronchospasm type cough, generalized malaise. Denies fever or chills. The patient's is sick with similar symptoms. Denies history of asthma, COPD or tobacco use. Patient was also concerned because she is hypertensive at home, 165/93. No chronic issues History: Per patient I have considered the following differential diagnoses: ACS/end-organ damage, hypertensive urgency, hypertensive emergency, viral syndrome, pneumonia, bronchitis, viral syndrome Plan: Given the report of hypertension, ACS/assessing for end-organ damage was considered, screening labs including cardiac enzymes EKG were obtained. To note the patient has no risk factors for coronary artery disease, her heart score is 0. Viral panel ordered that was negative chest x-ray ordered that was negative. The patient has a bronchitis, she does not use tobacco, she does not have asthma or COPD, we will treat with albuterol and prednisone, antibiotics are not warranted at this time. I have independently reviewed the following tests: Labs: No leukocytosis, not anemic, not , no electrolyte abnormality, troponin < 2.7, viral panel negative EKG: Sinus rhythm with PACs, rate 83, no ischemic changes, QTC 432 Chest x-ray:Findings: The lungs are clear. Heart size is normal. No acute fracture. IMPRESSION: 1. No acute findings. Lab Data 10/25/24 18:51 10/25/24 18:51 Labs: Lab Results 10/25/24 Range/Units 18:51 WBC 7.1 (4.8-10.8) X10*3/uL RBC 4.58 (4.20-5.50) X10*6/uL Hgb 13.5 (12.0-16.0) g/dl Hct 37.7 (37.0-47.0) % MCV 82.3 (80.0-98.0) fL MCH 29.5 (27.0-33.0) pg MCHC 35.8 H (31.0-35.0) g/dl RDW 13.2 (11.0-16.0) % Plt Count 308 (160-400) X10*3/uL MPV 8.5 L (9.4-12.3) fL Immature Gran % (Auto) 0.4 (0.0-0.4) % Neut % (Auto) 55.2 (45-73) % Lymph % (Auto) 34.1 (20-40) % Ogle % (Auto) 7.3 (2-11) % Eos % (Auto) 2.9 (0-4) % Baso % (Auto) 0.1 (0-2) % Lymph # (Auto) 2.4 (1.2-4.9) X10*3/uL Ogle # (Auto) 0.5 (0.1-1.2) X10*3/uL Eos # (Auto) 0.2 (0.0-0.4) X10*3/uL Baso # (Auto) 0.0 (0.0-0.2) X10*3/uL Abs Immat Gran (auto) 0.03 (0.00-0.03) X10*3/uL Absolute Neuts (auto) 3.9 (2.0-8.3) x10*3/uL Absolute Nucleated RBC 0.000 (0.0-0.012) X10*3/uL Nucleated RBC % (auto) 0.0 (0.0-0.2) /100WBC Smear Tech's Comments VERIFIED Sodium 139 (135-145) mmol/L Potassium 3.8 (3.3-5.1) mmol/L Chloride 106 (96-108) mmol/L Carbon Dioxide 25 (22-29) mmol/L Anion Gap 12 (12-20) BUN 16 (9-16) mg/dL Creatinine 0.81 (0.5-1.4) mg/dL Estim Creat Clear Calc 103.8 Estimated GFR > 60 Random Glucose 92 (60-115) mg/dL Calcium 8.7 (8.4-10.2) mg/dL Magnesium 1.9 (1.6-2.6) mg/dL Total Bilirubin 0.2 (0.0-1.0) mg/dL AST 29 (5-31) U/L ALT 33 H (0-31) U/L Alkaline Phosphatase 102 (39-117) U/L Troponin I High Sens < 2.7 (<3.5-17.0) ng/L B-Natriuretic Peptide < 10 (<100) pg/mL Total Protein 6.9 (6.5-8.0) g/dL Albumin 4.3 (3.5-5.0) g/dL Lipase 20 (8-78) U/L Influenza Type A (PCR) NEGATIVE (Negative) Influenza Type B (PCR) NEGATIVE (Negative) RSV RNA Qual (PCR) NEGATIVE (Negative) SARS-CoV-2 RNA (RT-PCR) NEGATIVE (Negative) Discharge Plan Discharge Clinical Impression: Bronchitis, Acute viral syndrome Patient Disposition: Home, Self-Care Instructions: Acute Bronchitis (ED), Viral Syndrome (ED) Additional Instructions: All of your screening labs including a cardiac enzymes were normal. You were screened for influenza RSV and COVID, the viral panel was negative. The chest x-ray did not reveal pneumonia, there were no concerning changes on your EKG. You are being treated for bronchitis. See home care instructions. Use the albuterol as needed. Take the steroid as directed. Follow up with primary care as needed. Prescriptions: New albuterol sulfate [Ventolin HFA] 90 mcg/actuation HFA aerosol inhaler 2 puff inhalation Q4-6H PRN (Reason: shortness of breath or wheezing) Qty: 8.5 0RF prednisone 20 mg tablet 40 mg PO DAILY Qty: 8 0RF No Action celecoxib [Celebrex] 200 mg capsule 200 mg PO DAILY Qty: 30 0RF losartan 25 mg tablet 25 mg PO DAILY Qty: 90 0RF cyclobenzaprine 10 mg tablet 10 mg PO BID PRN (Reason: muscle spasm) 30 Days Qty: 60 0RF Mirena 20 mcg/24 hours (6 yrs) 52 mg intrauterine device intrauterine albuterol sulfate 90 mcg/actuation HFA aerosol inhaler 2 puff inhalation Q6H PRN (Reason: shortness of breath or wheezing) Qty: 8.5 0RF Interventions: ED Discharge Assessment Last Done: 10/25/24 20:58 Discharge Date/Time: 10/25/24 20:58 Print Language: [place]i
--- NOTE | 2024-10-25 18:30 | ECG_ITS ---
Test Reason : PALPITATION/DIZINESS Blood Pressure : */* mmHG Vent. Rate : 83 BPM Atrial Rate : 83 BPM P-R Int : 134 ms QRS Dur : 80 ms QT Int : 368 ms P-R-T Axes : 24 11 40 degrees QTcB Int : 432 ms Sinus rhythm with Premature atrial complexes Otherwise normal ECG No previous ECGs available Referred By: Carleen Kim Electronically Signed By: DANIEL AGUAYO
[2024-10-25 18:57] LABS: Hematocrit 37.7 % (37.0-47.0); Hemoglobin 13.5 g/dl (12.0-16.0); Imm Gran Abs Auto 0.03 X10*3/uL (0.00-0.03); Imm Gran Pct Auto 0.4 % (0.0-0.4); Lymphocytes Absolute Auto 2.4 X10*3/uL (1.2-4.9); MANUAL DIFF FLAG SCAN; Mean Corpuscular HGB Conc 35.8 g/dl (31.0-35.0); Mean Corpuscular Hemoglobin 29.5 pg (27.0-33.0); Mean Corpuscular Volume 82.3 fL (80.0-98.0); NRBC Abs Auto 0.000 X10*3/uL (0.0-0.012); NRBC Pct Auto 0.0 /100WBC (0.0-0.2); Platelet Count 308 X10*3/uL (160-400); Red Blood Count 4.58 X10*6/uL (4.20-5.50); SCAN SMEAR FLAG 1; White Blood Count 7.1 X10*3/uL (4.8-10.8)
[2024-10-25 19:11] LABS: Alanine Aminotransferase 33 U/L (0-31); Albumin Level 4.3 g/dL (3.5-5.0); Alkaline Phosphatase 102 U/L (39-117); Anion Gap 12 (12-20); Aspartate Amino Transferase 29 U/L (5-31); Blood Urea Nitrogen 16 mg/dL (9-16); Calcium 8.7 mg/dL (8.4-10.2); Carbon Dioxide 25 mmol/L (22-29); Chloride 106 mmol/L (96-108); Creatinine Clr Calc Pharmacy 103.8; Estimated Glomerular Filt Rate > 60; Lipase 20 U/L (8-78); Magnesium 1.9 mg/dL (1.6-2.6); Potassium 3.8 mmol/L (3.3-5.1); Sodium 139 mmol/L (135-145); Total Protein 6.9 g/dL (6.5-8.0)
[2024-10-25 19:16] LABS: B Type Natriuretic Peptide < 10 pg/mL (<100)
[2024-10-25 19:20] LABS: Troponin-I High Sensitivity < 2.7 ng/L (<3.5-17.0)
[2024-10-25 19:33] LABS: Resp Syncy Virus RNA Qual PCR NEGATIVE (Negative); SARS COV2 PCR INHOUSE NEGATIVE (Negative)
[2024-10-25 20:01] VITALS: PULSE 95; O2SAT 95
[2024-10-25] MEDS: Albuterol Sulfate (0.083%) 2.5 MG/3 ML VIAL.NEB 7.5 MG INHALE (20:02)
[2024-10-25 20:04] VITALS: PULSE 92; RESP 18; O2SAT 96
[2024-10-25 20:58] VITALS: BP 130/68; PULSE 98; RESP 18; TEMP 37.1; O2SAT 98
== END 2024-10-25 20:58 | disposition home or self-care (01) ==
PROVIDERS: Nurse Practitioner Family; Emergency Provider Emergency Medicine; PCP Internal Medicine
DX: J40 Bronchitis, not specified as acute or chronic (principal); B34.9 Viral infection, unspecified; R05.9 Cough, unspecified; R53.83 Other fatigue; Z03.818 Encounter for observation for suspected exposure to other biological agents ruled out; I10 Essential (primary) hypertension
CPT/HCPCS: 71046; 80053; 83690; 83735; 83880; 84484; 85025; 87637; 93005; 99284

== ENCOUNTER → 2024-10-25 18:30 | Outpatient (BNV) | payer OTHER, SELFPAY | PROVIDERS: Visit Provider Radiology Diagnostic Radiology | DX: R06.02 Shortness of breath (principal) | CPT/HCPCS: 71046 ==

== ENCOUNTER → 2024-10-25 18:30 | Outpatient (BNV) | payer OTHER, SELFPAY | PROVIDERS: Emergency Provider Emergency Medicine; PCP Internal Medicine; Visit Provider Internal Medicine | DX: I49.1 Atrial premature depolarization (principal) | CPT/HCPCS: 93010 ==

== ENCOUNTER 2024-11-18 10:14 | Outpatient (AMB) | payer OTHER, SELFPAY ==
--- NOTE | 2024-11-18 10:17 | A.OFFPC_ITS ---
Vital Signs 11/18/24 10:18 Height 5 ft 2 in Weight 238 lb BMI 43.5 BP 124/88 Blood Pressure Location Lt brachial Position Sitting Respiration 16 Pulse 74 Pulse Source Pulse Oximeter Temp 98.2 F Temp Source Oral Pulse Oximetry (%) 97 Oxygen Delivery Method Room Air Intake Visit Reasons: 6m follow up, resched Electric Shovel Operator Required: No Accompanied by: Self / Same As Patient Allergies latex Allergy (Unknown, Verified 11/18/24 10:18) Rash, redness diphenhydramine (From Benadryl) Adverse Reaction (Unknown, Verified 11/18/24 10:18) Hypertension eggs white Adverse Reaction (Unknown, Uncoded 10/25/24 18:27) stomach upset Flu shot Adverse Reaction (Unknown, Uncoded 10/25/24 18:27) GI upset quinoa Adverse Reaction (Unknown, Uncoded 10/25/24 18:27) severe vomiting and diarrhea Medication List - Last Reconciled 11/18/24 by Darrion Kendall MD albuterol sulfate 90 mcg/actuation (Ventolin HFA) 2 puffs inhalation Q4-6H PRN albuterol sulfate 90 mcg/actuation 2 puffs inhalation Q6H PRN celecoxib (Celebrex) 200 mg PO DAILY cyclobenzaprine 10 mg PO BID PRN 30 days levonorgestrel (Mirena) intrauterine losartan 25 mg PO DAILY Tobacco use date assessed: 05/05/24 Dental Screening Dental Screen Date: 11/18/24 Did you have a dental visit in the last 12 months?: Yes Did you have a dental problem in the last 6 months where you did not have access to dental care?: No Was dental information given to patient?: Patient has dentist HPI 6m follow up, resched HPI Details History The patient is a 44-year-old female presenting for six-month follow-up appointment Elevated Blood Pressure: - Noted an increase in blood pressure a few weeks ago. - Previous reading was 145/74 mmHg, whic h later improved to 130/68 mmHg. - Attributes increase to stress associat ed with moving and recent illness. - On losartan since a past appointment, increased to 50 mg daily. - she has noted that she hadn't experien nithin ankle swelling since starting the medication, unless standing for a prolonged period. Bronchitis: - Symptoms developed after an initial pr esentation of cold-like symptoms. - ESR for bronchitis occurred on the 3rd of this month. - She had a persistent cough that was se caity enough to cause discomfort through the body. - Treated with prednisone 20 mg for four days and used an albuterol inhaler. - Initially developed symptoms of a cold , leading to a visit to the emergency department. - Patient associates elevation in blood pressure with cold/bronchitis onset. Musculoskeletal Pain: - Occasionally takes Celebrex and cyclob enzaprine as needed for hip and back discomfort. - Notices improvement with daily walking and stretching exercises. - Describes the issues as manageable wit hout daily medication. Stress: - Moving to [place] on December 07 and current transitions in care and logistics contribute to perceived stress affecting health. - Ongoing contact with foster child stone quiroz from her care; emotional impact noted. Medical History: - History of Essential Hypertension. - Previously diagnosed with bronchitis. - Experiences intermittent musculoskelet al discomfort (hip and back). Medications: - Losartan, 50 mg daily for hypertension . - Celebrex (as needed), for hip and back pain. - Cyclobenzaprine (as needed), for muscl e relaxation. Social History: - Currently transitioning to a new [facility] in [place], involving preparation to move. - and supportive spouse who also experienced similar cold symptoms recently. - Engages in daily walking and stretchin g to manage musculoskeletal symptoms. 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 Problem List - Essential Hypertension - Bronchitis [resolved] - Musculoskeletal Pain - morbid obesity Diagnostic results - Labs: Hemoglobin, CBC, blood count, el ectrolytes, kidney functions, liver enzymes are normal. - Tests: Negative for influenza, RSV, an d COVID. [place] of Care - Transitioning to a new [facility] ider in [place]; insurance transfer confirmed. Patient Instructions - Continue taking losartan 50mg daily. - Engage in regular physical activity aguirre ch as walking and stretching. - Use albuterol inhaler as needed for br onchitis symptoms.. - Manage stress related to moving and tr ansitioning care. - Hydration and rest to aid recovery fro m bronchitis. Review of Systems General: No fever no chills neurological: No headaches no dizziness ear nose throat: No sore throat no hearing difficulty no ear pain cardiovascular: No syncope, no chest pain, no palpitations gastrointestinal: No nausea vomiting or diarrhea endocrine: No polyuria polydipsia no heat intolerance genitourinary: No dysuria skin: No new complaints Physical Exam general: No acute distress HEENT: No acute findings neck: Supple respiratory system: Able to talk in full sentences, no audible wheeze no stridor cardiovascular: S1-S2 RRR, blood pressure was 145/74, then it came down to 130/68 gastrointestinal: No pain extremities: No new findings, no swelling of ankles SWIM COACH: Alert awake oriented x3 motor sensory intact skin: Normal turgor PFSH Medical History Anxiety and depression PTSD (post-traumatic stress disorder) Lumbar disc disease with radiculopathy ADD (attention deficit disorder) Piriformis syndrome of both sides Inattention Hearing loss of both ears Bursitis of both hips Lumbago Obesity Dyslipidemia Vitamin D deficiency Surgical History Hx of surgical procedure (06/13/23) History of surgery History of eye surgery [place] teeth removed Family History Mother Substance use disorder Mental health disorder Breast cancer, Onset Age: 45 Father HTN (hypertension) Dyslipidemia Substance use disorder Amyloidosis Maternal Grandfather Lung cancer Social History Housing: House Comment: COUNTS CORRECT Patient Tobacco Use Status: Never used Tobacco e-Cigarette/Vaping Use: Never Used Second Hand Smoke Exposure: No service: No Current occupational status: unemployed Current occupation: [employer] at home Cognitive needs: No Hearing needs: No Vision needs: Yes Female Reproductive History Menstrual Age of Menarche: 16 Questionnaire PHQ-9 Over the last 2 weeks, how often have you been bothered by any of the following problems? 1. Little interest or pleasure in doing things: several days 2. Feeling down, depressed, or hopeless: not at all 3. Trouble falling or staying asleep, or sleeping too much: nearly every day 4. Feeling tired or having little energy: nearly every day 5. Poor appetite or overeating: more than half the days 6. Feeling bad about yourself - or that you are a failure or have let yourself or your family down: not at all 7. Trouble concentrating on things, such as reading the newspaper or watching television: nearly every day 8. Moving or speaking so slowly that other people could have noticed. Or the opposite - being so fidgety or restless that you have been moving around a lot more than usual: nearly every day 9. Thoughts that you would be better off or of hurting yourself in some way: not at all Total score: 15 Depression Screening Interpretation: Positive Depression Screening Follow-up: Existing condition and Community Mental Health Worker F/U Depression Screening Done: Yes 60829 - PHQ-9 Billing: Yes Source: Developed by Drs. Jann Camargo, Rachel Kumar, Varun Madrid and colleagues, with an educational aron from [employer]. Thrive Questionnaire Date Thrive assessed: 05/02/24 I am a: Patient What is your living situation today?: I have a steady place to live Within the past 12 months, did the food you bought not last and you didn't have the money to get more?: Never true Within the past 12 months, did you worry whether your food would run out before you got money to buy more?: Never true Do you have trouble paying for medicines?: No Do you have trouble getting transportation to medical appointments?: No Do you have trouble paying your heating and electricity bill?: No Do you have trouble taking care of your child, family member or friend?: No Do you have trouble with day-to-day activities such as bathing, preparing meals, shopping, managing finances, etc.?: Yes Are you currently unemployed and looking for a job?: No Are you interested in more education?: No Please select the resources that you would like help with: None Currently or been in a relationship where the following occur: No concerns reported THRIVE Score: 0 CHRISTIAN-7 AMB Questionnaire CHRISTIAN-7 Date CHRISTIAN - 7 assessed: 05/05/24 Source: Developed by Drs. Jann Camargo, Rachel Kumar, Varun Madrid and colleagues, with an educational aron from [employer]. Physical exam (Primary Care) Vital Signs: Last Vital Signs Temp 98.2 F 11/18/24 10:18 Pulse 74 11/18/24 10:18 Resp 16 11/18/24 10:18 BP 124/88 11/18/24 10:18 Pulse Ox 97 11/18/24 10:18 Oxygen Delivery Method Room Air 11/18/24 10:18 BMI result Body Mass Index 43.5 Tobacco/Smoking Status: Tobacco use Status Tobacco use date assessed 05/05/24 11/18/24 10:22 Patient Tobacco Use Status Never used Tobacco 11/18/24 10:22 e-Cigarette/Vaping Use Never Used 11/18/24 10:22 PHQ-9: PHQ-9 Score PHQ-9: Total score 15 11/18/24 10:36 Depression Screening Interpretation: Positive Depression Screening Follow-up: Existing condition and Community Mental Health Worker F/U Thrive Assessment: Date of Thrive Assessment Date Thrive assessed 05/02/24 11/18/24 10:22 Currently or been in a relationship where the following occur: No concerns reported Coding Level of Care Code Est Pt Level 4 (94122) Diagnoses Hypertension, essential I10 Morbid obesity due to excess calories E66.01 Spondylosis of lumbar region without myelopathy or radiculopathy M47.816 Spinal osteoarthritis complication: without myelopathy or radiculopathy Anxiety and depression F41.9; F32.A Bronchitis J40 Additional Codes PHQ-9 - 96738 - PHQ-9 Billing: Yes ([id number]) Assessment & Plan Assessment & Plan (1) Hypertension, essential: Code(s): I10 - Essential (primary) hypertension Category: Medical (2) Morbid obesity due to excess calories: Code(s): E66.01 - Morbid (severe) obesity due to excess calories Category: Medical (3) Degenerative joint disease (DJD) of lumbar spine: Code(s): M47.816 - Spondylosis without myelopathy or radiculopathy, lumbar region Category: Medical Qualifiers: Spinal osteoarthritis complication: without myelopathy or radiculopathy Qualified Code(s): M47.816 - Spondylosis without myelopathy or radiculopathy, lumbar region (4) Anxiety and depression: Comment: ff'd a [facility]. Code(s): F41.9 - Anxiety disorder, unspecified; F32.A - Depression, unspecified Category: Medical (5) Bronchitis: Code(s): J40 - Bronchitis, not specified as acute or chronic Category: Medical Plan History The patient is a 44-year-old female presenting for six-month follow-up appointment Elevated Blood Pressure: - Noted an increase in blood pressure a few weeks ago. - Previous reading was 145/74 mmHg, which later improved to 130/68 mmHg. - Attributes increase to stress associated with moving and recent illness. - On losartan since a past appointment, increased to 50 mg daily. - she has noted that she hadn't experienced ankle swelling since starting the medication, unless standing for a prolonged period. Bronchitis: - Symptoms developed after an initial presentation of cold-like symptoms. - ESR for bronchitis occurred on the 3rd of this month. - She had a persistent cough that was severe enough to cause discomfort through the body. - Treated with prednisone 20 mg for four days and used an albuterol inhaler. - Initially developed symptoms of a cold, leading to a visit to the emergency department. - Patient associates elevation in blood pressure with cold/bronchitis onset. Musculoskeletal Pain: - Occasionally takes Celebrex and cyclobenzaprine as needed for hip and back discomfort. - Notices improvement with daily walking and stretching exercises. - Describes the issues as manageable without daily medication. Stress: - Moving to [place] on December 07 and current transitions in care and logistics contribute to perceived stress affecting health. - Ongoing contact with foster child removed from her care; emotional impact noted. Medical History: - History of Essential Hypertension. - Previously diagnosed with bronchitis. - Experiences intermittent musculoskeletal discomfort (hip and back). Medications: - Losartan, 50 mg daily for hypertension. - Celebrex (as needed), for hip and back pain. - Cyclobenzaprine (as needed), for muscle relaxation. Social History: - Currently transitioning to a new location in [place], involving preparation to move. - and supportive spouse who also experienced similar cold symptoms recently. - Engages in daily walking and stretching to manage musculoskeletal symptoms. 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 Problem List - Essential Hypertension - Bronchitis [resolved] - Musculoskeletal Pain/back pain - morbid obesity Diagnostic results - Labs: Hemoglobin, CBC, blood count, electrolytes, kidney functions, liver enzymes are normal. - Tests: Negative for influenza, RSV, and COVID. [place] of Care - Transitioning to a new healthcare provider in [place]; insurance transfer confirmed. Patient Instructions - Continue taking losartan 50mg daily. - Engage in regular physical activity such as walking and stretching. - Use albuterol inhaler as needed for bronchitis symptoms.. - Manage stress related to moving and transitioning care. - Hydration and rest to aid recovery from bronchitis. Medications: Changed From losartan 25 mg PO DAILY 90 tabs 0RF To losartan 50 mg PO DAILY 90 tabs 0RF
[2024-11-18 10:18] VITALS: BP 124/88; PULSE 74; RESP 16; TEMP 36.8; O2SAT 97; BMI 43.5
--- OUTSIDE RECORDS SUMMARY | 2024-11-18 11:01 | XMS_ITS | Continuity of Care Document ---
Author Name [facility] Organization [facility] Care Team Providers Care Child Care Coordinator Name Role Phone [facility] Unavailable Unavailable Social History Combined list of available smoking, tobacco, and other social history from Department of Defense and Veterans Affairs facilities. Social History Type Response Date Comment Sourc e This section is an empty social history section. [facility]
--- OUTSIDE RECORDS SUMMARY | 2024-11-18 11:02 | XMS_ITS | Clinical Summary ---
Author Organization [address] [facility] Address [address] [place] [address] Phone Care Team Providers Care Coal Bagger Name Role Phone Darrion Kendall MD Primary Care Provider [phone] Allergies Active Allergy Reactions Criticality Noted Date Comments Diphenhydramine Hcl 07/21/2024 Eggshell Membrane 07/21/2024 Latex 07/21/2024 Medications No known medications Encounters Date Type Department Care Team Description 09/29/2024 10:30 AM EDT Office Visit Orthopedic Surgery [facility] [address] [id number] Reece Lopez DPM Pain in right foot (Primary Dx); Pes planus of both feet; Equinus contracture of left ankle; Plantar fasciitis from Last 3 Months Social History Tobacco Use Types Packs/Day Years Used Date Smoking Tobacco: Never Assessed Comments Unknown Sex and Gender Information Value Date Recorded Sex Assigned at Not on file Legal Sex Female 2:59 PM EST Gender Identity Not on file Sexual Orientation Not on file Last Filed Vital Signs Vital Sign Reading Time Taken Comments Blood Pressure - - Pulse - - Temperature - - Respiratory Rate - - Oxygen Saturation - - Inhaled Oxygen Concentration - - Weight 112 kg (246 lb) 09/29/2024 10:44 AM EDT Height 157.5 cm (5' 2.01 ) 09/29/2024 10:44 AM E DT Body Mass Index 44.98 09/29/2024 10:44 AM EDT Plan of Treatment Health Maintenance Due Date Last Done Comments Breast Cancer Screening 1980 Hepatitis B Vaccines (1 of 3 - 19+ 3-dose series) 11/05/1999 Cervical Cancer Screening: P ap Smear 2001 COVID-19 Vaccine (2023-2 5 season) 2023 10/31/2020, 10/10/2020 Depression Screening 03/25/2024 HIV Screening 05/19/2024 Hepatitis C Screening 05/19/2024 Social Influencers of Health Screening 05/19/2024 Influenza Vaccine (#1) 2024 DTaP,Tdap,and Td Vaccines (2 - Td or Tdap) 05/05/2034 05/05/2024 HIB Vaccines Aged Out No longer eligi [...] age to complete this topic Pneumococcal Vaccine: Pediatrics (0 to 5 Years) and At-Risk Patients (6 to 49 Years) Aged Out No longer eligible b ased on patient's age to complete this topic RSV Immunization Patients Under 20 months Aged Out No longer eligible b ased on patient's age to complete this topic Varicella Vaccines Aged Out No longer eligible based on patient's age to complete this topic Procedures Procedure Name Priority Date/Time Associated Diagnosis Comments INJECTION TENDON OR LIGAMENT Routine 09/29/2024 10:30 AM EDT Plantar fasciitis from Last 3 Months Results * Injection tendon or ligament (09/29/2024 10:30 AM EDT) Narrative Reece Lopez DPM - 09/29/2024 10:30 AM EDT Reece Lopez DPM 09/29/2024 12:09 PM Injection tendon or ligament Indications: pain Details: 25 G needle Medications: 0.5 mL lidocaine (PF) 1 %; 40 mg triamcinolone acetonide 40 mg/mL Informed Consent: Laterality: Right us Reece Lopez DPM IN CLINIC/BEDSIDE ORDERABLE S Final Result from Last 3 Months [place] [id number] [employer] Care Teams Coal Bagger Relationship Specialty Start Date End Date Darrion Kendall MD [address] [place] [id number] PCP - General Internal Medicine 05/18/24
== END 2024-11-18 10:44 | disposition home or self-care (01) ==
LOC: HO.HMCC 10:15
PROVIDERS: PCP Internal Medicine; Visit Provider Internal Medicine
DX: I10 Essential (primary) hypertension (principal); E66.01 Morbid (severe) obesity due to excess calories; Z68.41 Body mass index [BMI] 40.0-44.9, adult; M47.816 Spondylosis without myelopathy or radiculopathy, lumbar region; F41.9 Anxiety disorder, unspecified; F32.A Depression, unspecified; J40 Bronchitis, not specified as acute or chronic

== ENCOUNTER → 2024-11-18 10:14 | Outpatient (BNVA) | payer OTHER, SELFPAY | PROVIDERS: PCP Internal Medicine; Visit Provider Internal Medicine | DX: I10 Essential (primary) hypertension (principal); E66.01 Morbid (severe) obesity due to excess calories; M47.816 Spondylosis without myelopathy or radiculopathy, lumbar region; R03.0 Elevated blood-pressure reading, without diagnosis of hypertension; J40 Bronchitis, not specified as acute or chronic; F41.9 Anxiety disorder, unspecified; F32.A Depression, unspecified; Z68.43 Body mass index [BMI] 50.0-59.9, adult | CPT/HCPCS: 96127; 99212 ==